=== PATIENT | female | born 1970 | race Caucasian/White ===

== ENCOUNTER 2016-09-19 22:33 | Emergency (ER) | payer OTHER ==
--- NOTE | 2016-09-19 23:01 | ERPHSYRPT ---
- History of Present Illness Time Seen by Provider: 09/19/16 22:59 Source: patient Exam Limitations: no limitations Patient Subjective Stated Complaint: pt reports dog tripped her et she fell on back of head-reports blurred vision after fall et is now nauseated-denies vomiting Triage Nursing Assessment: pt pink warm et [id number] qeustions correctly-moving all extremities with ease Physician History: pt reports dog tripped her et she fell on back of head-reports blurred vision after fall et is now nauseated-denies vomiting Occurred: just prior to arrival Reason for Fall: slipped, tripped Injuries/Pain Location: head Loss of Consciousness: no loss of consciousness Severity of Pain-Max: mild Severity of Pain-Current: mild Modifying Factors: Improves With: nothing Associated Symptoms (Fall): denies symptoms Allergies/Adverse Reactions: morphine Allergy (Verified 09/19/16 22:41) IVP DYE Allergy (Uncoded 09/19/16 22:41) Home Medications: Fluoxetine HCl [Prozac] 40 mg PO DAILY 09/19/16 [History] Naproxen 500 mg PO UD 09/19/16 [History] Simvastatin [Zocor] 40 mg PO DAILY 09/19/16 [History] Hx Tetanus, Diphtheria Vaccination/Date Given: No Hx Influenza Vaccination/Date Given: No Hx Pneumococcal Vaccination/Date Given: No Immunizations Up to Date: Yes - Review of Systems Constitutional: No Fever, No Chills Eyes: No Symptoms Ears, Nose, & Throat: No Symptoms Respiratory: No Cough, No Dyspnea Cardiac: No Chest Pain, No Edema, No Syncope Abdominal/Gastrointestinal: No Abdominal Pain, No Nausea, No Vomiting, No Diarrhea Genitourinary Symptoms: No Dysuria Musculoskeletal: No Back Pain, No Neck Pain Skin: No Rash Neurological: No Dizziness, No Focal Weakness, No Sensory Changes Psychological: No Symptoms Endocrine: No Symptoms All Other Systems: Reviewed and Negative - Past Medical History Pertinent Past Medical History: Yes Neurological History: No Pertinent History ENT History: No Pertinent History Cardiac History: High Cholesterol Respiratory History: No Pertinent History Endocrine Medical History: No Pertinent History Musculoskeletal History: No Pertinent History GI Medical History: No Pertinent History History: No Pertinent History Psycho-Social History: No Pertinent History Female Reproductive Disorders: No Pertinent History Other Medical History: juvenile arthritis - Past Surgical History Past Surgical History: Yes Neuro Surgical History: No Pertinent History Cardiac: No Pertinent History Respiratory: No Pertinent History Gastrointestinal: Appendectomy Genitourinary: No Pertinent History Female Surgical History: Section, Hysterectomy, Other Other Surgical History: X1. D&C - Social History Smoking Status: Current every day smoker How long have you smoked: 20 Exposure to second hand smoke: No Drug Use: none Patient Lives Alone: No - Female History Hx Now: Yes - Nursing Vital Signs Nursing Vital Signs: Initial Vital Signs Temperature 97.6 F Temperature Source Oral Pulse Rate 92 Respiratory Rate 18 Blood Pressure [] 160/105 Pain Intensity 4 - Brent Coma Score Best Eye Response (Brent): (4) open spontaneously Best Verbal Response (Brent): (5) oriented Best Motor Response (Brent): (6) obeys commands [place] Total: 15 - Physical Exam General Appearance: no apparent distress, alert Head Injury: no evidence of injury Eye Exam: PERRL/EOMI ENT Exam: airway nml Neck Exam: normal inspection, No tenderness Respiratory/Chest Exam: normal breath sounds, No chest tenderness, No respiratory distress Cardiovascular Exam: normal heart sounds, regular rate/rhythm Gastrointestinal Exam: soft, No tenderness, No distention, No guarding, No ecchymosis Back Exam: normal inspection, No vertebral tenderness Extremity Exam: normal inspection, normal range of motion, pelvis stable, No deformities Neurologic Exam: alert, oriented x 3, cooperative, sensation nml, No motor deficits Skin Exam: normal color, warm, dry SpO2: 96 Oxygen Delivery: Room Air - CT Exams Head CT Interpretation: Tele-radiologist Report Ordered Tests: Active Orders 24 hr Category Date Time Status HEAD WITHOUT CONTRAST [CT] Stat Exams 09/19/16 22:52 Taken - Progress Progress: improved Counseled pt/family regarding: diagnosis, need for follow-up, rad results - Departure Time of Disposition: 23:41 Departure Disposition: Home Clinical Impression: Head injury, acute, without loss of consciousness Qualifiers: Encounter type: initial encounter Qualified Code(s): S09.90XA - Unspecified injury of head, initial encounter Condition: Stable Critical Care Time: No Referrals: MIKE GOYAL [ACTIVE STAFF] - Instructions: Prevent Falls, Closed Head Injury
[2016-09-19 23:49] VITALS: BP 142/89; PULSE 78; O2SAT 97
--- NOTE | 2016-09-20 08:16 | XRAY ---
Indication: Posterior head injury following fall. Multiple contiguous axial images obtained through the head without contrast. Comparison: None. Ventriculosulcal pattern appears symmetric. No acute intracranial hemorrhage, abnormal extra-axial fluid collection, or mass effect. Fourth ventricle is midline without hydrocephalus. Bony calvarium intact. Visualized paranasal sinuses and mastoid air cells are clear. Impression: No acute intracranial abnormalities. Comment: Preliminary interpretation was made by [facility]. No discrepancy. CTDI 48.07
== END 2016-09-19 23:49 | disposition home or self-care (01) ==
LOC: ED 22:33
DX: S09.90XA Unspecified injury of head, initial encounter (principal); W01.0XXA Fall on same level from slipping, tripping and stumbling without subsequent striking against object, initial encounter; R11.0 Nausea; E78.00 Pure hypercholesterolemia, unspecified; Z79.899 Other long term (current) drug therapy
CPT/HCPCS: 70450; 99283; 99284

== ENCOUNTER 2019-07-16 13:09 | Emergency (ER) | payer BC, OTHER, SELFPAY ==
[2019-07-16] MEDS ORDERED: TYLENOL EXTRA STRENGTH 500 MG PO STA (13:22)
[2019-07-16] MEDS ORDERED: MOTRIN 600 MG PO ONE (13:22)
--- NOTE | 2019-07-16 13:22 | ERPHSYRPT ---
- History of Present Illness Source: patient Exam Limitations: no limitations Physician History: Patient is here with right knee pain. Patient states that she ran into a bed rail last night. Location: right knee Quality: sharp Radiation: none Severity: moderate Duration: last night Timing: after injury Modifying factors/associated signs and symptoms: none tried Allergies/Adverse Reactions: morphine Allergy (Verified 07/16/19 13:23) IVP DYE Allergy (Uncoded 07/16/19 13:23) Home Medications: No Reportable Medications [No Reported Medications] 07/16/19 [History] Hx Tetanus, Diphtheria Vaccination/Date Given: No Hx Influenza Vaccination/Date Given: No Hx Pneumococcal Vaccination/Date Given: No Travel Risk - International Travel Have you traveled outside of the country in past 3 weeks: No Have you or anyone close to you been diagnosed with or: No Do your reside in a community with a known COVID-19 case?: Yes If Yes where:: [facility] - Coronavirus Screening Has patient experienced Coronavirus symptoms: No - Review of Systems Constitutional: No Fever, No Chills Eyes: No Symptoms Ears, Nose, & Throat: No Symptoms Respiratory: No Cough, No Dyspnea Cardiac: No Chest Pain, No Edema, No Syncope Abdominal/Gastrointestinal: No Abdominal Pain, No Nausea, No Vomiting, No Diarrhea Genitourinary Symptoms: No Dysuria Musculoskeletal: Other (right emmanuel pain ), No Back Pain, No Neck Pain Skin: No Rash Neurological: No Dizziness, No Focal Weakness, No Sensory Changes Psychological: No Symptoms Endocrine: No Symptoms All Other Systems: Reviewed and Negative - Past Medical History Pertinent Past Medical History: Yes Neurological History: No Pertinent History ENT History: No Pertinent History Cardiac History: High Cholesterol Respiratory History: No Pertinent History Endocrine Medical History: No Pertinent History Musculoskeletal History: No Pertinent History GI Medical History: No Pertinent History History: No Pertinent History Psycho-Social History: No Pertinent History Female Reproductive Disorders: No Pertinent History Other Medical History: juvenile arthritis - Past Surgical History Past Surgical History: Yes Neuro Surgical History: No Pertinent History Cardiac: No Pertinent History Respiratory: No Pertinent History Gastrointestinal: Appendectomy Genitourinary: No Pertinent History Female Surgical History: Section, Hysterectomy, Other Other Surgical History: X1. D&C - Social History Smoking Status: Current every day smoker How long have you smoked: 20 Exposure to second hand smoke: No Drug Use: none Patient Lives Alone: No - Nursing Vital Signs Nursing Vital Signs: Initial Vital Signs Temperature 98.0 F 07/16/19 13:24 Pulse Rate 84 07/16/19 13:24 Respiratory Rate 18 07/16/19 13:24 Blood Pressure 144/103 07/16/19 13:24 O2 Sat by Pulse Oximetry 98 07/16/19 13:24 Pain Scale Pain Intensity 8 - Physical Exam General Appearance: alert Eyes, Ears, Nose, Throat Exam: moist mucous membranes Neck Exam: non-tender, supple Cardiovascular/Respiratory Exam: chest non-tender, normal breath sounds, regular rate/rhythm, no respiratory distress Gastrointestinal/Abdominal Exam: non-tender, guarding Back Exam: normal inspection, No vertebral tenderness Neuro/Tendon Exam: normal sensation, normal motor functions Mental Status Exam: alert, oriented x 3, cooperative Skin Exam: normal color, warm, dry SpO2 Interpretation: normal Comments: No obvious deformity, sensation intact, 2+ capillary refill, 2 point tactile discrimination intact. 5 out of 5 strength. Decrease range of motion with pain. Compartments are soft, nontender. Overlying skin shows no tenting, bruising, ecchymosis. Ordered Tests: Active Orders 24 hr Category Date Time Status KNEE (3 VIEWS) Stat Exams 07/16/19 13:42 Taken Medication Summary Discontinued Medications Generic Name Dose Route Start Last Admin Trade Name Sincere PRN Reason Stop Dose Admin Acetaminophen 1,000 mg 07/16/19 13:22 07/16/19 13:34 Tylenol Extra Strength 500 Mg PO 07/16/19 13:23 1,000 mg STAT STA Administration Acetaminophen Confirm 07/16/19 13:33 Tylenol Extra Strength 500 Mg Administered 07/16/19 13:34 Dose 1,000 mg .ROUTE .STK-MED ONE Ibuprofen 600 mg 07/16/19 13:22 07/16/19 13:34 Motrin 600 Mg PO 07/16/19 13:23 600 mg STAT ONE Administration Ibuprofen Confirm 07/16/19 13:33 Motrin 600 Mg Administered 07/16/19 13:34 Dose 600 mg .ROUTE .STK-MED ONE - Progress Progress: improved Progress Note: 07/16/19 13:22 Patient has not tried Tylenol or ibuprofen yet. Will start with this. Will obtain x-ray of the right knee. 07/16/19 14:58 X-ray shows no obvious fracture. Patient feels improved with pain medication here. She was given follow-up with Orth this week. She will return here for any new or changing symptoms. Counseled pt/family regarding: diagnosis, need for follow-up - Departure Departure Disposition: Home Clinical Impression: Knee sprain Condition: Stable Critical Care Time: No Referrals: HUMBRETO FLETCHER NP [Primary Care Provider] - Instructions: Knee Sprain (DC) Forms: Ortho Referral
[2019-07-16] MEDS ORDERED: TYLENOL EXTRA STRENGTH 500 MG ONE (13:33)
[2019-07-16] MEDS ORDERED: MOTRIN 600 MG ONE (13:33)
[2019-07-16 14:24] VITALS: BP 132/88; PULSE 80; O2SAT 97
--- NOTE | 2019-07-16 18:59 | XRAY ---
Indication: Pain following injury. Comparison: None 3 views of the right knee demonstrates small medial condyle bone island. No other bony, articular, or soft tissue abnormalities.
== END 2019-07-16 14:23 | disposition home or self-care (01) ==
LOC: ED 13:09
DX: S83.91XA Sprain of unspecified site of right knee, initial encounter (principal); W22.09XA Striking against other stationary object, initial encounter; Y93.9 Activity, unspecified; M25.561 Pain in right knee
CPT/HCPCS: 73562; 99283; A9270-GY

== ENCOUNTER 2019-11-27 19:07 | Emergency (ER) | payer BC, OTHER ==
--- NOTE | 2019-11-27 20:02 | ERPHSYRPT ---
- History of Present Illness Source: patient Exam Limitations: no limitations Patient Subjective Stated Complaint: "I have neck pain that started two days ago and it goes down into my arm." Triage Nursing Assessment: Pt presented alert et oriented x3 answering questions appropriately. Pt reported left sided neck pain that radiates to the left arm. Pt reported associated parasthesias to the left arm. Pt denied any recent injuries or illnesses. Pupils 3mm brisk reaction. Oral mucosa pink/moist. Neck supple non-tender. No noted bruits/thrills. Symmetrical chest expansion. heart tones regular/clear S1/S2. Lungs clear with adequate airflow. Abdomen soft non- tender. Radial pulses equal bilateral. No noted dependent edema. Physician History: 49 yo WF w L trapzius pain x2 days described as pressure. Pt denies injury and states nothing makes better or worse. She also states that that she has been having palpatations/N wo V/diaphoresis/dyspnea. Occurred: days ago (2days) Method of Injury: unknown Quality: intermittent (pressure) Severity of Pain-Max: moderate Severity of Pain-Current: moderate Extremities Pain Location: shoulder: left Modifying Factors: Improves With: nothing Associated Symptoms: nausea, neck pain, No back pain, No chills, No chest discomfort, No chest pain, No dyspnea, No fever, No jaw pain, No sweating, No short of breath, No vomiting Allergies/Adverse Reactions: morphine Allergy (Verified 11/27/19 19:14) IVP DYE Allergy (Uncoded 11/27/19 19:14) Hx Tetanus, Diphtheria Vaccination/Date Given: No Hx Influenza Vaccination/Date Given: Yes Hx Pneumococcal Vaccination/Date Given: No Travel Risk - International Travel Have you traveled outside of the country in past 3 weeks: No - Coronavirus Screening Are you exhibiting any of the following symptoms?: No Close contact with a COVID-19 positive Pt in past 14-21 Days: No - Review of Systems Constitutional: No Symptoms Eyes: No Symptoms Ears, Nose, & Throat: No Symptoms Respiratory: No Symptoms Cardiac: Palpitations, No Chest Pain, No Edema, No Syncope, No Orthopnea, No PND Abdominal/Gastrointestinal: Nausea, No Abdominal Pain, No Vomiting, No Diarrhea, No Constipation, No Hematemesis, No Hematochezia, No Melena, No Dysphagia, No Appetite Changes Genitourinary Symptoms: No Symptoms Musculoskeletal: No Symptoms Skin: No Symptoms Neurological: No Symptoms Psychological: No Symptoms Endocrine: No Symptoms Hematologic/Lymphatic: No Symptoms Immunological/Allergic: No Symptoms - Past Medical History Pertinent Past Medical History: Yes Neurological History: No Pertinent History ENT History: No Pertinent History Cardiac History: High Cholesterol Respiratory History: No Pertinent History Endocrine Medical History: No Pertinent History Musculoskeletal History: No Pertinent History GI Medical History: No Pertinent History History: No Pertinent History Psycho-Social History: Depression Female Reproductive Disorders: No Pertinent History Other Medical History: juvenile arthritis - Past Surgical History Past Surgical History: Yes Neuro Surgical History: No Pertinent History Cardiac: No Pertinent History Respiratory: No Pertinent History Gastrointestinal: Appendectomy Genitourinary: No Pertinent History Musculoskeletal: Other Female Surgical History: Section, Hysterectomy, Other Other Surgical History: X1. D&C. Left shoulder surgery in 2017 for torn bicep - Social History Smoking Status: Current every day smoker How long have you smoked: 20 Exposure to second hand smoke: No Drug Use: none Patient Lives Alone: No Significant Family History: no pertinent family hx - Female History Hx Now: No (total hysterectomy) - Nursing Vital Signs Nursing Vital Signs: Initial Vital Signs Temperature 96.1 F 11/27/19 19:07 Pulse Rate 97 H 11/27/19 19:07 Respiratory Rate 18 11/27/19 19:07 Blood Pressure 167/98 11/27/19 19:07 O2 Sat by Pulse Oximetry 97 11/27/19 19:07 Pain Scale Pain Intensity 5 - Physical Exam General Appearance: no apparent distress Eyes, Ears, Nose, Throat Exam: normal ENT inspection, TMs normal, pharynx normal Neck Exam: normal inspection, non-tender Cardiovascular/Respiratory Exam: chest non-tender, normal breath sounds, regular rate/rhythm, heart sounds normal, no JVD Abdominal Exam: non-tender, soft, tenderness Back Exam: normal inspection, normal range of motion, CVA tenderness, No vertebral tenderness Shoulder Exam: pain (L trapezius TTP) Elbow/Forearm Exam: normal inspection Wrist Exam: normal inspection Hand Exam: normal inspection Mental Status Exam: alert, oriented x 3, cooperative Skin Exam: normal color, warm, dry, No rash SpO2 Interpretation: normal SpO2: 97 O2 Delivery: Room Air - Course Nursing assessment & vital signs reviewed: Yes EKG Interpreted by Me: RATE (NSR/R90/Normal Qt-Qtc/Flat T waves/No acute changes) Ordered Tests: Active Orders 24 hr Category Date Time Status EKG-ER Only STAT Care 11/27/19 19:32 Active TROPONIN Q3H Lab 11/27/19 19:45 Completed TROPONIN Q3H Lab 11/27/19 22:45 Ordered TROPONIN Q3H Lab 11/28/19 01:45 Ordered TROPONIN Q3H Lab 11/28/19 04:45 Ordered TROPONIN Q3H Lab 11/28/19 07:45 Ordered Lab/Rad Data: Laboratory Results 11/27/19 Range/Units 19:45 Troponin I < 0.012 (0.000-0.034) ng/mL - Progress Progress: unchanged Progress Note: 11/27/19 20:23 60mg IM toradol/Pain most likely strained L trapezius muscle Counseled pt/family regarding: lab results, diagnosis, need for follow-up - Departure Departure Disposition: Home Clinical Impression: Trapezius muscle strain Condition: Stable Critical Care Time: No Referrals: HUMBERTO FLETCHER LONG DISTANCE OPERATOR [Primary Care Provider] - Instructions: Cervical Muscle Strain (DC) Additional Instructions: Rest/heat/Massage Return to ER for increasing chest pain/shortness of breath Toradol as needed for pain Prescriptions: Ketorolac Tromethamine [Toradol] 10 mg PO TID PRN PRN #10 tablet PRN Reason: Pain
[2019-11-27] MEDS ORDERED: TORAdol 30 mg Injection IM ONE (20:22)
[2019-11-27] MEDS ORDERED: TORAdol 30 mg Injection ONE (20:27)
[2019-11-27 20:34] VITALS: BP 127/80; PULSE 78; O2SAT 96
== END 2019-11-27 20:44 | disposition home or self-care (01) ==
LOC: ED 19:07
DX: S46.919A Strain of unspecified muscle, fascia and tendon at shoulder and upper arm level, unspecified arm, initial encounter (principal); M54.2 Cervicalgia; M25.519 Pain in unspecified shoulder
CPT/HCPCS: 36415; 84484; 93005; 96372; 99284; J1885

== ENCOUNTER 2023-03-08 11:34 | Inpatient (IN) | payer BC, OTHER ==
--- NOTE | 2023-03-08 11:44 | ERPHSYRPT ---
- History of Present Illness Time Seen by Provider: 03/08/23 11:44 Source: patient, family Exam Limitations: clinical condition Physician History: This is a 52-year-old white female patient who continues to smoke cigarettes daily and presents with shortness of breath and coughing that began yesterday and worsened today. Patient has headache, myalgias and arthralgias as well as vomiting episode after gagging on phlegm when coughing. She also has some wheeziness. Patient has a history of hyperlipidemia, and depression. She is allergic to morphine and IVP dye. However, she did state that she can take hydrocodone for cough suppression. Patient's room air oxygenation level was 86%. After patient was placed on 2 L, her oxygen level went up to 93 to 95%. Timing/Duration: yesterday Severity of Dyspnea-Max: moderate Severity of Dyspnea-Current: moderate Possible Cause: occasional episodes Modifying Factors: Improves With: coughing Associated Symptoms: cough, wheezing, No chest pain/discomfort Allergies/Adverse Reactions: morphine Allergy (Verified 03/08/23 11:36) IVP DYE Allergy (Uncoded 03/08/23 11:36) Home Medications: Aspirin 81 gm Chew [Baby Aspirin 81 mg Chew] 1 tab PO DAILY 03/08/23 [History] Hx Tetanus, Diphtheria Vaccination/Date Given: No Hx Influenza Vaccination/Date Given: Yes Hx Pneumococcal Vaccination/Date Given: No Travel Risk - International Travel Have you traveled outside of the country in past 3 weeks: No - Coronavirus Screening Are you exhibiting any of the following symptoms?: Yes Symptoms: Cough: New Onset, Headaches/Body Aches/Fatigue Close contact with a COVID-19 positive Pt in past 14-21 Days: No - Review of Systems Constitutional: No Symptoms Eyes: No Symptoms Ears, Nose, & Throat: No Symptoms Respiratory: Cough, Dyspnea, Wheezing Cardiac: No Symptoms Abdominal/Gastrointestinal: Nausea Genitourinary Symptoms: No Symptoms Musculoskeletal: No Symptoms Skin: No Symptoms Neurological: No Symptoms Psychological: No Symptoms Endocrine: No Symptoms Hematologic/Lymphatic: No Symptoms Immunological/Allergic: No Symptoms All Other Systems: Reviewed and Negative - Past Medical History Pertinent Past Medical History: Yes Neurological History: No Pertinent History ENT History: No Pertinent History Cardiac History: High Cholesterol Respiratory History: No Pertinent History Endocrine Medical History: No Pertinent History Musculoskeletal History: No Pertinent History GI Medical History: No Pertinent History History: No Pertinent History Psycho-Social History: Depression Female Reproductive Disorders: No Pertinent History Other Medical History: juvenile arthritis - Past Surgical History Past Surgical History: Yes Neuro Surgical History: No Pertinent History Cardiac: No Pertinent History Respiratory: No Pertinent History Gastrointestinal: Appendectomy Genitourinary: No Pertinent History Musculoskeletal: Other Female Surgical History: Section, Hysterectomy, Other Other Surgical History: X1. D&C. Left shoulder surgery in 2017 for torn bicep - Social History Smoking Status: Current every day smoker How long have you smoked: 20 Exposure to second hand smoke: No Drug Use: none Patient Lives Alone: No Significant Family History: no pertinent family hx - Nursing Vital Signs Nursing Vital Signs: Initial Vital Signs Temperature 98.5 F 03/08/23 11:40 Pulse Rate 96 H 03/08/23 11:40 Respiratory Rate 26 H 03/08/23 11:40 Blood Pressure 168/96 03/08/23 11:40 O2 Sat by Pulse Oximetry 86 L 03/08/23 11:40 Pain Scale Pain Intensity 5 - Physical Exam General Appearance: mild distress, alert, anxiety Eye Exam: PERRL/EOMI, eyes nml inspection Ears, Nose, Throat Exam: hearing grossly normal, normal ENT inspection, normal pharynx Neck Exam: normal inspection, non-tender, supple, full range of motion Respiratory Exam: respiratory distress, rhonchi (Bilateral), wheezing (Bilateral expiratory), No chest tenderness Cardiovascular/Chest Exam: normal heart sounds, regular rate/rhythm Abdominal/Gastrointestinal Exam: soft, normal bowel sounds, tenderness Rectal Exam: not done Extremity Exam: non-tender, normal range of motion, normal inspection Neurologic Exam: alert, oriented x 3, cooperative, table tender II-XII nml as tested, normal mood/affect Skin Exam: normal color, warm, dry Lymphatic Exam: No adenopathy SpO2 Interpretation: hypoxic O2 Delivery: Room Air - Course Nursing assessment & vital signs reviewed: Yes EKG Interpreted by Me: RATE, Sinus Rhythm, Right Mobile Deviation, NORMAL INTERVALS, NORMAL QRS, NORMAL ST-T, Other (No acute ischemic changes on today's twelve-lead EKG.) Ordered Tests: Active Orders 24 hr Category Date Time Status Fisher Mussel STAT Care 03/08/23 11:55 Active EKG-ER Only STAT Care 03/08/23 11:55 Active IV Insertion STAT Care 11/20/23 11:55 Active Pulse Oximetry (ED) STAT Care 03/08/23 11:55 Active CHEST 1 VIEW (PORTABLE) Stat Exams 03/08/23 11:55 Completed CHEST WITHOUT CONTRAST [CT] Stat Exams 03/08/23 14:14 Completed BLOOD CULTURE Stat Lab 03/08/23 12:20 Received CBC W DIFF Stat Lab 03/08/23 12:13 Completed CMP Stat Lab 03/08/23 12:13 Completed D-DIMER QUANTITATIVE Stat Lab 03/08/23 13:15 Completed Lactic Acid Stat Lab 03/08/23 13:15 Completed MONO SCREEN Stat Lab 03/08/23 12:13 Completed NT PRO BNPII Stat Lab 03/08/23 12:13 Completed TROPONIN Q4H Lab 03/08/23 12:13 Completed TROPONIN Q4H Lab 03/08/23 16:00 Ordered TROPONIN Q4H Lab 03/08/23 20:00 Ordered Transfer Order Routine Transfer 03/08/23 Ordered Medication Summary Generic Name Dose Route Start Last Admin Trade Name Freq PRN Reason Stop Dose Admin Sodium Chloride 1,000 mls @ 100 mls/hr 03/08/23 12:00 03/08/23 12:15 Sodium Chloride 0.9% 1000 Ml IV 04/07/23 11:59 100 mls/hr .Q10H ELIECER Administration Ceftriaxone Sodium/Dextrose 1 g in 50 mls @ 100 mls/hr 03/08/23 15:49 Rocephin 1 Gm-D5w 50 Ml Bag IV 03/08/23 16:18 STAT STA Discontinued Medications Generic Name Dose Route Start Last Admin Trade Name Freq PRN Reason Stop Dose Admin Hydrocodone Bitart/Acetaminophen 10 ml 03/08/23 11:57 03/08/23 12:24 Hydrocodone/Acetaminophen 5 Ml Udcup PO 03/08/23 11:58 10 ml STAT STA Administration Hydrocodone Bitart/Acetaminophen Confirm 03/08/23 12:13 Hydrocodone/Acetaminophen 5 Ml Udcup Administered 03/08/23 12:14 Dose 10 ml .ROUTE .STK-MED ONE Albuterol/Ipratropium Confirm 03/08/23 11:57 Ipratropium/Albuterol Sulfate 3 Ml Ampul.Neb Administered 03/08/23 11:58 Dose 3 ml IH .STK-MED ONE Albuterol/Ipratropium 3 ml 03/08/23 12:02 03/08/23 12:03 Ipratropium/Albuterol Sulfate 3 Ml Ampul.Neb IH 03/08/23 12:03 3 ml STAT ONE Administration Methylprednisolone Sodium 0 mg 03/08/23 11:56 03/08/23 12:15 Succinate 125 mg/ Sterile IV 03/08/23 11:57 125 mg Water 2 ml STAT ONE Administration Methylprednisolone Sodium Succinate Confirm 03/08/23 12:13 Methylprednis Sod Succ 125 Mg/2 Ml Vial Administered 03/08/23 12:14 Dose 125 mg .ROUTE .STK-MED ONE Ondansetron HCl 4 mg 03/08/23 11:55 03/08/23 12:14 Ondansetron Hcl 4 Mg/2 Ml Vial IV 03/08/23 11:56 4 mg STAT STA Administration Ondansetron HCl Confirm 03/08/23 12:13 Ondansetron Hcl 4 Mg/2 Ml Vial Administered 03/08/23 12:14 Dose 4 mg .ROUTE .STK-MED ONE Sterile Water Confirm 03/08/23 12:13 Water For Injection,Sterile 10 Ml Vial Administered 03/08/23 12:14 Dose 10 ml IJ .STK-MED ONE Lab/Rad Data: Laboratory Result Diagrams 03/08/23 12:13 03/08/23 12:13 Laboratory Results 03/08/23 03/08/23 03/08/23 Range/Units 13:15 13:15 12:22 WBC (4.0-10.5) x10^3/uL RBC (4.1-5.4) x10^6/uL Hgb (12.0-16.0) g/dL Hct (35-47) % MCV (78-100) fL MCH (26-32) pg MCHC (32-36) g/dL RDW (11.5-14.0) % Plt Count (150-450) x10^3/uL MPV (7.5-11.0) fL Gran % (36.0-66.0) % Immature Gran % (Auto) (0.00-0.4) % Nucleat RBC Rel Count (0.00-0.1) % Eos # (Auto) (0-0.5) x10^3/uL Immature Gran # (Auto) (0.00-0.03) x10^3u/L Absolute Lymphs (auto) (1.0-4.6) x10^3/uL Absolute Monos (auto) (0.0-1.3) x10^3/uL Absolute Nucleated RBC (0.00-0.01) x10^3u/L Lymphocytes % (24.0-44.0) % Monocytes % (0.0-12.0) % Eosinophils % (0.00-5.0) % Basophils % (0.0-0.4) % Absolute Granulocytes (1.4-6.9) x10^3/uL Basophils # (0-0.4) x10^3/uL D-Dimer 0.23 (0.0-0.50) mg/L Sodium (137-145) mmol/L Potassium (3.5-5.1) mmol/L Chloride (98-107) mmol/L Carbon Dioxide (22-30) mmol/L Anion Gap (5-15) MEQ/L BUN (7-17) mg/dL Creatinine (0.52-1.04) mg/dL Estimated GFR ML/MIN Glucose (74-106) mg/dL Lactic Acid 1.7 (0.4-2.0) Calcium (8.4-10.2) mg/dL Total Bilirubin (0.2-1.3) mg/dL AST (14-36) U/L ALT (0-35) U/L Alkaline Phosphatase (38-126) U/L Troponin I (0.000-0.034) ng/mL NT-Pro-B Natriuret Pep (<300) pg/mL Serum Total Protein (6.3-8.2) g/dL Albumin (3.5-5.0) g/dL Monoscreen (NEGATIVE) Influenza Type A Ag (NEGATIVE) Influenza Type B Ag (NEGATIVE) RSV (PCR) (NEGATIVE) SARS-CoV-2 (PCR) (NEGATIVE) Group A Strep Antibody NOT DETECTED (NEGATIVE) 03/08/23 03/08/23 03/08/23 Range/Units 12:13 12:13 12:13 WBC (4.0-10.5) x10^3/uL RBC (4.1-5.4) x10^6/uL Hgb (12.0-16.0) g/dL Hct (35-47) % MCV (78-100) fL MCH (26-32) pg MCHC (32-36) g/dL RDW (11.5-14.0) % Plt Count (150-450) x10^3/uL MPV (7.5-11.0) fL Gran % (36.0-66.0) % Immature Gran % (Auto) (0.00-0.4) % Nucleat RBC Rel Count (0.00-0.1) % Eos # (Auto) (0-0.5) x10^3/uL Immature Gran # (Auto) (0.00-0.03) x10^3u/L Absolute Lymphs (auto) (1.0-4.6) x10^3/uL Absolute Monos (auto) (0.0-1.3) x10^3/uL Absolute Nucleated RBC (0.00-0.01) x10^3u/L Lymphocytes % (24.0-44.0) % Monocytes % (0.0-12.0) % Eosinophils % (0.00-5.0) % Basophils % (0.0-0.4) % Absolute Granulocytes (1.4-6.9) x10^3/uL Basophils # (0-0.4) x10^3/uL D-Dimer (0.0-0.50) mg/L Sodium (137-145) mmol/L Potassium (3.5-5.1) mmol/L Chloride (98-107) mmol/L Carbon Dioxide (22-30) mmol/L Anion Gap (5-15) MEQ/L BUN (7-17) mg/dL Creatinine (0.52-1.04) mg/dL Estimated GFR ML/MIN Glucose (74-106) mg/dL Lactic Acid (0.4-2.0) Calcium (8.4-10.2) mg/dL Total Bilirubin (0.2-1.3) mg/dL AST (14-36) U/L ALT (0-35) U/L Alkaline Phosphatase (38-126) U/L Troponin I < 0.012 (0.000-0.034) ng/mL NT-Pro-B Natriuret Pep 134 (<300) pg/mL Serum Total Protein (6.3-8.2) g/dL Albumin (3.5-5.0) g/dL Monoscreen NEGATIVE (NEGATIVE) Influenza Type A Ag (NEGATIVE) Influenza Type B Ag (NEGATIVE) RSV (PCR) (NEGATIVE) SARS-CoV-2 (PCR) (NEGATIVE) Group A Strep Antibody (NEGATIVE) 03/08/23 03/08/23 03/08/23 Range/Units 12:13 12:13 11:53 WBC 19.5 H (4.0-10.5) x10^3/uL RBC 5.23 (4.1-5.4) x10^6/uL Hgb 14.6 (12.0-16.0) g/dL Hct 44.6 (35-47) % MCV 85.3 (78-100) fL MCH 27.9 (26-32) pg MCHC 32.7 (32-36) g/dL RDW 14.4 H (11.5-14.0) % Plt Count 441 (150-450) x10^3/uL MPV 8.9 (7.5-11.0) fL Gran % 81.3 H (36.0-66.0) % Immature Gran % (Auto) 0.8 H (0.00-0.4) % Nucleat RBC Rel Count 0.0 (0.00-0.1) % Eos # (Auto) 0.13 (0-0.5) x10^3/uL Immature Gran # (Auto) 0.15 H (0.00-0.03) x10^3u/L Absolute Lymphs (auto) 2.01 (1.0-4.6) x10^3/uL Absolute Monos (auto) 1.28 (0.0-1.3) x10^3/uL Absolute Nucleated RBC 0.00 (0.00-0.01) x10^3u/L Lymphocytes % 10.3 L (24.0-44.0) % Monocytes % 6.6 (0.0-12.0) % Eosinophils % 0.7 (0.00-5.0) % Basophils % 0.3 (0.0-0.4) % Absolute Granulocytes 15.87 H (1.4-6.9) x10^3/uL Basophils # 0.05 (0-0.4) x10^3/uL D-Dimer (0.0-0.50) mg/L Sodium 139 (137-145) mmol/L Potassium 3.7 (3.5-5.1) mmol/L Chloride 102 (98-107) mmol/L Carbon Dioxide 26 (22-30) mmol/L Anion Gap 14.6 (5-15) MEQ/L BUN 9 (7-17) mg/dL Creatinine 0.46 L (0.52-1.04) mg/dL Estimated GFR 113.7 ML/MIN Glucose 118 H (74-106) mg/dL Lactic Acid (0.4-2.0) Calcium 9.8 (8.4-10.2) mg/dL Total Bilirubin 0.70 (0.2-1.3) mg/dL AST 25 (14-36) U/L ALT 18 (0-35) U/L Alkaline Phosphatase 127 H (38-126) U/L Troponin I (0.000-0.034) ng/mL NT-Pro-B Natriuret Pep (<300) pg/mL Serum Total Protein 8.7 H (6.3-8.2) g/dL Albumin 4.6 (3.5-5.0) g/dL Monoscreen (NEGATIVE) Influenza Type A Ag NEGATIVE (NEGATIVE) Influenza Type B Ag NEGATIVE (NEGATIVE) RSV (PCR) NEGATIVE (NEGATIVE) SARS-CoV-2 (PCR) NEGATIVE (NEGATIVE) Group A Strep Antibody (NEGATIVE) - Progress Progress: improved, re-examined Air Movement: fair Progress Note: 03/08/23 13:30 This patient's medical history is 1 of moderate to high complexity. Level complex in the work-up performed is based on review of the patient's past medical history, review the patient's medication list, review of patient drug allergy list, history present illness and physical findings on examination. The work-up in this patient includes placement of intravenous line, infusion of normal saline solution, CBC, CMP, chest x-ray, infusion of Solu-Medrol and provided the patient with hydrocodone elixir cough syrup, viral swabs, group A strep swab, D-dimer level and troponin level. 03/08/23 13:31 The chest x-ray was interpreted by the radiologist and I reviewed the impression. The single view chest x-ray shows nonacute findings. 03/08/23 15:04 I reviewed the laboratory results. I interpreted them as well. Patient has a leukocytosis with a white cell count of 19,500. The remainder of her work-up laboratory data does not show anything acute or emergent. CT scan of the chest without contrast shows chronic findings. There is right middle lobe scarring/atelectasis. There is old granulomatous nodule/disease present. This patient presented with hypoxia. Her oxygen saturation increased on 2 L. H owever she required an increase to 4 L and she has been maintaining her oxygen saturation levels at 95 to 96% on 4 L oxygen nasal cannula. When we attempted to drop her oxygen level she desatted down to 88%. Even on the 4 L nasal cannula oxygen supplementation, with ambulation, she dropped down to 90% oxygen saturation level. It may be that her x-rays have not shown a pneumonia at this point. She is not medically stable, in my opinion, to be discharged to home at this point. I will contact the telehospitalist about bringing her into the hospital. We will discuss issues about IV hydration, intravenous antibiotics, oxygen supplementation, steroid use intravenously and nebulizer treatments in the hospital setting under observation status. Blood Culture(s) Obtained: Yes Counseled pt/family regarding: lab results, diagnosis, need for follow-up, rad results Medical Desision Making - Discussion of managment Care discussed with:: hospitalist (Dr. Aranda) Reviewed:: Test results, Need for additional workup Agreed on:: place in obs Will see patient: in hospital - Diagnostic Testing Diagnostic test were ordered, analyzed, and reviewed by me: Yes Radiological Interpretation: Reviewed by me, Teleradiologist Report - Risk of complications The pt has a high risk of morbidity or mortality based on: Decision regarding hospitilization or escalation of hosp level of care - Departure Departure Disposition: Observation Clinical Impression: Shortness of breath, Hypoxia, Leukocytosis Condition: Fair Critical Care Time: No Referrals: DOCTOR,NO FAMILY [Primary Care Provider] - Follow up/PCP as directed
[2023-03-08] MEDS ORDERED: Zofran 4 MG/2 ML VIAL IV STA (11:55)
[2023-03-08] MEDS ORDERED: solu-MEDROL 125 MG, Sterile H2O 10 ml 2 ML IV ONE ×2 (11:56)
[2023-03-08] MEDS ORDERED: HYDROCODONE-ACETAMIN 2.5-108/5 ML SOLUTION PO STA (11:57)
[2023-03-08] MEDS ORDERED: DUONEB 0.5-3 MG/3 ml Neb IH ONE ×2 (11:57→12:02)
[2023-03-08] MEDS ORDERED: Sodium Chloride 0.9% 1000 ML 1,000 ML IV SCH (12:00)
[2023-03-08] MEDS ORDERED: HYDROCODONE-ACETAMIN 2.5-108/5 ML SOLUTION ONE (12:13)
[2023-03-08] MEDS ORDERED: Sterile H2O 10 ml IJ ONE (12:13)
[2023-03-08] MEDS ORDERED: Zofran 4 MG/2 ML VIAL ONE (12:13)
[2023-03-08] MEDS ORDERED: solu-MEDROL ONE (12:13)
[2023-03-08] MEDS ORDERED: Sodium Chloride 0.9% 1000 ML 1,000 ML ONE (12:13)
[2023-03-08 12:32] LABS: INFLUENZA A NEGATIVE (NEGATIVE); INFLUENZA B NEGATIVE (NEGATIVE); RESPIRATORY SYNCTIAL VIRUS NEGATIVE (NEGATIVE); SARS-CoV-2 Xpert Express NEGATIVE (NEGATIVE)
--- NOTE | 2023-03-08 12:35 | XRAY ---
Indication: Short of breath. Comparison: None Portable chest demonstrates tiny calcified pulmonary, mediastinal, and hilar calcified granulomas. No focal infiltrate, consolidation, or large effusion. Heart is not enlarged. Bony thorax intact. Impression: Nonacute one view chest. Incidental old granulomatous disease.
[2023-03-08 12:49] LABS: Absolute Neutrophil Ct (ANC) 15.87 x10^3/uL (1.4-6.9); BASOPHIL % 0.3 % (0.0-0.4); Basophil (Absolute #) 0.05 x10^3/uL (0-0.4); Eosinophil % 0.7 % (0.00-5.0); Eosinophil (Absolute #) 0.13 x10^3/uL (0-0.5); Hematocrit 44.6 % (35-47); Hemoglobin 14.6 g/dL (12.0-16.0); IMMATURE GRAN # 0.15 x10^3u/L (0.00-0.03); IMMATURE GRAN % 0.8 % (0.00-0.4); Lymphocyte (Absolute #) 2.01 x10^3/uL (1.0-4.6); Lymphocytes % 10.3 % (24.0-44.0); Mean Cell Volume 85.3 fL (78-100); Mean Corpuscular Hemoglobin 27.9 pg (26-32); Mean Corpuscular Hgb Concent. 32.7 g/dL (32-36); Mean Platelet Volume 8.9 fL (7.5-11.0); Monocyte (Absolute #) 1.28 x10^3/uL (0.0-1.3); Monocytes % 6.6 % (0.0-12.0); Neutrophil % 81.3 % (36.0-66.0); Platelet Count 441 x10^3/uL (150-450); Red Blood Count 5.23 x10^6/uL (4.1-5.4); Red Cell Distribution Width 14.4 % (11.5-14.0); White Blood Count 19.5 x10^3/uL (4.0-10.5)
[2023-03-08 13:04] LABS: ALBUMIN 4.6 g/dL (3.5-5.0); ANION GAP 14.6 MEQ/L (5-15); BILIRUBIN,TOTAL 0.7 mg/dL (0.2-1.3); Calcium 9.8 mg/dL (8.4-10.2); Creatinine 1 0.46 mg/dL (0.52-1.04); EST GLOMERULAR FILTRATION RATE 113.7 ML/MIN; Potassium 3.7 mmol/L (3.5-5.1); Total Protein 8.7 g/dL (6.3-8.2)
--- NOTE | 2023-03-08 14:56 | XRAY ---
Indication: Short of breath. Multiple contiguous axial images obtained through the chest without contrast. Comparison: None Lungs demonstrates multiple small bilateral calcific granulomas favoring old granulomatous disease. Minimal right middle lobe subsegmental atelectasis/scarring. No infiltrate or effusion. Heart is not enlarged with scattered coronary calcifications. Aorta is normal in course and caliber. [place] mediastinal and bilateral hilar calcified nodes. Bony thorax intact with minimal generative changes throughout the spine. Limited upper abdomen demonstrates 7 mm gallstone and tiny hepatic calcified granuloma. Impression: 1. Chronic findings including right middle lobe atelectasis/scarring, subcentimeter gallstone, and old granulomatous disease. 2. Remaining CT chest without contrast exam is negative.
[2023-03-08] MEDS ORDERED: ROCEPHIN 1 Gm-D5w 50 ml Bag** 1 G/50 ML IVPB IV STA (15:49)
[2023-03-08] MEDS ORDERED: ROCEPHIN 1 Gm-D5w 50 ml Bag** 1 G/50 ML IVPB IV ONE (15:54)
--- NOTE | 2023-03-08 17:23 | PCM.HP ---
History of Present Illness - Chief Complaint Chief Complaint: SOB, Hypoxia, Leukocytosis Date: 03/08/23 (1700) History of Present Illness: is a 52 year old female with dyspnea for about 24 hours. She has had severe cough during the night productive of purulent sputum She was hypoxic on admission with O2 down to 86%. She is doing well on supplemental oxygen. She developed some back pain from the coughing. She reports fever at home but no chills. No sore throat. No abdominal pain. She had nausea but no vomiting. No diarrhea or constipation. No urinary complaints. No edema. PMH includes hyperlipidemia and juvenile rheumatoid arthritis. Current meds only aspirin. She smokes about one PPD. - Review of Systems Constitutional: Fever, No Chills Eyes: No Symptoms Ears, Nose, & Throat: No Symptoms Respiratory: Cough, Short Of Breath, Wheezing Cardiac: No Symptoms, No Chest Pain, No Edema Abdominal/Gastrointestinal: No Symptoms Musculoskeletal: No Symptoms Skin: No Symptoms Neurological: No Symptoms Psychological: No Symptoms Endocrine: No Symptoms Hematologic/Lymphatic: No Symptoms Immunological/Allergic: No Symptoms All Other Systems: Reviewed and Negative Medications & Allergies Home Medications: Home Medication List Aspirin 81 gm Chew [Baby Aspirin 81 mg Chew] 81 mg PO DAILY 03/08/23 [History Confirmed 03/08/23] Ibuprofen 200 mg [Motrin 200 mg] 600 mg PO DAILY PRN PRN 03/08/23 [History Confirmed 03/08/23] Allergies/Adverse Reactions: Allergies Allergy/AdvReac Type Severity Reaction Status Date / Time morphine Allergy Verified 03/08/23 11:36 IVP DYE Allergy Uncoded 03/08/23 11:36 - Past Medical History Past Medical History: Yes Neurological History: No Pertinent History ENT History: No Pertinent History Cardiac History: High Cholesterol Respiratory History: No Pertinent History Endocrine Medical History: No Pertinent History Musculoskelatal History: No Pertinent History GI Medical History: No Pertinent History History: No Pertinent History Pyscho-Social History: Depression Reproductive Disorders: No Pertinent History Comment: juvenile arthritis - Female History Hx Last Menstrual Period: 2000 Are you now?: No - Past Surgical History Past Surgical History: Yes Neuro Surgical History: No Pertinent History Cardiac History: No Pertinent History Respiratory Surgery: No Pertinent History GI Surgical History: Appendectomy Genitourinary Surgical Hx: No Pertinent History Musculskeletal Surgical Hx: Other Female Surgical History: Section, Hysterectomy, Other Other Surgical History: X1. D&C. Left shoulder surgery in 2017 for torn bicep - Social History Smoking Status: Current every day smoker How long have you smoked: 45 years Exposure to second hand smoke: No Alcohol: None Drug Use: none Significant Family History: no pertinent family hx - Physical Exam Vital Signs: Vital Signs - 24 hr Temp Pulse Resp BP BP Pulse Ox 03/08/23 16:12 97.7 F 90 20 142/70 93 L 03/08/23 14:00 85 14 127/79 91 L 03/08/23 13:30 85 20 131/78 86 L 03/08/23 13:00 95 H 23 152/87 92 L 03/08/23 12:30 103 H 22 138/62 92 L 03/08/23 12:06 94 H 22 92 L 03/08/23 12:00 100 H 28 H 139/108 91 L 03/08/23 11:40 98.5 F 96 H 22 168/96 86 L General Appearance: moderate distress Neurologic Exam: alert, oriented x 3, cooperative, herbicide sprayer II-XII nml as tested, normal mood/affect Eye Exam: PERRL/EOMI, eyes nml inspection Ears, Nose, Throat Exam: normal ENT inspection Neck Exam: normal inspection, non-tender, supple Respiratory Exam: accessory muscle use, crackles/rales, wheezing Cardiovascular Exam: regular rate/rhythm, normal heart sounds Gastrointestinal/Abdomen Exam: soft, normal bowel sounds, No tenderness, No mass Pelvic Exam: not done Rectal Exam: deferred Back Exam: normal inspection Extremity Exam: normal inspection Skin Exam: normal color, warm, dry Results - Labs Lab/Micro Results: Lab Results-Last 24 Hours 03/08/23 03/08/23 03/08/23 Range/Units 11:53 12:13 12:13 WBC 19.5 H (4.0-10.5) x10^3/uL RBC 5.23 (4.1-5.4) x10^6/uL Hgb 14.6 (12.0-16.0) g/dL Hct 44.6 (35-47) % MCV 85.3 (78-100) fL MCH 27.9 (26-32) pg MCHC 32.7 (32-36) g/dL RDW 14.4 H (11.5-14.0) % Plt Count 441 (150-450) x10^3/uL MPV 8.9 (7.5-11.0) fL Gran % 81.3 H (36.0-66.0) % Immature Gran % (Auto) 0.8 H (0.00-0.4) % Nucleat RBC Rel Count 0.0 (0.00-0.1) % Eos # (Auto) 0.13 (0-0.5) x10^3/uL Immature Gran # (Auto) 0.15 H (0.00-0.03) x10^3u/L Absolute Lymphs (auto) 2.01 (1.0-4.6) x10^3/uL Absolute Monos (auto) 1.28 (0.0-1.3) x10^3/uL Absolute Nucleated RBC 0.00 (0.00-0.01) x10^3u/L Lymphocytes % 10.3 L (24.0-44.0) % Monocytes % 6.6 (0.0-12.0) % Eosinophils % 0.7 (0.00-5.0) % Basophils % 0.3 (0.0-0.4) % Absolute Granulocytes 15.87 H (1.4-6.9) x10^3/uL Basophils # 0.05 (0-0.4) x10^3/uL D-Dimer (0.0-0.50) mg/L Sodium 139 (137-145) mmol/L Potassium 3.7 (3.5-5.1) mmol/L Chloride 102 (98-107) mmol/L Carbon Dioxide 26 (22-30) mmol/L Anion Gap 14.6 (5-15) MEQ/L BUN 9 (7-17) mg/dL Creatinine 0.46 L (0.52-1.04) mg/dL Estimated GFR 113.7 ML/MIN Glucose 118 H (74-106) mg/dL Lactic Acid (0.4-2.0) Calcium 9.8 (8.4-10.2) mg/dL Total Bilirubin 0.70 (0.2-1.3) mg/dL AST 25 (14-36) U/L ALT 18 (0-35) U/L Alkaline Phosphatase 127 H (38-126) U/L Troponin I (0.000-0.034) ng/mL NT-Pro-B Natriuret Pep (<300) pg/mL Serum Total Protein 8.7 H (6.3-8.2) g/dL Albumin 4.6 (3.5-5.0) g/dL Monoscreen (NEGATIVE) Influenza Type A Ag NEGATIVE (NEGATIVE) Influenza Type B Ag NEGATIVE (NEGATIVE) RSV (PCR) NEGATIVE (NEGATIVE) SARS-CoV-2 (PCR) NEGATIVE (NEGATIVE) Group A Strep Antibody (NEGATIVE) 03/08/23 03/08/23 03/08/23 Range/Units 12:13 12:13 12:13 WBC (4.0-10.5) x10^3/uL RBC (4.1-5.4) x10^6/uL Hgb (12.0-16.0) g/dL Hct (35-47) % MCV (78-100) fL MCH (26-32) pg MCHC (32-36) g/dL RDW (11.5-14.0) % Plt Count (150-450) x10^3/uL MPV (7.5-11.0) fL Gran % (36.0-66.0) % Immature Gran % (Auto) (0.00-0.4) % Nucleat RBC Rel Count (0.00-0.1) % Eos # (Auto) (0-0.5) x10^3/uL Immature Gran # (Auto) (0.00-0.03) x10^3u/L Absolute Lymphs (auto) (1.0-4.6) x10^3/uL Absolute Monos (auto) (0.0-1.3) x10^3/uL Absolute Nucleated RBC (0.00-0.01) x10^3u/L Lymphocytes % (24.0-44.0) % Monocytes % (0.0-12.0) % Eosinophils % (0.00-5.0) % Basophils % (0.0-0.4) % Absolute Granulocytes (1.4-6.9) x10^3/uL Basophils # (0-0.4) x10^3/uL D-Dimer (0.0-0.50) mg/L Sodium (137-145) mmol/L Potassium (3.5-5.1) mmol/L Chloride (98-107) mmol/L Carbon Dioxide (22-30) mmol/L Anion Gap (5-15) MEQ/L BUN (7-17) mg/dL Creatinine (0.52-1.04) mg/dL Estimated GFR ML/MIN Glucose (74-106) mg/dL Lactic Acid (0.4-2.0) Calcium (8.4-10.2) mg/dL Total Bilirubin (0.2-1.3) mg/dL AST (14-36) U/L ALT (0-35) U/L Alkaline Phosphatase (38-126) U/L Troponin I < 0.012 (0.000-0.034) ng/mL NT-Pro-B Natriuret Pep 134 (<300) pg/mL Serum Total Protein (6.3-8.2) g/dL Albumin (3.5-5.0) g/dL Monoscreen NEGATIVE (NEGATIVE) Influenza Type A Ag (NEGATIVE) Influenza Type B Ag (NEGATIVE) RSV (PCR) (NEGATIVE) SARS-CoV-2 (PCR) (NEGATIVE) Group A Strep Antibody (NEGATIVE) 03/08/23 03/08/23 03/08/23 Range/Units 12:22 13:15 13:15 WBC (4.0-10.5) x10^3/uL RBC (4.1-5.4) x10^6/uL Hgb (12.0-16.0) g/dL Hct (35-47) % MCV (78-100) fL MCH (26-32) pg MCHC (32-36) g/dL RDW (11.5-14.0) % Plt Count (150-450) x10^3/uL MPV (7.5-11.0) fL Gran % (36.0-66.0) % Immature Gran % (Auto) (0.00-0.4) % Nucleat RBC Rel Count (0.00-0.1) % Eos # (Auto) (0-0.5) x10^3/uL Immature Gran # (Auto) (0.00-0.03) x10^3u/L Absolute Lymphs (auto) (1.0-4.6) x10^3/uL Absolute Monos (auto) (0.0-1.3) x10^3/uL Absolute Nucleated RBC (0.00-0.01) x10^3u/L Lymphocytes % (24.0-44.0) % Monocytes % (0.0-12.0) % Eosinophils % (0.00-5.0) % Basophils % (0.0-0.4) % Absolute Granulocytes (1.4-6.9) x10^3/uL Basophils # (0-0.4) x10^3/uL D-Dimer 0.23 (0.0-0.50) mg/L Sodium (137-145) mmol/L Potassium (3.5-5.1) mmol/L Chloride (98-107) mmol/L Carbon Dioxide (22-30) mmol/L Anion Gap (5-15) MEQ/L BUN (7-17) mg/dL Creatinine (0.52-1.04) mg/dL Estimated GFR ML/MIN Glucose (74-106) mg/dL Lactic Acid 1.7 (0.4-2.0) Calcium (8.4-10.2) mg/dL Total Bilirubin (0.2-1.3) mg/dL AST (14-36) U/L ALT (0-35) U/L Alkaline Phosphatase (38-126) U/L Troponin I (0.000-0.034) ng/mL NT-Pro-B Natriuret Pep (<300) pg/mL Serum Total Protein (6.3-8.2) g/dL Albumin (3.5-5.0) g/dL Monoscreen (NEGATIVE) Influenza Type A Ag (NEGATIVE) Influenza Type B Ag (NEGATIVE) RSV (PCR) (NEGATIVE) SARS-CoV-2 (PCR) (NEGATIVE) Group A Strep Antibody NOT DETECTED (NEGATIVE) 03/08/23 Range/Units 16:25 WBC (4.0-10.5) x10^3/uL RBC (4.1-5.4) x10^6/uL Hgb (12.0-16.0) g/dL Hct (35-47) % MCV (78-100) fL MCH (26-32) pg MCHC (32-36) g/dL RDW (11.5-14.0) % Plt Count (150-450) x10^3/uL MPV (7.5-11.0) fL Gran % (36.0-66.0) % Immature Gran % (Auto) (0.00-0.4) % Nucleat RBC Rel Count (0.00-0.1) % Eos # (Auto) (0-0.5) x10^3/uL Immature Gran # (Auto) (0.00-0.03) x10^3u/L Absolute Lymphs (auto) (1.0-4.6) x10^3/uL Absolute Monos (auto) (0.0-1.3) x10^3/uL Absolute Nucleated RBC (0.00-0.01) x10^3u/L Lymphocytes % (24.0-44.0) % Monocytes % (0.0-12.0) % Eosinophils % (0.00-5.0) % Basophils % (0.0-0.4) % Absolute Granulocytes (1.4-6.9) x10^3/uL Basophils # (0-0.4) x10^3/uL D-Dimer (0.0-0.50) mg/L Sodium (137-145) mmol/L Potassium (3.5-5.1) mmol/L Chloride (98-107) mmol/L Carbon Dioxide (22-30) mmol/L Anion Gap (5-15) MEQ/L BUN (7-17) mg/dL Creatinine (0.52-1.04) mg/dL Estimated GFR ML/MIN Glucose (74-106) mg/dL Lactic Acid (0.4-2.0) Calcium (8.4-10.2) mg/dL Total Bilirubin (0.2-1.3) mg/dL AST (14-36) U/L ALT (0-35) U/L Alkaline Phosphatase (38-126) U/L Troponin I < 0.012 (0.000-0.034) ng/mL NT-Pro-B Natriuret Pep (<300) pg/mL Serum Total Protein (6.3-8.2) g/dL Albumin (3.5-5.0) g/dL Monoscreen (NEGATIVE) Influenza Type A Ag (NEGATIVE) Influenza Type B Ag (NEGATIVE) RSV (PCR) (NEGATIVE) SARS-CoV-2 (PCR) (NEGATIVE) Group A Strep Antibody (NEGATIVE) - Radiology Impressions Radiology Exams & Impressions: Radiology Procedures Category Date Time Status CHEST 1 VIEW (PORTABLE) Stat Exams 03/08/23 11:55 Completed CHEST WITHOUT CONTRAST [CT] Stat Exams 03/08/23 14:14 Completed - Other Procedures and Tests Respiratory Therapy 03/08/23 16:12 Oxygen Nasal Cannula 2 lpm 03/08/23 17:10 Smoking Cessation Education ONCE Assessment/Plan (1) Bronchitis Current Visit: Yes Status: Acute Assessment & Plan: Patient has cough with purulent sputum, wheezing and dyspnea She has hypoxia and is on oxygen CT and CXray shows no pneumonia Clinical picture suggests acute bronchitis Suspect she has COPD. She is a smoker Plan IV antibiotics, steroids and bronchodilators Supplemental oxygen as needed Code(s): J40 - BRONCHITIS, NOT SPECIFIED ACUTE OR CHRONIC (2) Acute respiratory failure with hypoxia Current Visit: Yes Status: Acute Assessment & Plan: Hypoxia with sats down to 86% Continue oxygen as needed Code(s): J96.01 - ACUTE RESPIRATORY FAILURE WITH HYPOXIA (3) Leukocytosis Current Visit: Yes Status: Acute Assessment & Plan: Likely due to bronchitis Will trend wbc Code(s): D72.829 - ELEVATED WHITE BLOOD CELL COUNT, UNSPECIFIED Telemedicine Encounter - Telemedicine Encounter Telemedicine Encounter: The entirety of this encounter was performed via Telemedicine after consent obtained Labs and imaging reviewed Discussed with ER provider Jacob Aranda MD [facility]
[2023-03-08] MEDS ORDERED: MOTRIN 200 MG PO PRN (17:28)
[2023-03-08] MEDS: Nicoderm CQ 21 MG TOP SCH (17:49)
[2023-03-08] MEDS: Zofran 4 MG/2 ML VIAL IV PRN (18:12)
[2023-03-08] MEDS: DUONEB 0.5-3 MG/3 ml Neb IH SCH ×2 (19:20→23:54)
[2023-03-08] MEDS: Sodium Chloride 0.9% 1000 ML 1,000 ML IV SCH (20:51)
[2023-03-08] MEDS: TYLENOL 325 MG PO PRN (22:22)
[2023-03-08] MEDS: solu-MEDROL 80 MG, Sterile H2O 10 ml 2 ML IV SCH ×2 (22:22)
[2023-03-09] MEDS: DUONEB 0.5-3 MG/3 ml Neb IH SCH ×6 (03:54→22:26)
[2023-03-09 04:20] LABS: Absolute Neutrophil Ct (ANC) 9.54 x10^3/uL (1.4-6.9); BASOPHIL % 0.2 % (0.0-0.4); Basophil (Absolute #) 0.02 x10^3/uL (0-0.4); Eosinophil (Absolute #) 0 x10^3/uL (0-0.5); Hematocrit 40.5 % (35-47); Hemoglobin 13.1 g/dL (12.0-16.0); IMMATURE GRAN # 0.17 x10^3u/L (0.00-0.03); IMMATURE GRAN % 1.5 % (0.00-0.4); Lymphocyte (Absolute #) 1.16 x10^3/uL (1.0-4.6); Lymphocytes % 10.3 % (24.0-44.0); Mean Cell Volume 86.7 fL (78-100); Mean Corpuscular Hemoglobin 28.1 pg (26-32); Mean Corpuscular Hgb Concent. 32.3 g/dL (32-36); Mean Platelet Volume 8.9 fL (7.5-11.0); Monocyte (Absolute #) 0.39 x10^3/uL (0.0-1.3); Monocytes % 3.5 % (0.0-12.0); Neutrophil % 84.5 % (36.0-66.0); Platelet Count 419 x10^3/uL (150-450); Red Blood Count 4.67 x10^6/uL (4.1-5.4); Red Cell Distribution Width 14.6 % (11.5-14.0); White Blood Count 11.3 x10^3/uL (4.0-10.5)
[2023-03-09 04:25] LABS: A-aADO2 128; ABG HEMOGLOBIN 13.6; ABG POTASSIUM 4.4 (3.5-5.1); ABG SITE RIGHT RADIAL; ALLEN TEST OK? YES; ARTERIAL BLD GAS O2 SATURATION 98.3 % (95-100); ARTERIAL BLOOD GAS BASE EXCESS 0.8 (-2.0-2.0); ARTERIAL BLOOD GAS FIO2 36 %; ARTERIAL BLOOD GAS PCO2 34 mmHg (35-45); ARTERIAL BLOOD GAS PO2 86 mmHg (75-100); ARTERIAL BLOOD GAS pH 7.46 (7.35-7.45); CARBOXYHEMOGLOBIN 5.5 % THgb (0.0-6.9); HCO3- 24.2 (22-28); HGB O2 SAT 92.2 g/dF (94-100); Methhemoglobin 0.7 % (1.4-1.5)
[2023-03-09 04:33] LABS: ALBUMIN 4.1 g/dL (3.5-5.0); ANION GAP 13.9 MEQ/L (5-15); BILIRUBIN,TOTAL 0.3 mg/dL (0.2-1.3); Calcium 9.5 mg/dL (8.4-10.2); Creatinine 1 0.46 mg/dL (0.52-1.04); EST GLOMERULAR FILTRATION RATE 113.7 ML/MIN; Potassium 4.3 mmol/L (3.5-5.1); Total Protein 7.7 g/dL (6.3-8.2)
[2023-03-09] MEDS: solu-MEDROL 80 MG, Sterile H2O 10 ml 2 ML IV SCH ×6 (05:09→21:49)
[2023-03-09] MEDS ORDERED: MOTRIN 600 MG PO PRN (07:35)
[2023-03-09] MEDS ORDERED: BABY ASPIRIN 81 MG CHEW PO SCH (10:00)
[2023-03-09] MEDS: xanAX 0.5 MG PO PRN ×2 (10:20→21:49)
[2023-03-09] MEDS: ECOTRIN 81 MG PO SCH (10:21)
[2023-03-09] MEDS: ROCEPHIN 1 Gm-D5w 50 ml Bag** 1 G/50 ML IVPB IV SCH (10:21)
[2023-03-09] MEDS: TYLENOL 325 MG PO PRN (16:30)
[2023-03-09] MEDS: Sodium Chloride 0.9% 1000 ML 1,000 ML IV SCH (17:10)
--- NOTE | 2023-03-09 18:23 | PCM.NOTE ---
Date and Time: 03/09/231816 Subjective Assessment: Patient reports feeling better with decreased dypsnea. She is still wheezing and has moderate cough. She has some pleuritic chest pain that causes nausea. Chest pain is improved when sitting up. Cough is dry. No fever. No abdominal pain. No nausea or vomiting. - Review of Systems Constitutional: No Symptoms, No Fever, No Chills Eyes: No Symptoms Ears, Nose, & Throat: No Symptoms Respiratory: Cough, Short Of Breath, Wheezing Cardiac: Chest Pain, Orthopnea, No Edema Abdominal/Gastrointestinal: No Symptoms, No Abdominal Pain, No Nausea, No Vomiting Genitourinary Symptoms: No Symptoms, No Dysuria Musculoskeletal: No Symptoms Skin: No Symptoms Neurological: No Symptoms Psychological: No Symptoms Endocrine: No Symptoms Hematologic/Lymphatic: No Symptoms Immunological/Allergic: No Symptoms All Other Systems: Reviewed and Negative Objective Exam General Appearance: moderate distress Neurologic Exam: alert, oriented x 3, cooperative Skin Exam: normal color, warm, dry Eye Exam: PERRL, EOMI, eyes nml inspection Ears, Nose, Throat Exam: normal ENT inspection Neck Exam: normal inspection, non-tender, supple Respiratory Exam: diminished breath sounds, accessory muscle use, crackles/rales, wheezing Cardiovascular Exam: regular rate/rhythm, normal heart sounds, normal peripheral pulses Gastrointestinal/Abdomen Exam: soft, normal bowel sounds, No tenderness, No mass Extremity Exam: normal inspection Back Exam: normal inspection Pelvic Exam: deferred Rectal Exam: deferred OBJECTIVE DATA Vital Signs: Vital Signs - 24 hr Temp Pulse Resp BP BP Pulse Ox 03/09/23 16:00 97.5 F 102 H 20 126/57 92 L 03/09/23 15:00 88 18 94 L 03/09/23 13:00 97.5 F 103 H 20 123/57 92 L 03/09/23 10:08 104 H 26 H 100 03/09/23 09:40 108 H 27 H 187/79 121/73 95 03/09/23 07:14 96 H 16 97 03/09/23 07:04 96.8 F 85 27 H 121/73 96 03/09/23 04:00 97.1 F 92 H 20 140/67 97 03/09/23 03:54 91 H 22 92 L 03/08/23 23:54 87 22 92 L 03/08/23 23:30 97.1 F 92 H 22 138/68 94 L 03/08/23 19:21 92 H 27 H 93 L 03/08/23 18:46 97.7 F 93 H 20 117/69 94 L Pain Assessment - Last Documented Pain Intensity 3 Pain Scale Used 0-10 Pain Scale Intake and Output: Intake & Output 03/07/23 03/08/23 03/09/23 03/10/23 11:59 11:59 11:59 11:59 Intake Total 1762 840 Balance 1762 840 Weight 76.204 kg 74.8 kg Lab Results: Lab Results-Last 24 Hours 03/08/23 03/09/23 03/09/23 Range/Units 20:05 04:00 04:00 WBC 11.3 H (4.0-10.5) x10^3/uL RBC 4.67 (4.1-5.4) x10^6/uL Hgb 13.1 (12.0-16.0) g/dL Hct 40.5 (35-47) % MCV 86.7 (78-100) fL MCH 28.1 (26-32) pg MCHC 32.3 (32-36) g/dL RDW 14.6 H (11.5-14.0) % Plt Count 419 (150-450) x10^3/uL MPV 8.9 (7.5-11.0) fL Gran % 84.5 H (36.0-66.0) % Immature Gran % (Auto) 1.5 H (0.00-0.4) % Nucleat RBC Rel Count 0.0 (0.00-0.1) % Eos # (Auto) 0 (0-0.5) x10^3/uL Immature Gran # (Auto) 0.17 H (0.00-0.03) x10^3u/L Absolute Lymphs (auto) 1.16 (1.0-4.6) x10^3/uL Absolute Monos (auto) 0.39 (0.0-1.3) x10^3/uL Absolute Nucleated RBC 0.00 (0.00-0.01) x10^3u/L Lymphocytes % 10.3 L (24.0-44.0) % Monocytes % 3.5 (0.0-12.0) % Eosinophils % 0.0 (0.00-5.0) % Basophils % 0.2 (0.0-0.4) % Absolute Granulocytes 9.54 H (1.4-6.9) x10^3/uL Basophils # 0.02 (0-0.4) x10^3/uL Puncture Site pCO2 (35-45) mmHg pO2 (75-100) mmHg Base Excess (-2.0-2.0) O2 Saturation (94-100) g/dF ABG pH (7.35-7.45) ABG HCO3 (22-28) ABG O2 Sat (Measured) (95-100) % Albino Test A-a Gradient a/A Ratio Hemoglobin Carboxyhemoglobin (0.0-6.9) % THgb Methemoglobin (1.4-1.5) % Temperature C POC O2 Flow Rate % Sodium 139 (137-145) mmol/L Potassium 4.3 (3.5-5.1) mmol/L Chloride 105 (98-107) mmol/L Carbon Dioxide 24 (22-30) mmol/L Anion Gap 13.9 (5-15) MEQ/L BUN 11 (7-17) mg/dL Creatinine 0.46 L (0.52-1.04) mg/dL Estimated GFR 113.7 ML/MIN Glucose 175 H (74-106) mg/dL POC Glucometer (74 to 106) mg/dL Calcium 9.5 (8.4-10.2) mg/dL Total Bilirubin 0.30 (0.2-1.3) mg/dL AST 24 (14-36) U/L ALT 20 (0-35) U/L Alkaline Phosphatase 100 (38-126) U/L Troponin I < 0.012 (0.000-0.034) ng/mL Serum Total Protein 7.7 (6.3-8.2) g/dL Albumin 4.1 (3.5-5.0) g/dL 03/09/23 03/09/23 03/09/23 Range/Units 04:20 11:07 16:08 WBC (4.0-10.5) x10^3/uL RBC (4.1-5.4) x10^6/uL Hgb (12.0-16.0) g/dL Hct (35-47) % MCV (78-100) fL MCH (26-32) pg MCHC (32-36) g/dL RDW (11.5-14.0) % Plt Count (150-450) x10^3/uL MPV (7.5-11.0) fL Gran % (36.0-66.0) % Immature Gran % (Auto) (0.00-0.4) % Nucleat RBC Rel Count (0.00-0.1) % Eos # (Auto) (0-0.5) x10^3/uL Immature Gran # (Auto) (0.00-0.03) x10^3u/L Absolute Lymphs (auto) (1.0-4.6) x10^3/uL Absolute Monos (auto) (0.0-1.3) x10^3/uL Absolute Nucleated RBC (0.00-0.01) x10^3u/L Lymphocytes % (24.0-44.0) % Monocytes % (0.0-12.0) % Eosinophils % (0.00-5.0) % Basophils % (0.0-0.4) % Absolute Granulocytes (1.4-6.9) x10^3/uL Basophils # (0-0.4) x10^3/uL Puncture Site RIGHT RADIAL pCO2 34 L (35-45) mmHg pO2 86 (75-100) mmHg Base Excess 0.8 (-2.0-2.0) O2 Saturation 92.2 L (94-100) g/dF ABG pH 7.46 H (7.35-7.45) ABG HCO3 24.2 (22-28) ABG O2 Sat (Measured) 98.3 (95-100) % Albino Test YES A-a Gradient 128 a/A Ratio 0.40 Hemoglobin 13.6 Carboxyhemoglobin 5.5 (0.0-6.9) % THgb Methemoglobin 0.7 L (1.4-1.5) % Temperature 37.0 C POC O2 Flow Rate 36 % Sodium (137-145) mmol/L Potassium 4.4 (3.5-5.1) mmol/L Chloride (98-107) mmol/L Carbon Dioxide (22-30) mmol/L Anion Gap (5-15) MEQ/L BUN (7-17) mg/dL Creatinine (0.52-1.04) mg/dL Estimated GFR ML/MIN Glucose (74-106) mg/dL POC Glucometer 207 H (74 to 106) mg/dL Calcium (8.4-10.2) mg/dL Total Bilirubin (0.2-1.3) mg/dL AST (14-36) U/L ALT (0-35) U/L Alkaline Phosphatase (38-126) U/L Troponin I < 0.012 (0.000-0.034) ng/mL Serum Total Protein (6.3-8.2) g/dL Albumin (3.5-5.0) g/dL Radiology Exams: Radiology Procedures Category Date Time Status CHEST 1 VIEW (PORTABLE) Stat Exams 03/08/23 11:55 Completed CHEST WITHOUT CONTRAST [CT] Stat Exams 03/08/23 14:14 Completed Assessment/Plan (1) Bronchitis Current Visit: Yes Status: Acute Assessment & Plan: Patient has continued cough with wheezing and dyspnea She continues to require supplemental oxygen CT and CXray shows no pneumonia Clinical picture suggests acute bronchitis Suspect she has COPD but has had no pulmonary function testing. She is a smoker Continue IV antibiotics, steroids and bronchodilators Supplemental oxygen as needed Code(s): J40 - BRONCHITIS, NOT SPECIFIED ACUTE OR CHRONIC (2) Acute respiratory failure with hypoxia Current Visit: Yes Status: Acute Assessment & Plan: Continue supplemental oxygen as needed Currently on 3L She is not on oxygen at home Code(s): J96.01 - ACUTE RESPIRATORY FAILURE WITH HYPOXIA Telemedicine Encounter - Telemedicine Encounter Telemedicine Encounter: The entirety of this encounter was performed via Telemedicine after consent obtained. Labs and imaging reviewed.
[2023-03-09] MEDS: Nicoderm CQ 21 MG TOP SCH (18:31)
[2023-03-10] MEDS: TYLENOL 325 MG PO PRN (02:25)
[2023-03-10] MEDS: DUONEB 0.5-3 MG/3 ml Neb IH SCH ×6 (02:37→23:17)
[2023-03-10] MEDS: solu-MEDROL 80 MG, Sterile H2O 10 ml 2 ML IV SCH ×6 (05:01→21:21)
[2023-03-10] MEDS: Zofran 4 MG/2 ML VIAL IV PRN (08:02)
[2023-03-10] MEDS: ECOTRIN 81 MG PO SCH (09:55)
[2023-03-10] MEDS: Mucinex 600MG ER Tabs PO SCH ×2 (09:55→21:21)
[2023-03-10] MEDS: xanAX 0.5 MG PO PRN ×2 (09:55→23:20)
[2023-03-10] MEDS: ROCEPHIN 1 Gm-D5w 50 ml Bag** 1 G/50 ML IVPB IV SCH (09:56)
[2023-03-10 10:43] LABS: Hematocrit 39.8 % (35-47); Hemoglobin 12.2 g/dL (12.0-16.0); Mean Cell Volume 89.4 fL (78-100); Mean Corpuscular Hemoglobin 27.4 pg (26-32); Mean Corpuscular Hgb Concent. 30.7 g/dL (32-36); Mean Platelet Volume 8.9 fL (7.5-11.0); Platelet Count 417 x10^3/uL (150-450); Red Blood Count 4.45 x10^6/uL (4.1-5.4); Red Cell Distribution Width 15.5 % (11.5-14.0)
[2023-03-10 10:50] LABS: White Blood Count 26.8 x10^3/uL (4.0-10.5)
[2023-03-10 10:56] LABS: ANION GAP 14.9 MEQ/L (5-15); Calcium 9.5 mg/dL (8.4-10.2); Creatinine 1 0.57 mg/dL (0.52-1.04); EST GLOMERULAR FILTRATION RATE 107.9 ML/MIN; Potassium 4.6 mmol/L (3.5-5.1)
[2023-03-10 11:12] LABS: ANISOCYTOSIS 1+; Lymphocytes 8 % (24-44); Monocyte 4 % (0.0-12.0); Neutrophils 88 % (36.0-66.0); Platelet Estimate NORMAL (NORMAL); Total Cells Counted 100
[2023-03-10 11:13] LABS: Toxic Granulation 1+
[2023-03-10] MEDS: Sodium Chloride 0.9% 1000 ML 1,000 ML IV SCH (13:20)
--- NOTE | 2023-03-10 16:24 | PCM.NOTE ---
Date and Time: 03/10/231618 - Review of Systems Constitutional: No Symptoms, No Fever, No Chills Eyes: No Symptoms Ears, Nose, & Throat: No Symptoms Respiratory: Cough, Orthopnea, Short Of Breath, Wheezing Cardiac: No Symptoms, No Chest Pain, No Edema Abdominal/Gastrointestinal: No Symptoms, Nausea, No Abdominal Pain, No Vomiting Genitourinary Symptoms: No Symptoms, No Dysuria, No Frequency Musculoskeletal: No Symptoms Skin: No Symptoms Neurological: No Symptoms Psychological: No Symptoms Endocrine: No Symptoms Hematologic/Lymphatic: No Symptoms Immunological/Allergic: No Symptoms All Other Systems: Reviewed and Negative Objective Exam General Appearance: moderate distress Neurologic Exam: alert, oriented x 3, cooperative, 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 Skin Exam: normal color, warm, dry Eye Exam: PERRL, EOMI, eyes nml inspection Ears, Nose, Throat Exam: normal ENT inspection Neck Exam: normal inspection, non-tender, supple Lymphatic Exam: No adenopathy Respiratory Exam: accessory muscle use, rhonchi, wheezing Cardiovascular Exam: regular rate/rhythm, normal heart sounds, normal peripheral pulses Gastrointestinal/Abdomen Exam: soft, normal bowel sounds, No tenderness, No mass Extremity Exam: normal inspection Back Exam: normal inspection Pelvic Exam: deferred Rectal Exam: deferred OBJECTIVE DATA Vital Signs: Vital Signs - 24 hr Temp Pulse Resp BP Pulse Ox 03/10/23 16:00 97.3 F 82 28 H 124/69 94 L 03/10/23 14:52 92 L 03/10/23 14:50 84 18 87 L 03/10/23 11:51 97.8 F 93 H 20 141/75 94 L 03/10/23 11:34 92 H 18 99 03/10/23 07:38 96.9 F 86 21 133/66 95 03/10/23 07:00 91 H 18 97 03/10/23 04:00 97.6 F 92 H 26 H 120/68 95 03/10/23 02:39 81 20 94 L 03/09/23 23:32 97.3 F 91 H 30 H 115/59 91 L 03/09/23 22:30 82 22 95 03/09/23 19:36 97.8 F 96 H 22 123/58 98 03/09/23 18:50 88 20 93 L Pain Assessment - Last Documented Pain Intensity 0 Pain Scale Used 0-10 Pain Scale Intake and Output: Intake & Output 03/08/23 03/09/23 03/10/23 03/11/23 11:59 11:59 11:59 11:59 Intake Total 1762 3423 822 Balance 1762 3423 822 Weight 76.204 kg 74.8 kg Lab Results: Lab Results-Last 24 Hours 03/10/23 03/10/23 Range/Units 10:35 10:35 WBC 26.8 H* (4.0-10.5) x10^3/uL RBC 4.45 (4.1-5.4) x10^6/uL Hgb 12.2 (12.0-16.0) g/dL Hct 39.8 (35-47) % MCV 89.4 (78-100) fL MCH 27.4 (26-32) pg MCHC 30.7 L (32-36) g/dL RDW 15.5 H (11.5-14.0) % Plt Count 417 (150-450) x10^3/uL MPV 8.9 (7.5-11.0) fL Segmented Neutrophils 88 H (36.0-66.0) % Lymphocytes (Manual) 8 L (24-44) % Monocytes (Manual) 4 (0.0-12.0) % Toxic Granulation 1+ Platelet Estimate NORMAL (NORMAL) RBC Morphology ABNORMAL Anisocytosis 1+ Smear Path Review Pending Sodium 140 (137-145) mmol/L Potassium 4.6 (3.5-5.1) mmol/L Chloride 103 (98-107) mmol/L Carbon Dioxide 26 (22-30) mmol/L Anion Gap 14.9 (5-15) MEQ/L BUN 13 (7-17) mg/dL Creatinine 0.57 (0.52-1.04) mg/dL Estimated GFR 107.9 ML/MIN Glucose 250 H (74-106) mg/dL Calcium 9.5 (8.4-10.2) mg/dL Multi-Disciplinary Progress Notes: Multi-Disciplinary Progress Notes 03/10/23 10:48 Case Management Note by Megan Jay Addendum entered by Megan Jay 03/10/23 15:38: NURSE SHOULD CALL PHARMACY TO CHECK COST OF RX PRIOR TO SENDING PATIENT HOME TO BE SURE THEY ARE COST EFFECTIVE FOR HER Original Note: S/W PATIENT- SHE CONTINUES TO DENY ANY NEW NEEDS AT TIME OF DC. SHE IS A SELF PAY PATIENT SO COST EFFECTIVE MEDICATIONS WOULD BE BEST AT [place]. SHE WAS GIVEN RX DISCOUNT CARDS TO USE AT PHARMACY. IF PATIENT NEEDS O2 AT [place]- SHE IS OKAY TO USE [facility]. SHE WAS NOTIFIED THAT [facility] IS GREAT ABOUT WORKING WITH PATIENT'S T HAT ARE SELF PAY. SHE VERIFIED UNDERSTANDING. NO DENIED ANY OTHER NEW NEEDS. OXYGEN FORM PLACED ON CHART FOR WEEKEND USE IF NEEDED. Initialized on 03/10/23 10:48 - END OF NOTE Assessment/Plan (1) Bronchitis Current Visit: Yes Status: Acute Assessment & Plan: Continued cough with severe wheezing and dyspnea Continue supplemental oxygen CT and CXray shows no pneumonia Clinical picture suggests acute bronchitis with acute bronchospasm Suspect she has COPD but has had no pulmonary function testing. She is a smoker Continue IV antibiotics, steroids and bronchodilators Patient to be seen by pulmonary since she is not improving with current therapy. Added Mucinex as she is having problems expectorating. Added Trazodone to help with sleep. Code(s): J40 - BRONCHITIS, NOT SPECIFIED ACUTE OR CHRONIC (2) Acute respiratory failure with hypoxia Current Visit: Yes Status: Acute Assessment & Plan: Continue supplemental oxygen as needed Code(s): J96.01 - ACUTE RESPIRATORY FAILURE WITH HYPOXIA Telemedicine Encounter - Telemedicine Encounter Telemedicine Encounter: The entirety of this encounter was performed via Telemedicine after consent obtained. Labs and imaging reviewed Discussed with pulmonary Complex medical decision making Jacob Aranda MD [facility]
[2023-03-10] MEDS: Nicoderm CQ 21 MG TOP SCH (17:20)
[2023-03-10] MEDS: DESYREL 50 MG PO SCH (21:21)
[2023-03-11] MEDS: DUONEB 0.5-3 MG/3 ml Neb IH SCH ×6 (03:18→23:16)
[2023-03-11] MEDS: solu-MEDROL 80 MG, Sterile H2O 10 ml 2 ML IV SCH ×6 (05:24→21:23)
[2023-03-11 06:07] LABS: Hematocrit 36.4 % (35-47); Hemoglobin 11.2 g/dL (12.0-16.0); Mean Corpuscular Hemoglobin 27.4 pg (26-32); Mean Corpuscular Hgb Concent. 30.8 g/dL (32-36); Mean Platelet Volume 9.1 fL (7.5-11.0); Platelet Count 414 x10^3/uL (150-450); Red Blood Count 4.09 x10^6/uL (4.1-5.4); Red Cell Distribution Width 15.4 % (11.5-14.0); White Blood Count 22.5 x10^3/uL (4.0-10.5)
[2023-03-11 06:25] LABS: ANION GAP 9.8 MEQ/L (5-15); Calcium 8.9 mg/dL (8.4-10.2); Creatinine 1 0.47 mg/dL (0.52-1.04); EST GLOMERULAR FILTRATION RATE 113.1 ML/MIN; Potassium 4.6 mmol/L (3.5-5.1)
--- NOTE | 2023-03-11 07:32 | XRAY ---
Indication: Respiratory failure. Comparison: March 08, 2023 Portable chest unchanged again demonstrating CT proven scattered pulmonary, mediastinal, and hilar calcified granulomas. Heart not enlarged. No new/acute findings.
[2023-03-11] MEDS: Sodium Chloride 0.9% 1000 ML 1,000 ML IV SCH (07:34)
[2023-03-11] MEDS: Mucinex 600MG ER Tabs PO SCH ×2 (09:28→21:23)
[2023-03-11] MEDS: ROCEPHIN 1 Gm-D5w 50 ml Bag** 1 G/50 ML IVPB IV SCH (09:28)
[2023-03-11] MEDS: ECOTRIN 81 MG PO SCH (09:28)
--- NOTE | 2023-03-11 10:17 | PCM.DS ---
Discharge Summary Date of Admission: 03/08/23 17:29 Date of Discharge: 03/11/2024 Admitting Physician: LAWANDA BLANK MD Consults: Consults on Case 03/10/23 09:15 Consult Pulmonology ROUTINE Primary Care Provider: NO FAMILY DOCTOR Allergies Allergies morphine Allergy (Verified 03/08/23 11:36) IVP DYE Allergy (Uncoded 03/08/23 11:36) Hospital Summary - Hospital Course Hospital Course: This patient is a smoker. She has no prior history of COPD but based on clinical picture, likely has COPD. She came in with cough and dyspnea. She had acute respiratory failure with hypoxia. She was treated with supplemental oxygen. She was given IV steroids, antibiotics and bronchodilators. Symptoms improved and she is asking to go home. She still has dyspnea and requires oxygen. We will arrange home oxygen. The patient to be dismissed on steroids and bronchodilators. Patient is dismissed on 03/11/24. - Vitals & Intake/Output Vital Signs: Vital Signs Temperature 96.8 F 03/11/23 07:00 Pulse Rate 77 03/11/23 07:47 Respiratory Rate 16 03/11/23 07:47 Blood Pressure 139/71 03/11/23 07:00 O2 Sat by Pulse Oximetry 92 L 03/11/23 07:47 Intake & Output: Intake & Output 03/08/23 03/09/23 03/10/23 03/11/23 11:59 11:59 11:59 11:59 Intake Total 1762 3423 1332 Balance 1762 3423 1332 Weight 76.204 kg 74.8 kg - Lab Result Diagrams: 03/11/23 05:40 03/11/23 05:40 Lab Results-Last 24 Hrs: Lab Results-Last 24 Hours 03/10/23 03/10/23 03/11/23 Range/Units 10:35 10:35 05:40 WBC 26.8 H* 22.5 H (4.0-10.5) x10^3/uL RBC 4.45 4.09 L (4.1-5.4) x10^6/uL Hgb 12.2 11.2 L (12.0-16.0) g/dL Hct 39.8 36.4 (35-47) % MCV 89.4 89.0 (78-100) fL MCH 27.4 27.4 (26-32) pg MCHC 30.7 L 30.8 L (32-36) g/dL RDW 15.5 H 15.4 H (11.5-14.0) % Plt Count 417 414 (150-450) x10^3/uL MPV 8.9 9.1 (7.5-11.0) fL Segmented Neutrophils 88 H (36.0-66.0) % Lymphocytes (Manual) 8 L (24-44) % Monocytes (Manual) 4 (0.0-12.0) % Toxic Granulation 1+ Platelet Estimate NORMAL (NORMAL) RBC Morphology ABNORMAL Anisocytosis 1+ Smear Path Review Pending Sodium 140 (137-145) mmol/L Potassium 4.6 (3.5-5.1) mmol/L Chloride 103 (98-107) mmol/L Carbon Dioxide 26 (22-30) mmol/L Anion Gap 14.9 (5-15) MEQ/L BUN 13 (7-17) mg/dL Creatinine 0.57 (0.52-1.04) mg/dL Estimated GFR 107.9 ML/MIN Glucose 250 H (74-106) mg/dL Calcium 9.5 (8.4-10.2) mg/dL 03/11/ Range/Units 05:40 WBC (4.0-10.5) x10^3/uL RBC (4.1-5.4) x10^6/uL Hgb (12.0-16.0) g/dL Hct (35-47) % MCV (78-100) fL MCH (26-32) pg MCHC (32-36) g/dL RDW (11.5-14.0) % Plt Count (150-450) x10^3/uL MPV (7.5-11.0) fL Segmented Neutrophils (36.0-66.0) % Lymphocytes (Manual) (24-44) % Monocytes (Manual) (0.0-12.0) % Toxic Granulation Platelet Estimate (NORMAL) RBC Morphology Anisocytosis Smear Path Review Sodium 141 (137-145) mmol/L Potassium 4.6 (3.5-5.1) mmol/L Chloride 104 (98-107) mmol/L Carbon Dioxide 31 H (22-30) mmol/L Anion Gap 9.8 (5-15) MEQ/L BUN 16 (7-17) mg/dL Creatinine 0.47 L (0.52-1.04) mg/dL Estimated GFR 113.1 ML/MIN Glucose 169 H (74-106) mg/dL Calcium 8.9 (8.4-10.2) mg/dL Micro Results-Entire Visit: Microbiology 03/08/23 12:20 Blood Culture - Preliminary Blood 03/08/23 12:13 Blood Culture - Preliminary Blood - Radiology Exams Ordered Rad Exams-Entire Visit: Radiology Procedures Category Date Time Status CHEST 1 VIEW (PORTABLE) Routine Exams 03/11/23 07:00 Completed - Procedures and Test Procedures and Tests throughout Hospitalization: Therapy Orders & Screens 03/08/23 16:12 Oxygen Nasal Cannula 2 lpm Comment: Respiratory Therapy Consult ONCE Comment: Reason For Exam: 03/08/23 17:10 Smoking Cessation Education ONCE Comment: Diagnosis: SOB, Hypoxia, Leukocytosis Smoking Status: Current every day smoker How long have you smoked: 45 years Have you smoked in the past 12 months: Yes Approximately how many cigarettes per day: 1 pack Do you dip or chew tobacco: No 03/09/23 09:47 EKG ROUTINE Comment: Diagnosis: SOB, Hypoxia, Leukocytosis 03/09/23 23:15 Flutter Therapy UD Comment: Diagnosis: SOB, Hypoxia, Leukocytosis Discharge Exam General Appearance: no apparent distress, mild distress Neurologic Exam: alert, oriented x 3, cooperative Eye Exam: PERRL, EOMI, eyes nml inspection Ears, Nose, Throat Exam: normal ENT inspection Neck Exam: normal inspection, non-tender, supple Respiratory Exam: wheezing Cardiovascular Exam: regular rate/rhythm, normal heart sounds, normal peripheral pulses Gastrointestinal/Abdomen Exam: soft, normal bowel sounds, No tenderness, No mass Pelvic Exam: deferred Rectal Exam: deferred Back Exam: normal inspection Extremity Exam: normal inspection Skin Exam: normal color Lymphatic Exam: No adenopathy Final Diagnosis/Problem List - Final Discharge Diagnosis/Problem (1) Bronchitis Current Visit: Yes Status: Acute Assessment & Plan: Patient will be dismissed with oxygen, steroids and bronchodilators Recommend follow up with PCP next week No work for 10 days. Code(s): J40 - BRONCHITIS, NOT SPECIFIED ACUTE OR CHRONIC (2) Acute respiratory failure with hypoxia Current Visit: Yes Status: Acute Assessment & Plan: Dismiss with home oxygen Code(s): J96.01 - ACUTE RESPIRATORY FAILURE WITH HYPOXIA Telemedicine Encounter - Telemedicine Encounter Telemedicine Encounter: The entirety of this encounter was performed via Telemedicine" - Discharge Disposition: Home, Self-Care Condition: Good Prescriptions: New Albuterol/Ipratropium 3ml Neb* [DUONEB 0.5-3 MG/3 ml Neb] 3 ml IH Q4HRT 30 Days Guaifenesin 600 mg ER [Mucinex 600MG ER Tabs] 600 mg PO BID 10 Days tablet Nicotine 21 mg [Nicoderm CQ 21 MG] 21 mg TOP Q24H 30 Days patch Continue Aspirin 81 gm Chew [Baby Aspirin 81 mg Chew] 81 mg PO DAILY Ibuprofen 200 mg [Motrin 200 mg] 600 mg PO DAILY PRN PRN PRN Reason: Pain Instructions: Acute bronchitis, Oxygen Therapy, Adult (DC), Quitting smoking Additional Instructions: [facility] WILL DELIVER YOUR HOME OXYGEN. YOU CAN CALL THEM AT [phone] ANY QUESTIONS. YOU WILL NEED TO WEAR YOUR OXYGEN AT 2L AT HOME AT ALL TIMES. Follow up with: CAROLINE YEE [ACTIVE STAFF] - 03/25/23 11:00 am Forms: Work/School Release Form
--- NOTE | 2023-03-11 10:24 | PCM.NOTE ---
Date and Time: 03/11/23 1021 Subjective Assessment: Patient has decided not to go home. She remains short of air with cough. She complains of weakness. No new complaints. - Review of Systems Constitutional: No Symptoms Ears, Nose, & Throat: No Symptoms Respiratory: Cough, Short Of Breath, Wheezing Cardiac: No Symptoms Abdominal/Gastrointestinal: No Symptoms Genitourinary Symptoms: No Symptoms Skin: No Symptoms Neurological: No Symptoms Psychological: No Symptoms Endocrine: No Symptoms Hematologic/Lymphatic: No Symptoms Immunological/Allergic: No Symptoms All Other Systems: Reviewed and Negative Objective Exam General Appearance: mild distress Neurologic Exam: alert, oriented x 3, cooperative Skin Exam: normal color, warm, dry Eye Exam: PERRL, EOMI, eyes nml inspection Ears, Nose, Throat Exam: normal ENT inspection Neck Exam: normal inspection Respiratory Exam: respiratory distress, wheezing Cardiovascular Exam: regular rate/rhythm, normal heart sounds, normal peripheral pulses, capillary refill >3 sec Gastrointestinal/Abdomen Exam: normal bowel sounds, No tenderness, No mass Extremity Exam: normal inspection Back Exam: normal inspection Pelvic Exam: deferred Rectal Exam: deferred OBJECTIVE DATA Vital Signs: Vital Signs - 24 hr Temp Pulse Resp BP Pulse Ox 03/11/23 07:47 77 16 92 L 03/11/23 07:00 96.8 F 84 23 139/71 93 L 03/11/23 03:18 72 20 92 L 03/11/23 03:00 96.9 F 92 H 24 134/69 95 03/10/23 23:48 79.3 F 67 23 160/87 94 L 03/10/23 23:17 77 20 93 L 03/10/23 19:08 97.7 F 79 23 130/65 95 03/10/23 19:01 84 20 94 L 03/10/23 16:00 97.3 F 82 28 H 124/69 94 L 03/10/23 14:52 92 L 03/10/23 14:50 84 18 87 L 03/10/23 11:51 97.8 F 93 H 20 141/75 94 L 03/10/23 11:34 92 H 18 99 Pain Assessment - Last Documented Pain Intensity 0 Pain Scale Used 0-10 Pain Scale Intake and Output: Intake & Output 03/08/23 03/09/23 03/10/23 03/11/23 11:59 11:59 11:59 11:59 Intake Total 1762 3423 1332 Balance 1762 3423 1332 Weight 76.204 kg 74.8 kg Lab Results: Lab Results-Last 24 Hours 03/10/23 03/10/23 03/11/23 Range/Units 10:35 10:35 05:40 WBC 26.8 H* 22.5 H (4.0-10.5) x10^3/uL RBC 4.45 4.09 L (4.1-5.4) x10^6/uL Hgb 12.2 11.2 L (12.0-16.0) g/dL Hct 39.8 36.4 (35-47) % MCV 89.4 89.0 (78-100) fL MCH 27.4 27.4 (26-32) pg MCHC 30.7 L 30.8 L (32-36) g/dL RDW 15.5 H 15.4 H (11.5-14.0) % Plt Count 417 414 (150-450) x10^3/uL MPV 8.9 9.1 (7.5-11.0) fL Segmented Neutrophils 88 H (36.0-66.0) % Lymphocytes (Manual) 8 L (24-44) % Monocytes (Manual) 4 (0.0-12.0) % Toxic Granulation 1+ Platelet Estimate NORMAL (NORMAL) RBC Morphology ABNORMAL Anisocytosis 1+ Smear Path Review Pending Sodium 140 (137-145) mmol/L Potassium 4.6 (3.5-5.1) mmol/L Chloride 103 (98-107) mmol/L Carbon Dioxide 26 (22-30) mmol/L Anion Gap 14.9 (5-15) MEQ/L BUN 13 (7-17) mg/dL Creatinine 0.57 (0.52-1.04) mg/dL Estimated GFR 107.9 ML/MIN Glucose 250 H (74-106) mg/dL Calcium 9.5 (8.4-10.2) mg/dL 03/11/23 Range/Units 05:40 WBC (4.0-10.5) x10^3/uL RBC (4.1-5.4) x10^6/uL Hgb (12.0-16.0) g/dL Hct (35-47) % MCV (78-100) fL MCH (26-32) pg MCHC (32-36) g/dL RDW (11.5-14.0) % Plt Count (150-450) x10^3/uL MPV (7.5-11.0) fL Segmented Neutrophils (36.0-66.0) % Lymphocytes (Manual) (24-44) % Monocytes (Manual) (0.0-12.0) % Toxic Granulation Platelet Estimate (NORMAL) RBC Morphology Anisocytosis Smear Path Review Sodium 141 (137-145) mmol/L Potassium 4.6 (3.5-5.1) mmol/L Chloride 104 (98-107) mmol/L Carbon Dioxide 31 H (22-30) mmol/L Anion Gap 9.8 (5-15) MEQ/L BUN 16 (7-17) mg/dL Creatinine 0.47 L (0.52-1.04) mg/dL Estimated GFR 113.1 ML/MIN Glucose 169 H (74-106) mg/dL Calcium 8.9 (8.4-10.2) mg/dL Radiology Exams: Radiology Procedures Category Date Time Status CHEST 1 VIEW (PORTABLE) Routine Exams 03/11/23 07:00 Completed Multi-Disciplinary Progress Notes: Multi-Disciplinary Progress Notes 03/11/23 03:22 Respiratory Note by Rachel Pina Upon arrival to bedside for scheduled neb tx, pt was found asleep on room air. SpO2 was 80-81%. Patient was placed back on 2L nasal cannula and SpO2 quickly came up to 92%. RN notified. Initialized on 03/11/23 03:22 - END OF NOTE 03/10/23 14:50 (created 03/10/23 17:41) Respiratory Note by Gill Doherty O2 sat on RA at rest is 87%. Placed patient on 2lpm per NC and O2 sat increased to 93% on 2lpm per NC at rest. Initialized on 03/10/23 17:41 - END OF NOTE 03/10/23 10:48 Case Management Note by Megan Jay Addendum entered by Megan Jay 03/10/23 15:38: NURSE SHOULD CALL PHARMACY TO CHECK COST OF RX PRIOR TO SENDING PATIENT HOME TO BE SURE THEY ARE COST EFFECTIVE FOR HER Original Note: S/W PATIENT- SHE CONTINUES TO DENY ANY NEW NEEDS AT TIME OF DC. SHE IS A SELF PAY PATIENT SO COST EFFECTIVE MEDICATIONS WOULD BE BEST AT [place]. SHE WAS GIVEN RX DISCOUNT CARDS TO USE AT PHARMACY. IF PATIENT NEEDS O2 AT [place]- SHE IS OKAY TO USE [facility]. SHE WAS NOTIFIED THAT [facility] IS GREAT ABOUT WORKING WITH PATIENT'S THAT ARE SELF PAY. SHE VERIFIED UNDERSTANDING. NO DENIED ANY OTHER NEW NEEDS. OXYGEN FORM PLACED ON CHART FOR WEEKEND USE IF NEEDED. Initialized on 03/10/23 10:48 - END OF NOTE Assessment/Plan (1) Bronchitis Current Visit: Yes Status: Acute Assessment & Plan: Patient planned to go home but symptoms worsened. Will defer discharge Continue steroids, antibiotics and bronchodilators. She continues to require oxygen. Code(s): J40 - BRONCHITIS, NOT SPECIFIED ACUTE OR CHRONIC (2) Acute respiratory failure with hypoxia Current Visit: Yes Status: Acute Assessment & Plan: Continue O2 as needed Code(s): J96.01 - ACUTE RESPIRATORY FAILURE WITH HYPOXIA Telemedicine Encounter - Telemedicine Encounter Telemedicine Encounter: The entirety of this encounter was performed via Telemedicine after consent obtained. Labs and imaging reviewed Jacob Aranda MD Access [facility]
[2023-03-11] MEDS: TYLENOL 325 MG PO PRN (11:41)
[2023-03-11] MEDS: xanAX 0.5 MG PO PRN ×2 (13:00→23:12)
[2023-03-11] MEDS: Nicoderm CQ 21 MG TOP SCH (17:51)
[2023-03-11] MEDS: DESYREL 50 MG PO SCH (21:23)
[2023-03-12] MEDS: DUONEB 0.5-3 MG/3 ml Neb IH SCH ×4 (02:58→14:42)
[2023-03-12] MEDS: Sodium Chloride 0.9% 1000 ML 1,000 ML IV SCH (04:19)
[2023-03-12] MEDS: solu-MEDROL 80 MG, Sterile H2O 10 ml 2 ML IV SCH ×4 (05:43→14:34)
[2023-03-12 07:19] VITALS: TEMP 97.3
[2023-03-12] MEDS: Mucinex 600MG ER Tabs PO SCH (09:43)
[2023-03-12] MEDS: ECOTRIN 81 MG PO SCH (09:43)
[2023-03-12] MEDS: ROCEPHIN 1 Gm-D5w 50 ml Bag** 1 G/50 ML IVPB IV SCH (09:45)
--- NOTE | 2023-03-12 10:07 | CONS ---
CONSULT DATE: 03/10/2023 HISTORY OF PRESENT ILLNESS: Ms. Abebe is a 52 year-old woman with significant smoking history, who has been admitted with complaints of shortness of breath. She was noted to have significant hypoxemia and has been requiring supplemental O2. Patient categorically denies any previous pulmonary problems and reports fairly well preserved effort tolerance. She is currently on O2 via nasal cannula at 6 liters with desats with activity. Patient had a CT chest performed that was negative for pulmonary embolus. She also had a VQ scan performed that was low probability. She is being treated with steroids and antibiotics along with bronchodilators with clinical improvement. PAST MEDICAL HISTORY: Patient reportedly only takes aspirin and has been in good health. PAST SURGICAL HISTORY: No recent surgeries. PERSONAL AND SOCIAL HISTORY: She works at [employer]. She has been a smoker. ALLERGIES: MORPHINE AND IV CONTRAST. CURRENT MEDICATIONS: Medications reviewed. PHYSICAL EXAMINATION: Middle aged woman able to carry out a conversation. Appears comfortable. Vital signs noted. HEENT: Normocephalic. Oral exam is limited. CVS: 1st and 2nd heart sounds normal, regular rhythm. RESPIRATORY: Shows diminished breath sounds. Occasional rhonchi are heard. ABDOMEN: Soft. EXTREMITIES: No edema is noted. LABORATORY DATA: X-rays, CT and VQ reviewed. ASSESSMENT: This is a 52 year-old woman admitted with: 1. CHRONIC OBSTRUCTIVE PULMONARY DISEASE WITH ACUTE EXACERATION. 2. ACUTE BRONCHITIS. 3. HYPOXEMIA. 4. NICOTINE ADDICTION. RECOMMENDATIONS: 1. Patient has shown clinical improvement. 2. Continue to wean supplemental O2. May require supplemental O2 upon discharge if continues to desat. 3. Advised complete smoking cessation. 4. PFT as outpatient. 5. CTA will also serve as low-dose CT for screening moving forward given she is almost 53 years old. Will continue to follow upon discharge.
--- NOTE | 2023-03-12 10:40 | PCM.DS ---
Discharge Summary Date of Admission: 03/08/23 17:29 Date of Discharge: 03/12/23 Admitting Physician: LAWANDA BLANK MD Consults: Consults on Case 03/10/23 09:15 Consult Pulmonology ROUTINE Primary Care Provider: NO FAMILY DOCTOR Allergies Allergies morphine Allergy (Verified 03/08/23 11:36) IVP DYE Allergy (Uncoded 03/08/23 11:36) Hospital Summary - Hospital Course Hospital Course: This patient was admitted with dyspnea and cough. She had exacerbation of COPD. She was treated with bronchodilators and steroids. Symptoms improved and wheezing improved although she continues to require oxygen. The patient will be dismissed on 03/12/23. - Vitals & Intake/Output Vital Signs: Vital Signs Temperature 97.3 F 03/12/23 07:18 Pulse Rate 81 03/12/23 07:18 Respiratory Rate 21 03/12/23 07:18 Blood Pressure 153/77 03/12/23 07:18 O2 Sat by Pulse Oximetry 96 03/12/23 07:18 Intake & Output: Intake & Output 03/09/23 03/10/23 03/11/23 03/12/23 11:59 11:59 11:59 11:59 Intake Total 1762 3423 1332 3529 Balance 1762 3423 1332 3529 Weight 74.8 kg 74.8 kg - Lab Result Diagrams: 03/11/23 05:40 03/11/23 05:40 Micro Results-Entire Visit: Microbiology 03/08/23 12:20 Blood Culture - Preliminary Blood 03/08/23 12:13 Blood Culture - Preliminary Blood - Radiology Exams Ordered Rad Exams-Entire Visit: Radiology Procedures Category Date Time Status CHEST 1 VIEW (PORTABLE) Routine Exams 03/11/23 07:00 Completed - Procedures and Test Procedures and Tests throughout Hospitalization: Therapy Orders & Screens 03/08/23 16:12 Oxygen Nasal Cannula 2 lpm Comment: Respiratory Therapy Consult ONCE Comment: Reason For Exam: 03/08/23 17:10 Smoking Cessation Education ONCE Comment: Diagnosis: SOB, Hypoxia, Leukocytosis Smoking Status: Current every day smoker How long have you smoked: 45 years Have you smoked in the past 12 months: Yes Approximately how many cigarettes per day: 1 pack Do you dip or chew tobacco: No 03/09/23 09:47 EKG ROUTINE Comment: Diagnosis: SOB, Hypoxia, Leukocytosis 03/09/23 23:15 Flutter Therapy UD Comment: Diagnosis: SOB, Hypoxia, Leukocytosis Discharge Exam General Appearance: no apparent distress Neurologic Exam: alert, oriented x 3, cooperative Eye Exam: PERRL, EOMI Ears, Nose, Throat Exam: normal ENT inspection Neck Exam: normal inspection, non-tender, supple Respiratory Exam: normal breath sounds, rhonchi Cardiovascular Exam: regular rate/rhythm, normal heart sounds, normal peripheral pulses Gastrointestinal/Abdomen Exam: soft, normal bowel sounds, tenderness Pelvic Exam: deferred Rectal Exam: deferred Extremity Exam: normal inspection Skin Exam: normal color Lymphatic Exam: No adenopathy Final Diagnosis/Problem List - Final Discharge Diagnosis/Problem (1) Bronchitis Current Visit: Yes Status: Acute Code(s): J40 - BRONCHITIS, NOT SPECIFIED ACUTE OR CHRONIC (2) Acute respiratory failure with hypoxia Current Visit: Yes Status: Acute Code(s): J96.01 - ACUTE RESPIRATORY FAILURE WITH HYPOXIA Telemedicine Encounter - Telemedicine Encounter Telemedicine Encounter: The entirety of this encounter was performed via Telemedicine" - Discharge Disposition: Home, Self-Care Condition: Good Prescriptions: New Albuterol/Ipratropium 3ml Neb* [DUONEB 0.5-3 MG/3 ml Neb] 3 ml IH Q4HRT 30 Days Guaifenesin 600 mg ER [Mucinex 600MG ER Tabs] 600 mg PO BID 10 Days tablet Nicotine 21 mg [Nicoderm CQ 21 MG] 21 mg TOP Q24H 30 Days patch Prednisone 20 mg [Deltasone 20 mg] 0 mg PO BID 14 Days tablet Continue Aspirin 81 gm Chew [Baby Aspirin 81 mg Chew] 81 mg PO DAILY Ibuprofen 200 mg [Motrin 200 mg] 600 mg PO DAILY PRN PRN PRN Reason: Pain Instructions: Acute bronchitis, Oxygen Therapy, Adult (DC), Quitting smoking Additional Instructions: [facility] YOU CAN CALL THEM AT [phone] ANY QUESTIONS. YOU WILL NEED TO WEAR YOUR OXYGEN AT 2L AT HOME AT ALL TIMES. Follow up with: CAROLINE YEE [ACTIVE STAFF] - 03/25/23 11:00 am Forms: Work/School Release Form
[2023-03-12 11:51] VITALS: BP 179/84
[2023-03-12 14:45] VITALS: PULSE 88; RESP 18; O2SAT 95
== END 2023-03-12 15:03 | disposition home or self-care (01) | DRG 202 ==
LOC: ED 11:34 → MED SURG 16:10 → OBSVTOIN 17:29
PROVIDERS: ADMIT Internal Medicine; ATTEND Internal Medicine
DX: J40 Bronchitis, not specified as acute or chronic (principal); J96.01 Acute respiratory failure with hypoxia; J44.1 Chronic obstructive pulmonary disease with (acute) exacerbation; D72.829 Elevated white blood cell count, unspecified; F17.200 Nicotine dependence, unspecified, uncomplicated; E78.5 Hyperlipidemia, unspecified; Z20.828 Contact with and (suspected) exposure to other viral communicable diseases
CPT/HCPCS: 0241U; 36000; 36415; 36600; 71045; 71250; 80048; 80053; 82375; 82803; 82947; 83605; 83880; 84484; 85025; 85027; 85379; 86308; 87040; 87651; 93005; 93041; 93268; 94640; 94667; 94760; 94762; 96365; 96374; 96375; 99285; J0696; J2405; J2930; Q3014; A9270-GY; G0378

== ENCOUNTER 2024-06-05 02:43 | Observation (INO) | payer MEDICAID ==
[2024-06-05] MEDS ORDERED: Zofran 4 MG/2 ML VIAL ONE (03:39)
[2024-06-05] MEDS ORDERED: Sodium Chloride 0.9% 1000 ML 1,000 ML ONE (03:39)
[2024-06-05] MEDS: Zofran 4 MG/2 ML VIAL IV ONE (03:40)
--- NOTE | 2024-06-05 03:40 | ERPHSYRPT ---
- History of Present Illness Time Seen by Provider: 06/05/24 03:41 Source: patient Exam Limitations: no limitations Patient Subjective Stated Complaint: Pt. states, "I've been feeling bad since Wednesday, I have been coughing up yellow phlegm, I get sob when I walk. I am so nauseas and I can't keep anything down." Triage Nursing Assessment: Pt. ambulated to room but had to stop and rest d/t sob. Resp. slightly labored, A&Ox3, pleasant cooperative, Skin pale, warm and dry. Physician History: Patient is a 53-year-old female current smoker presents to emergency department for evaluation of progressive shortness of breath coughing nausea and vomiting. Patient reports shortness of breath is worse with exertion. She has not been able to tolerate p.o. No obvious sick contacts. Patient admits to fever. No rash. No diarrhea. Symptoms are progressive symptoms are moderate in intensity. Patient voices no other complaints or concerns at this time. Portions of this note were created with voice recognition technology. There may be grammatical, spelling, punctuation or sound alike errors Timing/Duration: day(s) (3 days) Severity: moderate Modifying Factors: Improves With: nothing Associated Symptoms: nausea, vomiting, fever Allergies/Adverse Reactions: doxycycline Allergy (Verified 06/05/24 05:37) morphine Allergy (Verified 03/08/23 11:36) IVP DYE Allergy (Severe, Uncoded 06/05/24 05:37) Home Medications: Aspirin 81 gm Chew [Baby Aspirin 81 mg Chew] 81 mg PO DAILY 03/08/23 [History] Hx Tetanus, Diphtheria Vaccination/Date Given: No Hx Influenza Vaccination/Date Given: No Hx Pneumococcal Vaccination/Date Given: No Immunizations Up to Date: No Travel Risk - International Travel Have you traveled outside of the country in past 3 weeks: No - Emerging Infectious Disease Are you exhibiting symptoms associated with any current EIDs: Yes Symptoms: Abdominal Pain, Cough: New Onset, Headaches/Body Aches/, Vomitting - Review of Systems Constitutional: No Symptoms, No Fever, No Chills Eyes: No Symptoms Ears, Nose, & Throat: No Symptoms Respiratory: No Symptoms, No Cough, No Dyspnea Cardiac: No Symptoms, No Chest Pain, No Edema, No Syncope Abdominal/Gastrointestinal: No Symptoms, No Abdominal Pain, No Nausea, No Vomiting, No Diarrhea Genitourinary Symptoms: No Symptoms, No Dysuria Musculoskeletal: No Symptoms, No Back Pain, No Neck Pain Skin: No Symptoms, No Rash Neurological: No Symptoms, No Dizziness, No Focal Weakness, No Sensory Changes Psychological: No Symptoms Endocrine: No Symptoms Hematologic/Lymphatic: No Symptoms Immunological/Allergic: No Symptoms All Other Systems: Reviewed and Negative - Past Medical History Pertinent Past Medical History: Yes Neurological History: No Pertinent History ENT History: No Pertinent History Cardiac History: High Cholesterol Respiratory History: No Pertinent History Endocrine Medical History: No Pertinent History Musculoskeletal History: No Pertinent History GI Medical History: No Pertinent History History: No Pertinent History Psycho-Social History: Depression Female Reproductive Disorders: No Pertinent History Other Medical History: juvenile arthritis - Past Surgical History Past Surgical History: Yes Neuro Surgical History: No Pertinent History Cardiac: No Pertinent History Respiratory: No Pertinent History Gastrointestinal: Appendectomy Genitourinary: No Pertinent History Musculoskeletal: Other Female Surgical History: Section, Hysterectomy, Other Other Surgical History: X1. D&C. Left shoulder surgery in 2017 for torn bicep Significant Family History: no pertinent family hx - Social History Smoking Status: Current every day smoker How long have you smoked: 38 years Exposure to second hand smoke: No Drug Use: none - Social Determinants of Health Will the patient participate in the screening: Declined to provide - Nursing Vital Signs Nursing Vital Signs: Initial Vital Signs Temperature 97.4 F 06/05/24 02:53 Pulse Rate 74 06/05/24 02:53 Respiratory Rate 22 06/05/24 02:53 Blood Pressure 141/77 06/05/24 02:53 O2 Sat by Pulse Oximetry 93 L 06/05/24 02:53 Pain Scale Pain Intensity 3 - Physical Exam General Appearance: no apparent distress, alert Eye Exam: PERRL/EOMI, eyes nml inspection Ears, Nose, Throat Exam: normal ENT inspection, pharynx normal, moist mucous membranes Neck Exam: normal inspection, non-tender, supple, full range of motion Respiratory Exam: airway intact, diminished breath sounds, rhonchi, wheezing, No respiratory distress Cardiovascular Exam: regular rate/rhythm, normal heart sounds, normal peripheral pulses Gastrointestinal/Abdomen Exam: soft, normal bowel sounds, tenderness (Diffuse abdominal tenderness), No mass Back Exam: normal inspection, normal range of motion, No CVA tenderness, No vertebral tenderness Extremity Exam: normal inspection, normal range of motion, pelvis stable Neurologic Exam: alert, oriented x 3, cooperative, normal mood/affect, nml station & gait, sensation nml, No motor deficits Skin Exam: normal color, warm, dry, No rash Lymphatic Exam: No adenopathy SpO2 Interpretation: normal SpO2: 93 O2 Delivery: Room Air - Course Nursing assessment & vital signs reviewed: Yes EKG Interpreted by Me: RATE (82), Sinus Rhythm, NORMAL AXIS, NORMAL INTERVALS, NORMAL QRS - CT Exams Abdomen/Pelvis CT Interpretation: Tele-radiologist Report (Enlarged liver, cholelithiasis, right nephrolithiasis, right kidney angiomyolipoma, diverticulosis, intra- abdominal lymphadenopathy) Ordered Tests: Active Orders 24 hr Category Date Time Status Major Assembly Lineman STAT Care 06/05/24 03:37 Active EKG-ER Only STAT Care 06/05/24 03:34 Active IV Insertion STAT Care 06/05/24 03:34 Active Pulse Oximetry (ED) STAT Care 06/05/24 03:34 Active ABDOMEN AND PELVIS W/0 CONTRAS [CT] Stat Exams 06/05/24 03:40 Completed CHEST 1 VIEW (PORTABLE) Stat Exams 06/05/24 03:39 Taken BLOOD CULTURE Stat Lab 06/05/24 05:13 Received BNPII [NT PRO BNPII] Stat Lab 06/05/24 04:53 Completed CBC W DIFF Stat Lab 06/05/24 04:35 Completed CK (IN-HOUSE) [CK-Creatinine Phosphokinase] Stat Lab 06/05/24 04:53 Completed CMP Stat Lab 06/05/24 04:35 Completed CULTURE,URINE Stat Lab 06/05/24 04:31 Received D-DIMER QUANTITATIVE Stat Lab 06/05/24 04:35 Completed LIPASE Stat Lab 06/05/24 04:35 Completed TROPONIN Q4H Lab 06/05/24 04:35 Completed TROPONIN Q4H Lab 06/05/24 07:45 Ordered TROPONIN Q4H Lab 06/05/24 11:45 Ordered UA W/RFX UR CULTURE Stat Lab 06/05/24 04:31 Completed Respiratory Therapy Assessment DAILY RT 06/05/24 04:17 Active Transfer Order Routine Transfer 06/05/24 Ordered Medication Summary Generic Name Dose Route Start Last Admin Trade Name Freq PRN Reason Stop Dose Admin Sodium Chloride 1,000 mls @ 500 mls/hr 06/05/24 03:45 06/05/24 05:46 Sodium Chloride 0.9% 1000 Ml IV 07/05/24 03:44 Infused .Q2H ELIECER Infusion Discontinued Medications Generic Name Dose Route Start Last Admin Trade Name Freq PRN Reason Stop Dose Admin Hydrocodone Bitart/Acetaminophen 10 ml 06/05/24 04:44 06/05/24 04:50 Hydrocodone/Acetaminophen 5 Ml Udcup PO 06/05/24 04:45 10 ml STAT STA Administration Hydrocodone Bitart/Acetaminophen Confirm 06/05/24 04:47 Hydrocodone/Acetaminophen 5 Ml Udcup Administered 06/05/24 04:48 Dose 10 ml .ROUTE .STK-MED ONE Albuterol/Ipratropium 3 ml 06/05/24 04:05 06/05/24 04:21 Ipratropium/Albuterol Sulfate 3 Ml Ampul.Neb IH 06/05/24 04:06 3 ml STAT ONE Administration Albuterol/Ipratropium Confirm 06/05/24 04:14 Ipratropium/Albuterol Sulfate 3 Ml Ampul.Neb Administered 06/05/24 04:15 Dose 3 ml IH .STK-MED ONE Methylprednisolone Sodium 0 mg 06/05/24 04:06 06/05/24 04:21 Succinate 125 mg/ Sterile IV 06/05/24 04:07 125 mg Water 2 ml STAT ONE Administration Enoxaparin Sodium 80 mg 06/05/24 05:49 06/05/24 06:06 Enoxaparin Sodium 80 Mg/0.8 Ml Syringe SQ 06/05/24 05:50 80 mg STAT ONE Administration Enoxaparin Sodium Confirm 06/05/24 06:05 Enoxaparin Sodium 80 Mg/0.8 Ml Syringe Administered 06/05/24 06:06 Dose 80 mg SQ .STK-MED ONE Azithromycin 500 mg in 250 mls @ 250 mls/hr 06/05/24 05:35 06/05/24 05:46 Zithromax 500 Mg/ 250 Ml Nacl Premix IV 06/05/24 06:34 250 mls/hr STAT STA Administration Ceftriaxone Sodium 2 gm in 100 mls @ 200 mls/hr 06/05/24 05:35 06/05/24 05:39 Rocephin 2 Gm/100 Ml Nacl IV 06/05/24 06:04 200 mls/hr STAT ONE Administration Ceftriaxone Sodium Confirm 06/05/24 05:36 Rocephin 1 Gm / 100 Ml Nacl Administered 06/05/24 05:37 Dose 1 gm in 100 mls @ ud IV .STK-MED ONE Ceftriaxone Sodium Confirm 06/05/24 05:38 Rocephin 2 Gm/100 Ml Nacl Administered 06/05/24 05:39 Dose 2 gm in 100 mls @ ud IV .STK-MED ONE Azithromycin Confirm 06/05/24 05:45 Zithromax 500 Mg/ 250 Ml Nacl Premix Administered 06/05/24 05:46 Dose 500 mg in 250 mls @ ud IV .STK-MED ONE Methylprednisolone Sodium Succinate Confirm 06/05/24 04:20 Methylprednis Sod Succ 125 Mg/2 Ml Vial Administered 06/05/24 04:21 Dose 125 mg .ROUTE .STK-MED ONE Ondansetron HCl 4 mg 06/05/24 03:38 06/05/24 03:40 Ondansetron Hcl 4 Mg/2 Ml Vial IV 06/05/24 03:39 4 mg STAT ONE Administration Ondansetron HCl Confirm 06/05/24 03:39 Ondansetron Hcl 4 Mg/2 Ml Vial Administered 06/05/24 03:40 Dose 4 mg .ROUTE .STK-MED ONE Sterile Water Confirm 06/05/24 04:20 Water For Injection,Sterile 10 Ml Vial Administered 06/05/24 04:21 Dose 10 ml IJ .STK-MED ONE Lab/Rad Data: Laboratory Result Diagrams 06/05/24 04:35 06/05/24 04:35 Laboratory Results 06/05/24 06/05/24 06/05/24 Range/Units 04:53 04:53 04:35 WBC (3.98-10.04) x10^3/uL RBC (3.93-5.22) x10^6/uL Hgb (11.2-15.7) g/dL Hct (34.1-44.9) % MCV (79.4-94.8) fL MCH (25.6-32.2) pg MCHC (32.2-35.5) g/dL RDW (11.7-14.4) % Plt Count (182-369) x10^3/uL MPV (9.4-12.3) fL Gran % (34.0-71.1) % Immature Gran % (Auto) (0.001-0.429) % Nucleat RBC Rel Count (0.00-0.2) % Eos # (Auto) (0.04-0.36) x10^3/uL Immature Gran # (Auto) (0.001-0.031) x10^3u/L Absolute Lymphs (auto) (1.18-3.74) x10^3/uL Absolute Monos (auto) (0.24-0.86) x10^3/uL Absolute Nucleated RBC (0.00-0.012) x10^3u/L Lymphocytes % (19.3-51.7) % Monocytes % (4.7-12.5) % Eosinophils % (0.7-5.8) % Basophils % (0.1-1.2) % Absolute Granulocytes (1.56-6.13) x10^3/uL Basophils # (0.01-0.08) x10^3/uL D-Dimer 0.73 H* (0.0-0.50) mg/L Sodium (135-145) mmol/L Potassium (3.5-5.1) mmol/L Chloride (98-107) mmol/L Carbon Dioxide (22-30) mmol/L Anion Gap (5-15) MEQ/L BUN (7-17) mg/dL Creatinine (0.52-1.04) mg/dL Estimated GFR ML/MIN Glucose (74-106) mg/dL Calcium (8.4-10.2) mg/dL Total Bilirubin (0.2-1.3) mg/dL AST (14-36) U/L ALT (0-35) U/L Alkaline Phosphatase (38-126) U/L Creatine Kinase 229 H (30-135) U/L Troponin I (0.000-0.033) ng/mL NT-Pro-B Natriuret Pep 27.2 (<300) pg/mL Serum Total Protein (6.3-8.2) g/dL Albumin (3.5-5.0) g/dL Lipase (23-300) U/L Urine Color (Yellow) Urine Appearance (Clear) Urine pH (4.6-8.0) Ur Specific Stanton (1.005-1.030) Urine Protein (Negative) Urine Glucose (UA) (Negative) mg/dL Urine Ketones (Negative) Urine Blood (Negative) Urine Nitrite (Negative) Urine Bilirubin (Negative) Urine Urobilinogen (0.2) mg/dL Ur Leukocyte Esterase (Negative) U Hyaline Cast (Auto) (0-2) /LPF Urine Microscopic RBC (0-5) /HPF Urine Microscopic WBC (0-5) /HPF Ur Epithelial Cells (None Seen) /HPF Urine Bacteria (None Seen) /HPF Urine Culture Reflexed (NO) Influenza Type A Ag (NEGATIVE) Influenza Type B Ag (NEGATIVE) RSV (PCR) (NEGATIVE) SARS-CoV-2 (PCR) (NEGATIVE) 06/05/24 06/05/24 06/05/24 Range/Units 04:35 04:35 04:35 WBC 4.6 (3.98-10.04) x10^3/uL RBC 5.42 H (3.93-5.22) x10^6/uL Hgb 14.8 (11.2-15.7) g/dL Hct 45.5 H (34.1-44.9) % MCV 83.9 (79.4-94.8) fL MCH 27.3 (25.6-32.2) pg MCHC 32.5 (32.2-35.5) g/dL RDW 14.6 H (11.7-14.4) % Plt Count 314 (182-369) x10^3/uL MPV 8.7 L (9.4-12.3) fL Gran % 47.8 (34.0-71.1) % Immature Gran % (Auto) 0.7 H (0.001-0.429) % Nucleat RBC Rel Count 0.0 (0.00-0.2) % Eos # (Auto) 0.02 L (0.04-0.36) x10^3/uL Immature Gran # (Auto) 0.03 (0.001-0.031) x10^3u/L Absolute Lymphs (auto) 1.42 (1.18-3.74) x10^3/uL Absolute Monos (auto) 0.89 H (0.24-0.86) x10^3/uL Absolute Nucleated RBC 0.00 (0.00-0.012) x10^3u/L Lymphocytes % 31.0 (19.3-51.7) % Monocytes % 19.4 H (4.7-12.5) % Eosinophils % 0.4 L (0.7-5.8) % Basophils % 0.7 (0.1-1.2) % Absolute Granulocytes 2.19 (1.56-6.13) x10^3/uL Basophils # 0.03 (0.01-0.08) x10^3/uL D-Dimer (0.0-0.50) mg/L Sodium 139 (135-145) mmol/L Potassium 3.7 (3.5-5.1) mmol/L Chloride 100 (98-107) mmol/L Carbon Dioxide 27 (22-30) mmol/L Anion Gap 15.6 H (5-15) MEQ/L BUN 13 (7-17) mg/dL Creatinine 0.63 (0.52-1.04) mg/dL Estimated GFR 104.7 ML/MIN Glucose 103 (74-106) mg/dL Calcium 9.3 (8.4-10.2) mg/dL Total Bilirubin 0.40 (0.2-1.3) mg/dL AST 63 H (14-36) U/L ALT 31 (0-35) U/L Alkaline Phosphatase 96 (38-126) U/L Creatine Kinase (30-135) U/L Troponin I < 0.012 (0.000-0.033) ng/mL NT-Pro-B Natriuret Pep (<300) pg/mL Serum Total Protein 7.4 (6.3-8.2) g/dL Albumin 4.4 (3.5-5.0) g/dL Lipase 95 (23-300) U/L Urine Color (Yellow) Urine Appearance (Clear) Urine pH (4.6-8.0) Ur Specific Stanton (1.005-1.030) Urine Protein (Negative) Urine Glucose (UA) (Negative) mg/dL Urine Ketones (Negative) Urine Blood (Negative) Urine Nitrite (Negative) Urine Bilirubin (Negative) Urine Urobilinogen (0.2) mg/dL Ur Leukocyte Esterase (Negative) U Hyaline Cast (Auto) (0-2) /LPF Urine Microscopic RBC (0-5) /HPF Urine Microscopic WBC (0-5) /HPF Ur Epithelial Cells (None Seen) /HPF Urine Bacteria (None Seen) /HPF Urine Culture Reflexed (NO) Influenza Type A Ag (NEGATIVE) Influenza Type B Ag (NEGATIVE) RSV (PCR) (NEGATIVE) SARS-CoV-2 (PCR) (NEGATIVE) 06/05/24 06/05/24 Range/Units 04:31 03:47 WBC (3.98-10.04) x10^3/uL RBC (3.93-5.22) x10^6/uL Hgb (11.2-15.7) g/dL Hct (34.1-44.9) % MCV (79.4-94.8) fL MCH (25.6-32.2) pg MCHC (32.2-35.5) g/dL RDW (11.7-14.4) % Plt Count (182-369) x10^3/uL MPV (9.4-12.3) fL Gran % (34.0-71.1) % Immature Gran % (Auto) (0.001-0.429) % Nucleat RBC Rel Count (0.00-0.2) % Eos # (Auto) (0.04-0.36) x10^3/uL Immature Gran # (Auto) (0.001-0.031) x10^3u/L Absolute Lymphs (auto) (1.18-3.74) x10^3/uL Absolute Monos (auto) (0.24-0.86) x10^3/uL Absolute Nucleated RBC (0.00-0.012) x10^3u/L Lymphocytes % (19.3-51.7) % Monocytes % (4.7-12.5) % Eosinophils % (0.7-5.8) % Basophils % (0.1-1.2) % Absolute Granulocytes (1.56-6.13) x10^3/uL Basophils # (0.01-0.08) x10^3/uL D-Dimer (0.0-0.50) mg/L Sodium (135-145) mmol/L Potassium (3.5-5.1) mmol/L Chloride (98-107) mmol/L Carbon Dioxide (22-30) mmol/L Anion Gap (5-15) MEQ/L BUN (7-17) mg/dL Creatinine (0.52-1.04) mg/dL Estimated GFR ML/MIN Glucose (74-106) mg/dL Calcium (8.4-10.2) mg/dL Total Bilirubin (0.2-1.3) mg/dL AST (14-36) U/L ALT (0-35) U/L Alkaline Phosphatase (38-126) U/L Creatine Kinase (30-135) U/L Troponin I (0.000-0.033) ng/mL NT-Pro-B Natriuret Pep (<300) pg/mL Serum Total Protein (6.3-8.2) g/dL Albumin (3.5-5.0) g/dL Lipase (23-300) U/L Urine Color Dark Yellow A (Yellow) Urine Appearance Clear (Clear) Urine pH 6.0 (4.6-8.0) Ur Specific Stanton 1.025 (1.005-1.030) Urine Protein 30 (Negative) Urine Glucose (UA) Negative (Negative) mg/dL Urine Ketones Trace A (Negative) Urine Blood Trace (Negative) Urine Nitrite Negative (Negative) Urine Bilirubin Negative (Negative) Urine Urobilinogen 1.0 A (0.2) mg/dL Ur Leukocyte Esterase Negative (Negative) U Hyaline Cast (Auto) NONE SEEN (0-2) /LPF Urine Microscopic RBC 11-20 A (0-5) /HPF Urine Microscopic WBC 3-5 (0-5) /HPF Ur Epithelial Cells Few (None Seen) /HPF Urine Bacteria Rare A (None Seen) /HPF Urine Culture Reflexed YES (NO) Influenza Type A Ag NEGATIVE (NEGATIVE) Influenza Type B Ag NEGATIVE (NEGATIVE) RSV (PCR) NEGATIVE (NEGATIVE) SARS-CoV-2 (PCR) NEGATIVE (NEGATIVE) - Progress Progress: improved Progress Note: 53-year-old female presents to emergency department for evaluation of fever diarrhea cough shortness of breath abdominal pain. Physical exam reveals coarse breath sounds diminished with wheezing. Patient had mild generalized abdominal pain. COVID RSV influenza negative however I believe patient's symptomology is secondary to a viral process. Chest x-ray formal read pending. However I compared the chest x-ray to the previous there are multiple areas of granulomatous disease/focal calcifications however this appears to be unchanged from previous. D-dimer positive. Patient not a candidate for CTA secondary to contrast dye allergy. Patient received a dose of Lovenox. Possible VQ scan as an inpatient. Patient O2 sat on room air is 87%. Patient normally does not require oxygen. Patient on supplemental oxygen 4 L satting 95%. Workup reveals dehydration. BUN/creatinine ratio greater than 20. Specific gravity elevated as well. IV fluids infused. Blood cultures obtained. IV antibiotics initiated. CT abdomen pelvis chronic findings however there is intra-abdominal lymphadenopathy observed. Please see CT report for details.. Patient reassessed. She feels much better. However in light of her hypoxia patient will be admitted. Plan of care discussed with patient. She agrees to admission to [facility] for further evaluation and treatment. Management discussed with hospitalist admission to observation at 7:22 AM. Initial troponin negative. CK was ordered secondary to positive RBC trace blood on urinalysis. CK within normal limits. Portions of this note were created with voice recognition technology. There may be grammatical, spelling, punctuation or sound alike errors Complexity of problem addressed is moderate acute complicated no critical care time. Complex of data reviewed analyzes extensive. Test ordered test reviewed results analyzed and correlated clinically with history and physical exam. Risk of complication and or risk of morbidity/mortality of patient management is high. Patient requires hospitalization for further evaluation and treatment. Vital stable. Time spent to admit patient is approximately 20 minutes. Plan of care established for shared decision making. No social determinants of health present to impede follow-up. Portions of this note were created with voice recognition technology. There may be grammatical, spelling, punctuation or sound alike errors 06/05/24 07:44 06/05/24 07:48 Counseled pt/family regarding: lab results, diagnosis, rad results - Departure Departure Disposition: Observation Clinical Impression: Nausea and vomiting, Shortness of breath, Abdominal pain, Hypoxia, Dehydration, Hepatomegaly, Cholelithiasis, Angiomyolipoma of right kidney, Diverticulosis, Intra-abdominal lymphadenopathy Condition: Stable Critical Care Time: No Referrals: DOCTOR,NO FAMILY [Primary Care Provider] - Follow up/PCP as directed
[2024-06-05] MEDS: Sodium Chloride 0.9% 1000 ML 1,000 ML IV SCH ×2 (03:41→16:28)
[2024-06-05] MEDS ORDERED: DUONEB 0.5-3 MG/3 ml Neb IH ONE (04:14)
[2024-06-05] MEDS ORDERED: solu-MEDROL ONE (04:20)
[2024-06-05] MEDS ORDERED: Sterile H2O 10 ml IJ ONE (04:20)
[2024-06-05] MEDS: solu-MEDROL 125 MG, Sterile H2O 10 ml 2 ML IV ONE (04:21)
[2024-06-05] MEDS: DUONEB 0.5-3 MG/3 ml Neb IH ONE (04:21)
[2024-06-05 04:38] LABS: Absolute Neutrophil Ct (ANC) 2.19 x10^3/uL (1.56-6.13); BASOPHIL % 0.7 % (0.1-1.2); Basophil (Absolute #) 0.03 x10^3/uL (0.01-0.08); Eosinophil % 0.4 % (0.7-5.8); Eosinophil (Absolute #) 0.02 x10^3/uL (0.04-0.36); Hematocrit 45.5 % (34.1-44.9); Hemoglobin 14.8 g/dL (11.2-15.7); IMMATURE GRAN # 0.03 x10^3u/L (0.001-0.031); IMMATURE GRAN % 0.7 % (0.001-0.429); Lymphocyte (Absolute #) 1.42 x10^3/uL (1.18-3.74); Mean Cell Volume 83.9 fL (79.4-94.8); Mean Corpuscular Hemoglobin 27.3 pg (25.6-32.2); Mean Corpuscular Hgb Concent. 32.5 g/dL (32.2-35.5); Mean Platelet Volume 8.7 fL (9.4-12.3); Monocyte (Absolute #) 0.89 x10^3/uL (0.24-0.86); Monocytes % 19.4 % (4.7-12.5); Neutrophil % 47.8 % (34.0-71.1); Platelet Count 314 x10^3/uL (182-369); Red Blood Count 5.42 x10^6/uL (3.93-5.22); Red Cell Distribution Width 14.6 % (11.7-14.4); White Blood Count 4.6 x10^3/uL (3.98-10.04)
[2024-06-05 04:45] LABS: ALBUMIN 4.4 g/dL (3.5-5.0); ANION GAP 15.6 MEQ/L (5-15); BILIRUBIN,TOTAL 0.4 mg/dL (0.2-1.3); Calcium 9.3 mg/dL (8.4-10.2); Creatinine 1 0.63 mg/dL (0.52-1.04); EST GLOMERULAR FILTRATION RATE 104.7 ML/MIN; Potassium 3.7 mmol/L (3.5-5.1); Total Protein 7.4 g/dL (6.3-8.2)
[2024-06-05] MEDS ORDERED: HYDROCODONE-ACETAMIN 2.5-108/5 ML SOLUTION ONE (04:47)
[2024-06-05] MEDS: HYDROCODONE-ACETAMIN 2.5-108/5 ML SOLUTION PO STA (04:50)
[2024-06-05 05:04] LABS: Appearance Clear (Clear); Bacteria Rare /HPF (None Seen); Bilirubin Negative (Negative); Blood Trace (Negative); Epithelial Cells Few /HPF (None Seen); Glucose, Urine Negative (Negative); Hyaline Casts NONE SEEN /LPF (0-2); Ketones Trace (Negative); Leukocyte Esterase Negative (Negative); Nitrite Negative (Negative); Protein,Urine Dip 30 (Negative); Specific Gravity 1.025 (1.005-1.030)
[2024-06-05 05:30] LABS: INFLUENZA A NEGATIVE (NEGATIVE); INFLUENZA B NEGATIVE (NEGATIVE); RESPIRATORY SYNCTIAL VIRUS NEGATIVE (NEGATIVE); SARS-CoV-2 Xpert Express NEGATIVE (NEGATIVE)
[2024-06-05] MEDS ORDERED: ROCEPHIN 1 GM / 100 ML NaCl 0 GM/0 ML IVPB IV ONE (05:36)
[2024-06-05] MEDS ORDERED: ROCEPHIN 2 GM/100 ML NACL 2 GM/100 ML IVPB IV ONE (05:38)
[2024-06-05] MEDS: ROCEPHIN 2 GM/100 ML NACL 2 GM/100 ML IVPB IV ONE (05:39)
[2024-06-05] MEDS ORDERED: Zithromax 500 MG/ 250 ML NaCl Premix 500 MG/250 ML IVPB IV ONE (05:45)
[2024-06-05] MEDS: Zithromax 500 MG/ 250 ML NaCl Premix 500 MG/250 ML IVPB IV STA (05:46)
[2024-06-05] MEDS ORDERED: ENOXAPARIN SODIUM SQ ONE (06:05)
[2024-06-05] MEDS: ENOXAPARIN SODIUM SQ ONE (06:06)
--- NOTE | 2024-06-05 06:36 | XRAY ---
CLINICAL HISTORY: pain COMPARISON: "No prior studies available for comparison." TECHNIQUE: Non-contrast CT of the abdomen and pelvis was performed, with the following protocol: axial images, and reconstructed coronal and sagittal images. No intravenous contrast was administered. One of the following dose reduction techniques was utilized for this exam: Automated exposure control, adjustment of the mA and/or kV according to patient size, and use of iterative reconstruction. FINDINGS: Abdomen: Liver: Mildly enlarged in size with normal shape showing tiny calcific focus at caudate lobe with no focal lesions or cysts identified (on non contrast bases). Gallbladder and Biliary System: The gallbladder is normal in size and shape showing stone measuring 8 mm. No wall thickening, pericholecystic fluid were identified. Pancreas: Pancreatic head, body, and tail are visualized and appear normal in size and density. No pancreatic masses or calcifications were noted. Spleen: Normal in size, shape, and density. No splenic lesions or masses were identified. Kidneys and Adrenal Glands: Both kidneys are normal in size, shape, and position. Cortical thickness is within normal limits. No left renal calculi. Right renal upper calyceal non-obstructing stone measuring 1.5 mm. No hydronephrosis. Right renal mid-polar cortical lesion of fat attenuation value measuring 7.5 x 14 x 15 mm in its maximum AP x TS x CC dimensions respectively is seen, likely angiomyolipoma. Adrenal glands are unremarkable. Appendix: Not seen. No CT evidence of acute appendicitis. Pelvis: Urinary Bladder: empty. Uterus: history of hysterectomy. Ovaries: Not well visualized but no gross abnormalities noted. Vagina: Normal in contour and wall thickness. Peritoneal and Retroperitoneal Structures: No free fluid or abnormal fluid collections were identified within the abdomen or pelvis. Multiple para aortic, bilateral common, external and internal iliac lymph nodes are seen, largest measuring 20 x 13 mm (left external iliac) and 19 x 8 mm (right internal iliac). Multiple mesenteric lymph nodes are seen, largest measuring 12 x 8mm. Multiple bilateral inguinal lymph nodes are seen, largest measuring 18 mm (left side). Bowel: Colonic diverticulsis. No evidence of divreticuitis. The visualized bowel loops are normal in caliber. No evidence of bowel obstruction or wall thickening. Bones and Soft Tissues: Lumbar spondylosis with depressed end plate and sclerosis of likely schmorl's nodes. Bilateral sacroiliitis (more in the right side). A small (about 6 mm) fat containing umbilical hernia is seen. Lower lung lobes show bilateral pulmonary nodules, largest seen at right side measuring 14 mm with internal calcifications. IMPRESSION: Gall bladder stone. Right renal upper calyceal non-obstructing stone measuring 1.5 mm. No hydronephrosis. Multiple subcentimetric para-aortic, mesenteric and bulky bilateral common, external, and internal iliac lymph nodes, clinical correlation recommended. Multiple bilateral inguinal lymph nodes. Right renal mid-polar cortical lesion of fat attenuation value, likely an angiomyolipoma. Electronically Signed by: Rosa Isela Velez MD. (06/05/2024 06:31:31 EST)
--- NOTE | 2024-06-05 08:38 | XRAY ---
Indication: Cough and wheezing. Comparison: March 11, 2023 Portable chest unchanged again demonstrating scattered pulmonary, mediastinal, and hilar calcified granulomas. Heart not enlarged. Bony thorax intact. No new/acute findings.
--- NOTE | 2024-06-05 12:32 | PCM.HP ---
<CHRISTOPHER HOLLIDAY - Last Filed: 06/05/24 12:39> History of Present Illness - Chief Complaint Chief Complaint: Hypoxia, Date: 06/05/24 History of Present Illness: is a 53 year old female with a pmhx of tobacco abuse and HLD who presented to ED 06/05/24 with complaints of fever, nausea, vomiting, cough, and dyspnea. Patient reports onset of symptoms 06/01/24. She has been unable to tolerate a diet and feels very weak. She has been febrile with TMax of 103 (Wednesday).Cough is productive with yellow sputum. Dyspnea worse with exertion. Denies recent sick contacts. Denies cp, abdominal pain, RANDLE, or dizziness. Upon arrival to ED patient hypoxic. Patient placed on 4L [place]. EKG NS. CT abdomen demonstrating enlarged liver, cholelithiasis, right nephrolithiasis, right kidney angiomyolipoma, diverticulosis, intra-abdominal lymphadenopathy. CXR with no acute findings. DDimer elevated (VQ scan ordered). Initial lab findings unremarkable. Respiratory viral panel negative. Patient received Ceftriaxone/azithromycin, DuoNebs, solumedrol in ED. Admit for acute respiratory failure with hypoxia. - Review of Systems Constitutional: Fever, Chills, Weakness Eyes: No Symptoms Ears, Nose, & Throat: No Symptoms Respiratory: Cough, Short Of Breath, Wheezing Cardiac: No Symptoms Abdominal/Gastrointestinal: Nausea, Vomiting Genitourinary Symptoms: No Symptoms Musculoskeletal: No Symptoms Skin: No Symptoms Neurological: No Symptoms Psychological: No Symptoms Endocrine: No Symptoms Hematologic/Lymphatic: No Symptoms Immunological/Allergic: No Symptoms Medications & Allergies Home Medications: Home Medication List Aspirin 81 gm Chew [Baby Aspirin 81 mg Chew] 81 mg PO DAILY 03/08/23 [History Confirmed 06/05/24] Albuterol/Ipratropium 3ml Neb* [DUONEB 0.5-3 MG/3 ml Neb] 3 ml IH Q4HRT 30 Days 03/11/23 [Rx Confirmed 06/05/24] Allergies/Adverse Reactions: Allergies Allergy/AdvReac Type Severity Reaction Status Date / Time doxycycline Allergy Verified 06/05/24 05:37 morphine Allergy Verified 03/08/23 11:36 IVP DYE Allergy Severe Uncoded 06/05/24 05:37 - Past Medical History Past Medical History: Yes Neurological History: No Pertinent History ENT History: No Pertinent History Cardiac History: High Cholesterol Respiratory History: No Pertinent History Endocrine Medical History: No Pertinent History Musculoskelatal History: No Pertinent History, Arthritis GI Medical History: No Pertinent History History: No Pertinent History Pyscho-Social History: Anxiety, Depression Reproductive Disorders: No Pertinent History Comment: juvenile arthritis - Past Surgical History Past Surgical History: Yes Neuro Surgical History: No Pertinent History Cardiac History: No Pertinent History Respiratory Surgery: No Pertinent History GI Surgical History: Appendectomy Genitourinary Surgical Hx: No Pertinent History Musculskeletal Surgical Hx: Other Female Surgical History: Section, Hysterectomy, Other Other Surgical History: X1. D&C. Left shoulder surgery in 2017 for torn bicep Significant Family History: heart disease - Social History Smoking Status: Current every day smoker How long have you smoked: Exposure to second hand smoke: Yes Alcohol: None Drug Use: none - Social Determinants of Health Will the patient participate in the screening: Yes Do you worry about a steady place to live?: No Do you have any problems with any of the following?: No known problems In the past 12 months,have you had to go without utilities?: No Have you or anyone in your house had to go without enough: No Transportation Issues: No Has anyone in your support network made you feel unsafe?: No Does the patient want assistance with any of the above?: No - Physical Exam Vital Signs: Vital Signs - 24 hr Temp Pulse Resp BP BP Pulse Ox 06/05/24 11:57 78 18 128/70 94 L 06/05/24 09:49 93 L 06/05/24 09:47 98.3 F 69 18 127/70 95 06/05/24 08:01 98.3 F 69 18 127/70 95 06/05/24 07:50 93 L 06/05/24 07:30 112/60 95 06/05/24 07:00 115/69 91 L 06/05/24 06:30 108/69 95 06/05/24 06:01 126/77 93 L 06/05/24 05:30 101/60 95 06/05/24 05:00 129/66 95 06/05/24 04:31 128/83 97 06/05/24 04:25 83 22 96 06/05/24 04:00 116/73 97 06/05/24 03:56 114/76 91 L 06/05/24 03:34 91 L 06/05/24 03:31 133/94 92 L 06/05/24 03:00 128/74 90 L 06/05/24 02:53 97.4 F 74 22 141/77 93 L General Appearance: no apparent distress Neurologic Exam: alert, oriented x 3, cooperative Eye Exam: PERRL/EOMI Ears, Nose, Throat Exam: normal ENT inspection Neck Exam: normal inspection Respiratory Exam: wheezing Cardiovascular Exam: regular rate/rhythm, normal heart sounds Gastrointestinal/Abdomen Exam: soft, normal bowel sounds Pelvic Exam: not done Rectal Exam: deferred Back Exam: normal inspection Extremity Exam: normal inspection Skin Exam: normal color Results - Labs Lab/Micro Results: Lab Results-Last 24 Hours 06/05/24 06/05/24 06/05/24 Range/Units 03:47 04:31 04:35 WBC 4.6 (3.98-10.04) x10^3/uL RBC 5.42 H (3.93-5.22) x10^6/uL Hgb 14.8 (11.2-15.7) g/dL Hct 45.5 H (34.1-44.9) % MCV 83.9 (79.4-94.8) fL MCH 27.3 (25.6-32.2) pg MCHC 32.5 (32.2-35.5) g/dL RDW 14.6 H (11.7-14.4) % Plt Count 314 (182-369) x10^3/uL MPV 8.7 L (9.4-12.3) fL Gran % 47.8 (34.0-71.1) % Immature Gran % (Auto) 0.7 H (0.001-0.429) % Nucleat RBC Rel Count 0.0 (0.00-0.2) % Eos # (Auto) 0.02 L (0.04-0.36) x10^3/uL Immature Gran # (Auto) 0.03 (0.001-0.031) x10^3u/L Absolute Lymphs (auto) 1.42 (1.18-3.74) x10^3/uL Absolute Monos (auto) 0.89 H (0.24-0.86) x10^3/uL Absolute Nucleated RBC 0.00 (0.00-0.012) x10^3u/L Lymphocytes % 31.0 (19.3-51.7) % Monocytes % 19.4 H (4.7-12.5) % Eosinophils % 0.4 L (0.7-5.8) % Basophils % 0.7 (0.1-1.2) % Absolute Granulocytes 2.19 (1.56-6.13) x10^3/uL Basophils # 0.03 (0.01-0.08) x10^3/uL D-Dimer (0.0-0.50) mg/L Sodium (135-145) mmol/L Potassium (3.5-5.1) mmol/L Chloride (98-107) mmol/L Carbon Dioxide (22-30) mmol/L Anion Gap (5-15) MEQ/L BUN (7-17) mg/dL Creatinine (0.52-1.04) mg/dL Estimated GFR ML/MIN Glucose (74-106) mg/dL Calcium (8.4-10.2) mg/dL Total Bilirubin (0.2-1.3) mg/dL AST (14-36) U/L ALT (0-35) U/L Alkaline Phosphatase (38-126) U/L Creatine Kinase (30-135) U/L Troponin I (0.000-0.033) ng/mL NT-Pro-B Natriuret Pep (<300) pg/mL Serum Total Protein (6.3-8.2) g/dL Albumin (3.5-5.0) g/dL Lipase (23-300) U/L Urine Color Dark Yellow A (Yellow) Urine Appearance Clear (Clear) Urine pH 6.0 (4.6-8.0) Ur Specific [place] 1.025 (1.005-1.030) Urine Protein 30 (Negative) Urine Glucose (UA) Negative (Negative) mg/dL Urine Ketones Trace A (Negative) Urine Blood Trace (Negative) Urine Nitrite Negative (Negative) Urine Bilirubin Negative (Negative) Urine Urobilinogen 1.0 A (0.2) mg/dL Ur Leukocyte Esterase Negative (Negative) U Hyaline Cast (Auto) NONE SEEN (0-2) /LPF Urine Microscopic RBC 11-20 A (0-5) /HPF Urine Microscopic WBC 3-5 (0-5) /HPF Ur Epithelial Cells Few (None Seen) /HPF Urine Bacteria Rare A (None Seen) /HPF Urine Culture Reflexed YES (NO) Influenza Type A Ag NEGATIVE (NEGATIVE) Influenza Type B Ag NEGATIVE (NEGATIVE) RSV (PCR) NEGATIVE (NEGATIVE) SARS-CoV-2 (PCR) NEGATIVE (NEGATIVE) 06/05/24 06/05/24 06/05/24 Range/Units 04:35 04:35 04:35 WBC (3.98-10.04) x10^3/uL RBC (3.93-5.22) x10^6/uL Hgb (11.2-15.7) g/dL Hct (34.1-44.9) % MCV (79.4-94.8) fL MCH (25.6-32.2) pg MCHC (32.2-35.5) g/dL RDW (11.7-14.4) % Plt Count (182-369) x10^3/uL MPV (9.4-12.3) fL Gran % (34.0-71.1) % Immature Gran % (Auto) (0.001-0.429) % Nucleat RBC Rel Count (0.00-0.2) % Eos # (Auto) (0.04-0.36) x10^3/uL Immature Gran # (Auto) (0.001-0.031) x10^3u/L Absolute Lymphs (auto) (1.18-3.74) x10^3/uL Absolute Monos (auto) (0.24-0.86) x10^3/uL Absolute Nucleated RBC (0.00-0.012) x10^3u/L Lymphocytes % (19.3-51.7) % Monocytes % (4.7-12.5) % Eosinophils % (0.7-5.8) % Basophils % (0.1-1.2) % Absolute Granulocytes (1.56-6.13) x10^3/uL Basophils # (0.01-0.08) x10^3/uL D-Dimer 0.73 H* (0.0-0.50) mg/L Sodium 139 (135-145) mmol/L Potassium 3.7 (3.5-5.1) mmol/L Chloride 100 (98-107) mmol/L Carbon Dioxide 27 (22-30) mmol/L Anion Gap 15.6 H (5-15) MEQ/L BUN 13 (7-17) mg/dL Creatinine 0.63 (0.52-1.04) mg/dL Estimated GFR 104.7 ML/MIN Glucose 103 (74-106) mg/dL Calcium 9.3 (8.4-10.2) mg/dL Total Bilirubin 0.40 (0.2-1.3) mg/dL AST 63 H (14-36) U/L ALT 31 (0-35) U/L Alkaline Phosphatase 96 (38-126) U/L Creatine Kinase (30-135) U/L Troponin I < 0.012 (0.000-0.033) ng/mL NT-Pro-B Natriuret Pep (<300) pg/mL Serum Total Protein 7.4 (6.3-8.2) g/dL Albumin 4.4 (3.5-5.0) g/dL Lipase 95 (23-300) U/L Urine Color (Yellow) Urine Appearance (Clear) Urine pH (4.6-8.0) Ur Specific [place] (1.005-1.030) Urine Protein (Negative) Urine Glucose (UA) (Negative) mg/dL Urine Ketones (Negative) Urine Blood (Negative) Urine Nitrite (Negative) Urine Bilirubin (Negative) Urine Urobilinogen (0.2) mg/dL Ur Leukocyte Esterase (Negative) U Hyaline Cast (Auto) (0-2) /LPF Urine Microscopic RBC (0-5) /HPF Urine Microscopic WBC (0-5) /HPF Ur Epithelial Cells (None Seen) /HPF Urine Bacteria (None Seen) /HPF Urine Culture Reflexed (NO) Influenza Type A Ag (NEGATIVE) Influenza Type B Ag (NEGATIVE) RSV (PCR) (NEGATIVE) SARS-CoV-2 (PCR) (NEGATIVE) 06/05/24 06/05/24 06/05/24 Range/Units 04:53 04:53 07:18 WBC (3.98-10.04) x10^3/uL RBC (3.93-5.22) x10^6/uL Hgb (11.2-15.7) g/dL Hct (34.1-44.9) % MCV (79.4-94.8) fL MCH (25.6-32.2) pg MCHC (32.2-35.5) g/dL RDW (11.7-14.4) % Plt Count (182-369) x10^3/uL MPV (9.4-12.3) fL Gran % (34.0-71.1) % Immature Gran % (Auto) (0.001-0.429) % Nucleat RBC Rel Count (0.00-0.2) % Eos # (Auto) (0.04-0.36) x10^3/uL Immature Gran # (Auto) (0.001-0.031) x10^3u/L Absolute Lymphs (auto) (1.18-3.74) x10^3/uL Absolute Monos (auto) (0.24-0.86) x10^3/uL Absolute Nucleated RBC (0.00-0.012) x10^3u/L Lymphocytes % (19.3-51.7) % Monocytes % (4.7-12.5) % Eosinophils % (0.7-5.8) % Basophils % (0.1-1.2) % Absolute Granulocytes (1.56-6.13) x10^3/uL Basophils # (0.01-0.08) x10^3/uL D-Dimer (0.0-0.50) mg/L Sodium (135-145) mmol/L Potassium (3.5-5.1) mmol/L Chloride (98-107) mmol/L Carbon Dioxide (22-30) mmol/L Anion Gap (5-15) MEQ/L BUN (7-17) mg/dL Creatinine (0.52-1.04) mg/dL Estimated GFR ML/MIN Glucose (74-106) mg/dL Calcium (8.4-10.2) mg/dL Total Bilirubin (0.2-1.3) mg/dL AST (14-36) U/L ALT (0-35) U/L Alkaline Phosphatase (38-126) U/L Creatine Kinase 229 H (30-135) U/L Troponin I < 0.012 (0.000-0.033) ng/mL NT-Pro-B Natriuret Pep 27.2 (<300) pg/mL Serum Total Protein (6.3-8.2) g/dL Albumin (3.5-5.0) g/dL Lipase (23-300) U/L Urine Color (Yellow) Urine Appearance (Clear) Urine pH (4.6-8.0) Ur Specific [place] (1.005-1.030) Urine Protein (Negative) Urine Glucose (UA) (Negative) mg/dL Urine Ketones (Negative) Urine Blood (Negative) Urine Nitrite (Negative) Urine Bilirubin (Negative) Urine Urobilinogen (0.2) mg/dL Ur Leukocyte Esterase (Negative) U Hyaline Cast (Auto) (0-2) /LPF Urine Microscopic RBC (0-5) /HPF Urine Microscopic WBC (0-5) /HPF Ur Epithelial Cells (None Seen) /HPF Urine Bacteria (None Seen) /HPF Urine Culture Reflexed (NO) Influenza Type A Ag (NEGATIVE) Influenza Type B Ag (NEGATIVE) RSV (PCR) (NEGATIVE) SARS-CoV-2 (PCR) (NEGATIVE) - Radiology Impressions Radiology Exams & Impressions: Radiology Procedures Category Date Time Status ABDOMEN AND PELVIS W/0 CONTRAS [CT] Stat Exams 06/05/24 03:40 Completed CHEST 1 VIEW (PORTABLE) Stat Exams 06/05/24 03:39 Completed PULMONARY PERF VENTILATION [NUCMED] Stat Exams 06/05/24 10:27 Ordered - Other Procedures and Tests Respiratory Therapy 06/05/24 04:17 Respiratory Therapy Assessment DAILY Assessment/Plan (1) Acute respiratory failure with hypoxia Current Visit: Yes Status: Acute Assessment & Plan: -CXR reviewed and negative for acute findings -DDimer elevated at 0.73 - will obtain VQ as pt is allergic to IVP Dye -Supplemental oxygen with goal spo2 > 91% - currently on 4L - baseline RA -Solumedrol given in ED - will continue at 40mg BID -Ceftriaxone and azithromycin given in ED - will continue -lovenox -RT eval and follow -DuoNebs/INH -ABG if significant lethargy/hypoxia Code(s): J96.01 - ACUTE RESPIRATORY FAILURE WITH HYPOXIA (2) Acute bronchitis Current Visit: Yes Status: Acute Assessment & Plan: -see ARF Code(s): J20.9 - ACUTE BRONCHITIS, UNSPECIFIED (3) Abnormal CT of the abdomen Current Visit: Yes Status: Acute Assessment & Plan: -CT abdomen demonstrating enlarged liver, cholelithiasis, right nephrolithiasis, right kidney angiomyolipoma, diverticulosis, intra-abdominal lymphadenopathy - will need follow up as OP Code(s): R93.5 - ABN FINDINGS ON DX IMAGING OF ABD REGIONS, INC RETROPERITON (4) HLD (hyperlipidemia) Current Visit: Yes Status: Acute Assessment & Plan: -Not on home statin - continue lifestyle changes VTE Lovenox PPI: Protonix Dispo: 1-2 days Code status: full code Code(s): E78.5 - HYPERLIPIDEMIA, UNSPECIFIED <WILEY CROOK - Last Filed: 06/05/24 19:00> History of Present Illness - Chief Complaint History of Present Illness: is a 53 year old female. - Physical Exam Vital Signs: Vital Signs - 24 hr Temp Pulse Resp BP BP Pulse Ox 06/05/24 18:41 66 18 98 06/05/24 16:00 97.6 F 74 18 108/63 93 L 06/05/24 13:23 74 18 95 06/05/24 11:57 78 18 128/70 94 L 06/05/24 09:49 93 L 06/05/24 09:47 98.3 F 69 18 127/70 95 06/05/24 08:01 98.3 F 69 18 127/70 95 06/05/24 07:50 93 L 06/05/24 07:30 112/60 95 06/05/24 07:00 115/69 91 L 06/05/24 06:30 108/69 95 06/05/24 06:01 126/77 93 L 06/05/24 05:30 101/60 95 06/05/24 05:00 129/66 95 06/05/24 04:31 128/83 97 06/05/24 04:25 83 22 96 06/05/24 04:00 116/73 97 06/05/24 03:56 114/76 91 L 06/05/24 03:34 91 L 06/05/24 03:31 133/94 92 L 06/05/24 03:00 128/74 90 L 06/05/24 02:53 97.4 F 74 22 141/77 93 L Results - Labs Lab/Micro Results: Lab Results-Last 24 Hours 06/05/24 06/05/24 06/05/24 Range/Units 03:47 04:31 04:35 WBC 4.6 (3.98-10.04) x10^3/uL RBC 5.42 H (3.93-5.22) x10^6/uL Hgb 14.8 (11.2-15.7) g/dL Hct 45.5 H (34.1-44.9) % MCV 83.9 (79.4-94.8) fL MCH 27.3 (25.6-32.2) pg MCHC 32.5 (32.2-35.5) g/dL RDW 14.6 H (11.7-14.4) % Plt Count 314 (182-369) x10^3/uL MPV 8.7 L (9.4-12.3) fL Gran % 47.8 (34.0-71.1) % Immature Gran % (Auto) 0.7 H (0.001-0.429) % Nucleat RBC Rel Count 0.0 (0.00-0.2) % Eos # (Auto) 0.02 L (0.04-0.36) x10^3/uL Immature Gran # (Auto) 0.03 (0.001-0.031) x10^3u/L Absolute Lymphs (auto) 1.42 (1.18-3.74) x10^3/uL Absolute Monos (auto) 0.89 H (0.24-0.86) x10^3/uL Absolute Nucleated RBC 0.00 (0.00-0.012) x10^3u/L Lymphocytes % 31.0 (19.3-51.7) % Monocytes % 19.4 H (4.7-12.5) % Eosinophils % 0.4 L (0.7-5.8) % Basophils % 0.7 (0.1-1.2) % Absolute Granulocytes 2.19 (1.56-6.13) x10^3/uL Basophils # 0.03 (0.01-0.08) x10^3/uL D-Dimer (0.0-0.50) mg/L Sodium (135-145) mmol/L Potassium (3.5-5.1) mmol/L Chloride (98-107) mmol/L Carbon Dioxide (22-30) mmol/L Anion Gap (5-15) MEQ/L BUN (7-17) mg/dL Creatinine (0.52-1.04) mg/dL Estimated GFR ML/MIN Glucose (74-106) mg/dL Calcium (8.4-10.2) mg/dL Total Bilirubin (0.2-1.3) mg/dL AST (14-36) U/L ALT (0-35) U/L Alkaline Phosphatase (38-126) U/L Creatine Kinase (30-135) U/L Troponin I (0.000-0.033) ng/mL NT-Pro-B Natriuret Pep (<300) pg/mL Serum Total Protein (6.3-8.2) g/dL Albumin (3.5-5.0) g/dL Lipase (23-300) U/L Urine Color Dark Yellow A (Yellow) Urine Appearance Clear (Clear) Urine pH 6.0 (4.6-8.0) Ur Specific [place] 1.025 (1.005-1.030) Urine Protein 30 (Negative) Urine Glucose (UA) Negative (Negative) mg/dL Urine Ketones Trace A (Negative) Urine Blood Trace (Negative) Urine Nitrite Negative (Negative) Urine Bilirubin Negative (Negative) Urine Urobilinogen 1.0 A (0.2) mg/dL Ur Leukocyte Esterase Negative (Negative) U Hyaline Cast (Auto) NONE SEEN (0-2) /LPF Urine Microscopic RBC 11-20 A (0-5) /HPF Urine Microscopic WBC 3-5 (0-5) /HPF Ur Epithelial Cells Few (None Seen) /HPF Urine Bacteria Rare A (None Seen) /HPF Urine Culture Reflexed YES (NO) Influenza Type A Ag NEGATIVE (NEGATIVE) Influenza Type B Ag NEGATIVE (NEGATIVE) RSV (PCR) NEGATIVE (NEGATIVE) SARS-CoV-2 (PCR) NEGATIVE (NEGATIVE) 06/05/24 06/05/24 06/05/24 Range/Units 04:35 04:35 04:35 WBC (3.98-10.04) x10^3/uL RBC (3.93-5.22) x10^6/uL Hgb (11.2-15.7) g/dL Hct (34.1-44.9) % MCV (79.4-94.8) fL MCH (25.6-32.2) pg MCHC (32.2-35.5) g/dL RDW (11.7-14.4) % Plt Count (182-369) x10^3/uL MPV (9.4-12.3) fL Gran % (34.0-71.1) % Immature Gran % (Auto) (0.001-0.429) % Nucleat RBC Rel Count (0.00-0.2) % Eos # (Auto) (0.04-0.36) x10^3/uL Immature Gran # (Auto) (0.001-0.031) x10^3u/L Absolute Lymphs (auto) (1.18-3.74) x10^3/uL Absolute Monos (auto) (0.24-0.86) x10^3/uL Absolute Nucleated RBC (0.00-0.012) x10^3u/L Lymphocytes % (19.3-51.7) % Monocytes % (4.7-12.5) % Eosinophils % (0.7-5.8) % Basophils % (0.1-1.2) % Absolute Granulocytes (1.56-6.13) x10^3/uL Basophils # (0.01-0.08) x10^3/uL D-Dimer 0.73 H* (0.0-0.50) mg/L Sodium 139 (135-145) mmol/L Potassium 3.7 (3.5-5.1) mmol/L Chloride 100 (98-107) mmol/L Carbon Dioxide 27 (22-30) mmol/L Anion Gap 15.6 H (5-15) MEQ/L BUN 13 (7-17) mg/dL Creatinine 0.63 (0.52-1.04) mg/dL Estimated GFR 104.7 ML/MIN Glucose 103 (74-106) mg/dL Calcium 9.3 (8.4-10.2) mg/dL Total Bilirubin 0.40 (0.2-1.3) mg/dL AST 63 H (14-36) U/L ALT 31 (0-35) U/L Alkaline Phosphatase 96 (38-126) U/L Creatine Kinase (30-135) U/L Troponin I < 0.012 (0.000-0.033) ng/mL NT-Pro-B Natriuret Pep (<300) pg/mL Serum Total Protein 7.4 (6.3-8.2) g/dL Albumin 4.4 (3.5-5.0) g/dL Lipase 95 (23-300) U/L Urine Color (Yellow) Urine Appearance (Clear) Urine pH (4.6-8.0) Ur Specific [place] (1.005-1.030) Urine Protein (Negative) Urine Glucose (UA) (Negative) mg/dL Urine Ketones (Negative) Urine Blood (Negative) Urine Nitrite (Negative) Urine Bilirubin (Negative) Urine Urobilinogen (0.2) mg/dL Ur Leukocyte Esterase (Negative) U Hyaline Cast (Auto) (0-2) /LPF Urine Microscopic RBC (0-5) /HPF Urine Microscopic WBC (0-5) /HPF Ur Epithelial Cells (None Seen) /HPF Urine Bacteria (None Seen) /HPF Urine Culture Reflexed (NO) Influenza Type A Ag (NEGATIVE) Influenza Type B Ag (NEGATIVE) RSV (PCR) (NEGATIVE) SARS-CoV-2 (PCR) (NEGATIVE) 06/05/24 06/05/24 06/05/24 Range/Units 04:53 04:53 07:18 WBC (3.98-10.04) x10^3/uL RBC (3.93-5.22) x10^6/uL Hgb (11.2-15.7) g/dL Hct (34.1-44.9) % MCV (79.4-94.8) fL MCH (25.6-32.2) pg MCHC (32.2-35.5) g/dL RDW (11.7-14.4) % Plt Count (182-369) x10^3/uL MPV (9.4-12.3) fL Gran % (34.0-71.1) % Immature Gran % (Auto) (0.001-0.429) % Nucleat RBC Rel Count (0.00-0.2) % Eos # (Auto) (0.04-0.36) x10^3/uL Immature Gran # (Auto) (0.001-0.031) x10^3u/L Absolute Lymphs (auto) (1.18-3.74) x10^3/uL Absolute Monos (auto) (0.24-0.86) x10^3/uL Absolute Nucleated RBC (0.00-0.012) x10^3u/L Lymphocytes % (19.3-51.7) % Monocytes % (4.7-12.5) % Eosinophils % (0.7-5.8) % Basophils % (0.1-1.2) % Absolute Granulocytes (1.56-6.13) x10^3/uL Basophils # (0.01-0.08) x10^3/uL D-Dimer (0.0-0.50) mg/L Sodium (135-145) mmol/L Potassium (3.5-5.1) mmol/L Chloride (98-107) mmol/L Carbon Dioxide (22-30) mmol/L Anion Gap (5-15) MEQ/L BUN (7-17) mg/dL Creatinine (0.52-1.04) mg/dL Estimated GFR ML/MIN Glucose (74-106) mg/dL Calcium (8.4-10.2) mg/dL Total Bilirubin (0.2-1.3) mg/dL AST (14-36) U/L ALT (0-35) U/L Alkaline Phosphatase (38-126) U/L Creatine Kinase 229 H (30-135) U/L Troponin I < 0.012 (0.000-0.033) ng/mL NT-Pro-B Natriuret Pep 27.2 (<300) pg/mL Serum Total Protein (6.3-8.2) g/dL Albumin (3.5-5.0) g/dL Lipase (23-300) U/L Urine Color (Yellow) Urine Appearance (Clear) Urine pH (4.6-8.0) Ur Specific [place] (1.005-1.030) Urine Protein (Negative) Urine Glucose (UA) (Negative) mg/dL Urine Ketones (Negative) Urine Blood (Negative) Urine Nitrite (Negative) Urine Bilirubin (Negative) Urine Urobilinogen (0.2) mg/dL Ur Leukocyte Esterase (Negative) U Hyaline Cast (Auto) (0-2) /LPF Urine Microscopic RBC (0-5) /HPF Urine Microscopic WBC (0-5) /HPF Ur Epithelial Cells (None Seen) /HPF Urine Bacteria (None Seen) /HPF Urine Culture Reflexed (NO) Influenza Type A Ag (NEGATIVE) Influenza Type B Ag (NEGATIVE) RSV (PCR) (NEGATIVE) SARS-CoV-2 (PCR) (NEGATIVE) 06/05/24 Range/Units 12:11 WBC (3.98-10.04) x10^3/uL RBC (3.93-5.22) x10^6/uL Hgb (11.2-15.7) g/dL Hct (34.1-44.9) % MCV (79.4-94.8) fL MCH (25.6-32.2) pg MCHC (32.2-35.5) g/dL RDW (11.7-14.4) % Plt Count (182-369) x10^3/uL MPV (9.4-12.3) fL Gran % (34.0-71.1) % Immature Gran % (Auto) (0.001-0.429) % Nucleat RBC Rel Count (0.00-0.2) % Eos # (Auto) (0.04-0.36) x10^3/uL Immature Gran # (Auto) (0.001-0.031) x10^3u/L Absolute Lymphs (auto) (1.18-3.74) x10^3/uL Absolute Monos (auto) (0.24-0.86) x10^3/uL Absolute Nucleated RBC (0.00-0.012) x10^3u/L Lymphocytes % (19.3-51.7) % Monocytes % (4.7-12.5) % Eosinophils % (0.7-5.8) % Basophils % (0.1-1.2) % Absolute Granulocytes (1.56-6.13) x10^3/uL Basophils # (0.01-0.08) x10^3/uL D-Dimer (0.0-0.50) mg/L Sodium (135-145) mmol/L Potassium (3.5-5.1) mmol/L Chloride (98-107) mmol/L Carbon Dioxide (22-30) mmol/L Anion Gap (5-15) MEQ/L BUN (7-17) mg/dL Creatinine (0.52-1.04) mg/dL Estimated GFR ML/MIN Glucose (74-106) mg/dL Calcium (8.4-10.2) mg/dL Total Bilirubin (0.2-1.3) mg/dL AST (14-36) U/L ALT (0-35) U/L Alkaline Phosphatase (38-126) U/L Creatine Kinase (30-135) U/L Troponin I < 0.012 (0.000-0.033) ng/mL NT-Pro-B Natriuret Pep (<300) pg/mL Serum Total Protein (6.3-8.2) g/dL Albumin (3.5-5.0) g/dL Lipase (23-300) U/L Urine Color (Yellow) Urine Appearance (Clear) Urine pH (4.6-8.0) Ur Specific [place] (1.005-1.030) Urine Protein (Negative) Urine Glucose (UA) (Negative) mg/dL Urine Ketones (Negative) Urine Blood (Negative) Urine Nitrite (Negative) Urine Bilirubin (Negative) Urine Urobilinogen (0.2) mg/dL Ur Leukocyte Esterase (Negative) U Hyaline Cast (Auto) (0-2) /LPF Urine Microscopic RBC (0-5) /HPF Urine Microscopic WBC (0-5) /HPF Ur Epithelial Cells (None Seen) /HPF Urine Bacteria (None Seen) /HPF Urine Culture Reflexed (NO) Influenza Type A Ag (NEGATIVE) Influenza Type B Ag (NEGATIVE) RSV (PCR) (NEGATIVE) SARS-CoV-2 (PCR) (NEGATIVE) - Radiology Impressions Radiology Exams & Impressions: Radiology Procedures Category Date Time Status ABDOMEN AND PELVIS W/0 CONTRAS [CT] Stat Exams 06/05/24 03:40 Completed CHEST 1 VIEW (PORTABLE) Stat Exams 06/05/24 03:39 Completed CHEST 2 VIEWS (PA AND LAT) Routine Exams 06/05/24 14:31 Completed PULMONARY PERF PARTICULATE [NUCMED] Stat Exams 06/05/24 10:27 Completed - Other Procedures and Tests Respiratory Therapy 06/05/24 04:17 Respiratory Therapy Assessment DAILY 06/05/24 12:49 Incentive Spirometry UD 06/05/24 13:18 Oxygen Nasal Cannula 2 lpm GENET Encounter - GENET Encounter Attestation GENET Encounter Attestation: "IhavepersonallyseenandMiguelina,ZOHAIB URENA andhavediscussed pertinent aspects of their care with Christopher Esquivel agree with the history, physical exam (any modifications based on my personal exam will be noted below), assessment, and plan as outlined in original note. Please see immediately below for my summary of findings and additional assessment and plan along with any meaningful corrections/explanations to the Subjective/Objective portions of the GENET note will be noted." My portion of the encounter took place via telemedicine. -Acute bronchitis with hypoxia, likely due to undiagnosed COPD with exacerbation. Patient is a chronic smoker. Will treat with oxygen support, steroids, nebs. Anticipate discharge home tomorrow.
[2024-06-05] MEDS ORDERED: Robitussin AC Syrup Unit Dose Cup PO PRN (12:49)
[2024-06-05] MEDS: DUONEB 0.5-3 MG/3 ml Neb IH SCH (13:20)
--- NOTE | 2024-06-05 15:56 | XRAY ---
Indication: Nuclear medicine VQ scan protocol. Short of breath. Comparison: Taken earlier in the day. PA/lateral chest unchanged again demonstrating scattered pulmonary, mediastinal, and hilar calcified granulomas. Heart not enlarged. No new/acute cardiopulmonary debilities.
--- NOTE | 2024-06-05 16:10 | XRAY ---
Indication: Worsening short of breath 1 week. Status post influenza. Comparison: None Patient received 5.4 mCi technetium 99 MAA for the perfusion portion of the exam. Multiple planar images obtained. Ventilation exam not performed due to "faulty ventilation kit." Perfusion images demonstrates bilaterally homogeneous radiopharmaceutical activity. Specifically no segmental/subsegmental perfusion defects. Impression: Normal nuclear medicine perfusion scan.
[2024-06-05] MEDS: TYLENOL 325 MG PO PRN (16:12)
[2024-06-05] MEDS: HYDROCODONE-CHLORPHEN ER SUSP PO PRN (16:27)
[2024-06-05] MEDS: Nicoderm CQ 21 MG TOP SCH (19:17)
[2024-06-05] MEDS: solu-MEDROL 40 MG, Sterile H2O 10 ml 1 ML IV SCH (23:18)
[2024-06-06 05:14] LABS: Absolute Neutrophil Ct (ANC) 6.81 x10^3/uL (1.56-6.13); BASOPHIL % 0.1 % (0.1-1.2); Basophil (Absolute #) 0.01 x10^3/uL (0.01-0.08); Eosinophil (Absolute #) 0 x10^3/uL (0.04-0.36); Hematocrit 36.8 % (34.1-44.9); Hemoglobin 11.5 g/dL (11.2-15.7); IMMATURE GRAN # 0.03 x10^3u/L (0.001-0.031); IMMATURE GRAN % 0.4 % (0.001-0.429); Lymphocyte (Absolute #) 1.14 x10^3/uL (1.18-3.74); Lymphocytes % 13.3 % (19.3-51.7); Mean Cell Volume 86.4 fL (79.4-94.8); Mean Corpuscular Hgb Concent. 31.3 g/dL (32.2-35.5); Mean Platelet Volume 8.9 fL (9.4-12.3); Monocyte (Absolute #) 0.55 x10^3/uL (0.24-0.86); Monocytes % 6.4 % (4.7-12.5); Neutrophil % 79.8 % (34.0-71.1); Platelet Count 289 x10^3/uL (182-369); Red Blood Count 4.26 x10^6/uL (3.93-5.22); Red Cell Distribution Width 14.7 % (11.7-14.4); White Blood Count 8.5 x10^3/uL (3.98-10.04)
[2024-06-06 05:27] LABS: ALBUMIN 3.8 g/dL (3.5-5.0); ANION GAP 11.8 MEQ/L (5-15); BILIRUBIN,TOTAL 0.3 mg/dL (0.2-1.3); Calcium 8.7 mg/dL (8.4-10.2); Creatinine 1 0.56 mg/dL (0.52-1.04); EST GLOMERULAR FILTRATION RATE 107.7 ML/MIN; Potassium 4.3 mmol/L (3.5-5.1); Total Protein 6.6 g/dL (6.3-8.2)
--- NOTE | 2024-06-06 05:31 | PCM.NOTE ---
Date and Time: 06/06/24 0531 Subjective Assessment: is a 53 year old female with a pmhx of tobacco abuse and HLD who presented to ED 06/05/24 with complaints of fever, nausea, vomiting, cough, and dyspnea. Patient reports onset of symptoms 06/01/24. She has been unable to tolerate a diet and feels very weak. She has been febrile with TMax of 103 (S aturday).Cough is productive with yellow sputum. Dyspnea worse with exertion. Denies recent sick contacts. Denies cp, abdominal pain, RANDLE, or dizziness. Upon arrival to ED patient hypoxic. Patient placed on 4L [place]. EKG NS. CT abdomen demonstrating enlarged liver, cholelithiasis, right nephrolithiasis, right kidney angiomyolipoma, diverticulosis, intra-abdominal lymphadenopathy. CXR with no acute findings. VQ scan negative. DDimer elevated (VQ scan ordered). Initial lab findings unremarkable. Respiratory viral panel negative. Patient received Ceftriaxone/azithromycin, DuoNebs, solumedrol in ED. Admit for acute respiratory failure with hypoxia. 06/06/24: Met with patient bedside. Endorses some improvement of dyspnea and cough but does not feel ready for discharge. VQ scan negative. Continue solumedrol and abx. - Review of Systems Constitutional: Weakness Eyes: No Symptoms Ears, Nose, & Throat: No Symptoms Respiratory: Orthopnea, Short Of Breath, Wheezing Cardiac: No Symptoms Abdominal/Gastrointestinal: No Symptoms Genitourinary Symptoms: No Symptoms Musculoskeletal: No Symptoms Skin: No Symptoms Neurological: No Symptoms Psychological: No Symptoms Endocrine: No Symptoms Hematologic/Lymphatic: No Symptoms Immunological/Allergic: No Symptoms Objective Exam General Appearance: no apparent distress Neurologic Exam: alert, oriented x 3, cooperative Skin Exam: normal color Eye Exam: PERRL Ears, Nose, Throat Exam: normal ENT inspection Neck Exam: normal inspection Respiratory Exam: crackles/rales, wheezing Cardiovascular Exam: regular rate/rhythm, normal heart sounds Gastrointestinal/Abdomen Exam: soft, normal bowel sounds Extremity Exam: normal inspection Back Exam: normal inspection Pelvic Exam: deferred Rectal Exam: deferred Objective Data Vital Signs: Vital Signs - 24 hr Temp Pulse Resp BP BP Pulse Ox 06/06/24 04:00 97.8 F 63 21 117/68 97 06/06/24 00:00 97.7 F 66 24 121/59 92 L 06/05/24 20:00 97.2 F 66 18 101/56 93 L 06/05/24 18:41 66 18 98 06/05/24 16:00 97.6 F 74 18 108/63 93 L 06/05/24 13:23 74 18 95 06/05/24 11:57 78 18 128/70 94 L 06/05/24 09:49 93 L 06/05/24 09:47 98.3 F 69 18 127/70 95 06/05/24 08:01 98.3 F 69 18 127/70 95 06/05/24 07:50 93 L 06/05/24 07:30 112/60 95 06/05/24 07:00 115/69 91 L 06/05/24 06:30 108/69 95 06/05/24 06:01 126/77 93 L Pain Assessment - Last Documented Pain Intensity 0 Pain Scale Used [facility] Intake and Output: Intake & Output 06/03/24 06/04/24 06/05/24 06/06/24 11:59 11:59 11:59 11:59 Intake Total 120 1783 Output Total 600 Balance 120 1183 Weight 79.9 kg Lab Results: Lab Results-Last 24 Hours 06/05/24 06/05/24 06/05/24 Range/Units 03:47 04:53 04:53 WBC (3.98-10.04) x10^3/uL RBC (3.93-5.22) x10^6/uL Hgb (11.2-15.7) g/dL Hct (34.1-44.9) % MCV (79.4-94.8) fL MCH (25.6-32.2) pg MCHC (32.2-35.5) g/dL RDW (11.7-14.4) % Plt Count (182-369) x10^3/uL MPV (9.4-12.3) fL Gran % (34.0-71.1) % Immature Gran % (Auto) (0.001-0.429) % Nucleat RBC Rel Count (0.00-0.2) % Eos # (Auto) (0.04-0.36) x10^3/uL Immature Gran # (Auto) (0.001-0.031) x10^3u/L Absolute Lymphs (auto) (1.18-3.74) x10^3/uL Absolute Monos (auto) (0.24-0.86) x10^3/uL Absolute Nucleated RBC (0.00-0.012) x10^3u/L Lymphocytes % (19.3-51.7) % Monocytes % (4.7-12.5) % Eosinophils % (0.7-5.8) % Basophils % (0.1-1.2) % Absolute Granulocytes (1.56-6.13) x10^3/uL Basophils # (0.01-0.08) x10^3/uL Sodium (135-145) mmol/L Potassium (3.5-5.1) mmol/L Chloride (98-107) mmol/L Carbon Dioxide (22-30) mmol/L Anion Gap (5-15) MEQ/L BUN (7-17) mg/dL Creatinine (0.52-1.04) mg/dL Estimated GFR ML/MIN Glucose (74-106) mg/dL Calcium (8.4-10.2) mg/dL Total Bilirubin (0.2-1.3) mg/dL AST (14-36) U/L ALT (0-35) U/L Alkaline Phosphatase (38-126) U/L Creatine Kinase 229 H (30-135) U/L Troponin I (0.000-0.033) ng/mL NT-Pro-B Natriuret Pep 27.2 (<300) pg/mL Serum Total Protein (6.3-8.2) g/dL Albumin (3.5-5.0) g/dL Influenza Type A Ag NEGATIVE (NEGATIVE) Influenza Type B Ag NEGATIVE (NEGATIVE) RSV (PCR) NEGATIVE (NEGATIVE) SARS-CoV-2 (PCR) NEGATIVE (NEGATIVE) 06/05/24 06/05/24 06/05/24 Range/Units 07:18 12:11 18:30 WBC (3.98-10.04) x10^3/uL RBC (3.93-5.22) x10^6/uL Hgb (11.2-15.7) g/dL Hct (34.1-44.9) % MCV (79.4-94.8) fL MCH (25.6-32.2) pg MCHC (32.2-35.5) g/dL RDW (11.7-14.4) % Plt Count (182-369) x10^3/uL MPV (9.4-12.3) fL Gran % (34.0-71.1) % Immature Gran % (Auto) (0.001-0.429) % Nucleat RBC Rel Count (0.00-0.2) % Eos # (Auto) (0.04-0.36) x10^3/uL Immature Gran # (Auto) (0.001-0.031) x10^3u/L Absolute Lymphs (auto) (1.18-3.74) x10^3/uL Absolute Monos (auto) (0.24-0.86) x10^3/uL Absolute Nucleated RBC (0.00-0.012) x10^3u/L Lymphocytes % (19.3-51.7) % Monocytes % (4.7-12.5) % Eosinophils % (0.7-5.8) % Basophils % (0.1-1.2) % Absolute Granulocytes (1.56-6.13) x10^3/uL Basophils # (0.01-0.08) x10^3/uL Sodium (135-145) mmol/L Potassium (3.5-5.1) mmol/L Chloride (98-107) mmol/L Carbon Dioxide (22-30) mmol/L Anion Gap (5-15) MEQ/L BUN (7-17) mg/dL Creatinine (0.52-1.04) mg/dL Estimated GFR ML/MIN Glucose (74-106) mg/dL Calcium (8.4-10.2) mg/dL Total Bilirubin (0.2-1.3) mg/dL AST (14-36) U/L ALT (0-35) U/L Alkaline Phosphatase (38-126) U/L Creatine Kinase (30-135) U/L Troponin I < 0.012 < 0.012 < 0.012 (0.000-0.033) ng/mL NT-Pro-B Natriuret Pep (<300) pg/mL Serum Total Protein (6.3-8.2) g/dL Albumin (3.5-5.0) g/dL Influenza Type A Ag (NEGATIVE) Influenza Type B Ag (NEGATIVE) RSV (PCR) (NEGATIVE) SARS-CoV-2 (PCR) (NEGATIVE) 06/06/24 06/06/24 Range/Units 04:45 04:45 WBC 8.5 (3.98-10.04) x10^3/uL RBC 4.26 (3.93-5.22) x10^6/uL Hgb 11.5 D (11.2-15.7) g/dL Hct 36.8 (34.1-44.9) % MCV 86.4 (79.4-94.8) fL MCH 27.0 (25.6-32.2) pg MCHC 31.3 L (32.2-35.5) g/dL RDW 14.7 H (11.7-14.4) % Plt Count 289 (182-369) x10^3/uL MPV 8.9 L (9.4-12.3) fL Gran % 79.8 H (34.0-71.1) % Immature Gran % (Auto) 0.4 (0.001-0.429) % Nucleat RBC Rel Count 0.0 (0.00-0.2) % Eos # (Auto) 0 L (0.04-0.36) x10^3/uL Immature Gran # (Auto) 0.03 (0.001-0.031) x10^3u/L Absolute Lymphs (auto) 1.14 L (1.18-3.74) x10^3/uL Absolute Monos (auto) 0.55 (0.24-0.86) x10^3/uL Absolute Nucleated RBC 0.00 (0.00-0.012) x10^3u/L Lymphocytes % 13.3 L (19.3-51.7) % Monocytes % 6.4 (4.7-12.5) % Eosinophils % 0.0 L (0.7-5.8) % Basophils % 0.1 (0.1-1.2) % Absolute Granulocytes 6.81 H (1.56-6.13) x10^3/uL Basophils # 0.01 (0.01-0.08) x10^3/uL Sodium 141 (135-145) mmol/L Potassium 4.3 (3.5-5.1) mmol/L Chloride 104 (98-107) mmol/L Carbon Dioxide 29 (22-30) mmol/L Anion Gap 11.8 (5-15) MEQ/L BUN 14 (7-17) mg/dL Creatinine 0.56 (0.52-1.04) mg/dL Estimated GFR 107.7 ML/MIN Glucose 144 H (74-106) mg/dL Calcium 8.7 (8.4-10.2) mg/dL Total Bilirubin 0.30 (0.2-1.3) mg/dL AST 43 H (14-36) U/L ALT 27 (0-35) U/L Alkaline Phosphatase 75 (38-126) U/L Creatine Kinase (30-135) U/L Troponin I (0.000-0.033) ng/mL NT-Pro-B Natriuret Pep (<300) pg/mL Serum Total Protein 6.6 (6.3-8.2) g/dL Albumin 3.8 (3.5-5.0) g/dL Influenza Type A Ag (NEGATIVE) Influenza Type B Ag (NEGATIVE) RSV (PCR) (NEGATIVE) SARS-CoV-2 (PCR) (NEGATIVE) Radiology Exams: Radiology Procedures Category Date Time Status ABDOMEN AND PELVIS W/0 CONTRAS [CT] Stat Exams 06/05/24 03:40 Completed CHEST 1 VIEW (PORTABLE) Stat Exams 06/05/24 03:39 Completed CHEST 2 VIEWS (PA AND LAT) Routine Exams 06/05/24 14:31 Completed PULMONARY PERF PARTICULATE [NUCMED] Stat Exams 06/05/24 10:27 Completed Multi-Disciplinary Progress Notes: Multi-Disciplinary Progress Notes 06/06/24 01:39 Respiratory Note by Rachel Pina Pt requested not to be woke up for scheduled 1am neb tx. RT checked on pt at 0130 and pt was sleeping. Advised RN to call if pt wakes and would like her tx. Initialized on 06/06/24 01:39 - END OF NOTE Assessment/Plan (1) Acute respiratory failure with hypoxia Current Visit: Yes Status: Acute Assessment & Plan: -CXR reviewed and negative for acute findings -DDimer elevated at 0.73 - will obtain VQ as pt is allergic to IVP Dye -Supplemental oxygen with goal spo2 > 91% - currently on 4L - baseline RA -Solumedrol given in ED - will continue at 40mg BID -Ceftriaxone and azithromycin given in ED - will continue -lovenox -RT eval and follow -DuoNebs/INH -ABG if significant lethargy/hypoxia 06/06: -Titrate oxygen -Continue Nebs/solumedrol/abx -VQ scan reviewed and normal perfusion -CMP/CBC reviewed Code(s): J96.01 - ACUTE RESPIRATORY FAILURE WITH HYPOXIA (2) Acute bronchitis Current Visit: Yes Status: Acute Assessment & Plan: -see ARF Code(s): J20.9 - ACUTE BRONCHITIS, UNSPECIFIED (3) Abnormal CT of the abdomen Current Visit: Yes Status: Acute Assessment & Plan: -CT abdomen demonstrating enlarged liver, cholelithiasis, right nephrolithiasis, right kidney angiomyolipoma, diverticulosis, intra-abdominal lymphadenopathy - will need follow up as OP Code(s): R93.5 - ABN FINDINGS ON DX IMAGING OF ABD REGIONS, INC RETROPERITON (4) HLD (hyperlipidemia) Current Visit: Yes Status: Acute Assessment & Plan: -Not on home statin - continue lifestyle changes VTE Lovenox PPI: Protonix Dispo: 1-2 days Code status: full code Code(s): E78.5 - HYPERLIPIDEMIA, UNSPECIFIED Code(s): J96.01 - ACUTE RESPIRATORY FAILURE WITH HYPOXIA (2) Acute bronchitis Current Visit: Yes Status: Acute Code(s): J20.9 - ACUTE BRONCHITIS, UNSPECIFIED (3) Abnormal CT of the abdomen Current Visit: Yes Status: Acute Code(s): R93.5 - ABN FINDINGS ON DX IMAGING OF ABD REGIONS, INC RETROPERITON (4) HLD (hyperlipidemia) Current Visit: Yes Status: Acute Code(s): E78.5 - HYPERLIPIDEMIA, UNSPECIFIED
[2024-06-06] MEDS: ROCEPHIN 1 GM / 100 ML NaCl 1 GM/100 ML IVPB IV SCH (09:38)
[2024-06-06] MEDS: Zithromax 500 MG/ 250 ML NaCl Premix 500 MG/250 ML IVPB IV SCH (09:38)
[2024-06-06] MEDS: ENOXAPARIN SODIUM SQ SCH (09:39)
[2024-06-06] MEDS: Protonix 40MG Tablet PO SCH (09:39)
[2024-06-06] MEDS: ECOTRIN 81 MG PO SCH (09:39)
[2024-06-06] MEDS ORDERED: BABY ASPIRIN 81 MG CHEW PO SCH (10:00)
[2024-06-06] MEDS: Zofran 4 MG/2 ML VIAL IV PRN (11:58)
[2024-06-07] MEDS: DUONEB 0.5-3 MG/3 ml Neb IH PRN (00:03)
[2024-06-07 05:28] LABS: Absolute Neutrophil Ct (ANC) 5.09 x10^3/uL (1.56-6.13); BASOPHIL % 0.3 % (0.1-1.2); Basophil (Absolute #) 0.02 x10^3/uL (0.01-0.08); Eosinophil (Absolute #) 0 x10^3/uL (0.04-0.36); Hematocrit 35.5 % (34.1-44.9); Hemoglobin 11.2 g/dL (11.2-15.7); IMMATURE GRAN # 0.18 x10^3u/L (0.001-0.031); IMMATURE GRAN % 2.5 % (0.001-0.429); Lymphocyte (Absolute #) 1.58 x10^3/uL (1.18-3.74); Lymphocytes % 21.7 % (19.3-51.7); Mean Cell Volume 87.4 fL (79.4-94.8); Mean Corpuscular Hemoglobin 27.6 pg (25.6-32.2); Mean Corpuscular Hgb Concent. 31.5 g/dL (32.2-35.5); Mean Platelet Volume 9.3 fL (9.4-12.3); Monocyte (Absolute #) 0.41 x10^3/uL (0.24-0.86); Monocytes % 5.6 % (4.7-12.5); Neutrophil % 69.9 % (34.0-71.1); Platelet Count 293 x10^3/uL (182-369); Red Blood Count 4.06 x10^6/uL (3.93-5.22); Red Cell Distribution Width 15.2 % (11.7-14.4); White Blood Count 7.3 x10^3/uL (3.98-10.04)
[2024-06-07 05:41] LABS: ALBUMIN 3.6 g/dL (3.5-5.0); ANION GAP 12.8 MEQ/L (5-15); BILIRUBIN,TOTAL 0.3 mg/dL (0.2-1.3); Calcium 8.6 mg/dL (8.4-10.2); Creatinine 1 0.43 mg/dL (0.52-1.04); EST GLOMERULAR FILTRATION RATE 114.8 ML/MIN; Potassium 4.4 mmol/L (3.5-5.1); Total Protein 6.2 g/dL (6.3-8.2)
[2024-06-07] MEDS: DELTASONE 20 MG PO SCH (09:57)
--- NOTE | 2024-06-07 10:44 | PCM.DS ---
Discharge Summary Date of Admission: 06/05/24 07:53 Date of Discharge: 06/07/24 Admitting Physician: WILEY CROOK MD Primary Care Provider: NO FAMILY DOCTOR Allergies Allergies doxycycline Allergy (Verified 06/05/24 05:37) morphine Allergy (Verified 03/08/23 11:36) IVP DYE Allergy (Severe, Uncoded 06/05/24 05:37) Hospital Summary - Hospital Course Hospital Course: is a 53 year old female with a pmhx of tobacco abuse and HLD who pr esented to ED 06/05/24 with complaints of fever, nausea, vomiting, cough, and dyspnea. Patient reports onset of symptoms 06/01/24. She has been unable to tolerate a diet and feels very weak. She has been febrile with TMax of 103 (Wednesday).Cough is productive with yellow sputum. Dyspnea worse with exertion. Denies recent sick contacts. Denies cp, abdominal pain, RANDLE, or dizziness. Upon arrival to ED patient hypoxic. Patient placed on 4L N[place]. EKG NS. CT abdomen demonstrating enlarged liver, cholelithiasis, right nephrolithiasis, right kidney angiomyolipoma, diverticulosis, intra-abdominal lymphadenopathy. Patient is advised to follow up OP for these findings. CXR with no acute findings. VQ scan negative. DDimer elevated (VQ scan ordered). Initial lab findings unremarkable. Respiratory viral panel negative. Patient received Ceftriaxone/azithromycin, DuoNebs, solumedrol in ED. Admit for acute respiratory failure with hypoxia. IP treatment with ceftriaxone/azith/solumedrol. Dyspnea, cough, and weakness greatly improve. Patient is now on RA and requesting discharge home. Will send home on Augmentin/prednisone. Patient agreeable to plan and stable for discharge. Advised follow up in one week with PCP. Discharge Note New Diagnosis: Acute bronchitis New Medications: Augmentin/prednisone/protonix Follow Up: PCP I spent 35 minutes [id number] with the patient on the day of discharge performing discharge exam, discussing hospital stay and discharge instructions with patient and caregivers, preparation of discharge records, prescriptions & referral forms and addressing any questions/concerns the patient had as documented above. - Vitals & Intake/Output Vital Signs: Vital Signs Temperature 97.0 F 06/07/24 07:24 Pulse Rate 52 L 06/07/24 07:34 Respiratory Rate 16 06/07/24 07:34 Blood Pressure 129/71 06/07/24 07:24 O2 Sat by Pulse Oximetry 93 L 06/07/24 07:34 Intake & Output: Intake & Output 06/04/24 06/05/24 06/06/24 06/07/24 11:59 11:59 11:59 11:59 Intake Total 120 2263 2960 Output Total 600 400 Balance 120 1663 2560 Weight 79.9 kg 81.7 kg 81.2 kg - Lab Result Diagrams: 06/07/24 05:16 06/07/24 05:16 Lab Results-Last 24 Hrs: Lab Results-Last 24 Hours 06/07/24 06/07/24 Range/Units 05:16 05:16 WBC 7.3 (3.98-10.04) x10^3/uL RBC 4.06 (3.93-5.22) x10^6/uL Hgb 11.2 (11.2-15.7) g/dL Hct 35.5 (34.1-44.9) % MCV 87.4 (79.4-94.8) fL MCH 27.6 (25.6-32.2) pg MCHC 31.5 L (32.2-35.5) g/dL RDW 15.2 H (11.7-14.4) % Plt Count 293 (182-369) x10^3/uL MPV 9.3 L (9.4-12.3) fL Gran % 69.9 (34.0-71.1) % Immature Gran % (Auto) 2.5 H (0.001-0.429) % Nucleat RBC Rel Count 0.0 (0.00-0.2) % Eos # (Auto) 0 L (0.04-0.36) x10^3/uL Immature Gran # (Auto) 0.18 H (0.001-0.031) x10^3u/L Absolute Lymphs (auto) 1.58 (1.18-3.74) x10^3/uL Absolute Monos (auto) 0.41 (0.24-0.86) x10^3/uL Absolute Nucleated RBC 0.00 (0.00-0.012) x10^3u/L Lymphocytes % 21.7 (19.3-51.7) % Monocytes % 5.6 (4.7-12.5) % Eosinophils % 0.0 L (0.7-5.8) % Basophils % 0.3 (0.1-1.2) % Absolute Granulocytes 5.09 (1.56-6.13) x10^3/uL Basophils # 0.02 (0.01-0.08) x10^3/uL Sodium 141 (135-145) mmol/L Potassium 4.4 (3.5-5.1) mmol/L Chloride 106 (98-107) mmol/L Carbon Dioxide 27 (22-30) mmol/L Anion Gap 12.8 (5-15) MEQ/L BUN 16 (7-17) mg/dL Creatinine 0.43 L (0.52-1.04) mg/dL Estimated GFR 114.8 ML/MIN Glucose 154 H (74-106) mg/dL Calcium 8.6 (8.4-10.2) mg/dL Total Bilirubin 0.30 (0.2-1.3) mg/dL AST 45 H (14-36) U/L ALT 29 (0-35) U/L Alkaline Phosphatase 70 (38-126) U/L Serum Total Protein 6.2 L (6.3-8.2) g/dL Albumin 3.6 (3.5-5.0) g/dL Micro Results-Entire Visit: Microbiology 06/05/24 04:31 Urine Culture - Final Clean Catch Midstream <10K NORMAL SKIN ZORAN PROBABLE SKIN CONTAMINANT 06/05/24 05:13 Blood Culture - Preliminary Blood 06/05/24 05:13 Blood Culture - Preliminary Blood - Radiology Exams Ordered Rad Exams-Entire Visit: Radiology Procedures Category Date Time Status CHEST 2 VIEWS (PA AND LAT) Routine Exams 06/05/24 14:31 Completed PULMONARY PERF PARTICULATE [NUCMED] Stat Exams 06/05/24 10:27 Completed - Procedures and Test Procedures and Tests throughout Hospitalization: Therapy Orders & Screens 06/05/24 04:17 Respiratory Therapy Assessment DAILY Comment: 06/05/24 12:49 Incentive Spirometry UD Comment: Diagnosis: Hypoxia, Respiratory Therapy Consult ONCE Comment: Reason For Exam: Diagnosis: Hypoxia, 06/05/24 13:18 Oxygen Nasal Cannula 2 lpm Comment: Diagnosis: Hypoxia, 06/05/24 18:18 EKG ROUTINE Comment: Diagnosis: Hypoxia, 06/07/24 07:34 Qualify for Home Oxygen TODAY Comment: Diagnosis: Hypoxia, Discharge Exam General Appearance: no apparent distress Neurologic Exam: alert, oriented x 3, cooperative Eye Exam: PERRL Ears, Nose, Throat Exam: normal ENT inspection Neck Exam: normal inspection Respiratory Exam: crackles/rales Cardiovascular Exam: regular rate/rhythm, normal heart sounds Gastrointestinal/Abdomen Exam: soft, normal bowel sounds Pelvic Exam: deferred Rectal Exam: deferred Back Exam: normal inspection Extremity Exam: normal inspection Skin Exam: normal color Final Diagnosis/Problem List - Final Discharge Diagnosis/Problem (1) Acute respiratory failure with hypoxia Current Visit: Yes Status: Acute Code(s): J96.01 - ACUTE RESPIRATORY FAILURE WITH HYPOXIA (2) Acute bronchitis Current Visit: Yes Status: Acute Code(s): J20.9 - ACUTE BRONCHITIS, UNSPECIFIED (3) Abnormal CT of the abdomen Current Visit: Yes Status: Chronic Code(s): R93.5 - ABN FINDINGS ON DX IMAGING OF ABD REGIONS, INC RETROPERITON (4) HLD (hyperlipidemia) Current Visit: Yes Status: Chronic Code(s): E78.5 - HYPERLIPIDEMIA, UNSPECIFIED - Discharge Discharge Date: 06/07/24 Disposition: Home, Self-Care Condition: Stable Prescriptions: New Amox Tr/Potass Clav. 875 mg [Augmentin 875-125 Tablet] 875 mg PO BID 7 Days #14 tablet Prednisone 20 mg [Deltasone 20 mg] 20 mg PO BID 5 Days #10 tablet Hydrocodone/Chlorphen P-Stirex [Hydrocodone-Chlorph ER Susp (TUSSIONEX)] 5 ml PO [id number] PRN 7 Days #70 ml MDD 10 PRN Reason: Cough PANTOPRAZOLE 40 mg Tablet [Protonix 40MG Tablet] 40 mg PO DAILY 30 Days #30 tablet Continue Aspirin 81 gm Chew [Baby Aspirin 81 mg Chew] 81 mg PO DAILY Albuterol/Ipratropium 3ml Neb* [DUONEB 0.5-3 MG/3 ml Neb] 3 ml IH Q4HRT 30 Days Follow up with: CARLY LAUREANO NP [NON-STAFF PHY W/O PRIVILEGES] - 06/12/24 2:00 pm (arrive 30 min earlier)
[2024-06-07 12:09] VITALS: BP 144/83; PULSE 59; RESP 20; TEMP 97.3; O2SAT 94
== END 2024-06-07 14:37 | disposition home or self-care (01) ==
LOC: ED 02:43 → MED SURG 07:53
PROVIDERS: ADMIT Internal Medicine; ATTEND Internal Medicine
DX: J96.01 Acute respiratory failure with hypoxia (principal); J20.9 Acute bronchitis, unspecified; R93.5 Abnormal findings on diagnostic imaging of other abdominal regions, including retroperitoneum; E78.5 Hyperlipidemia, unspecified; F17.200 Nicotine dependence, unspecified, uncomplicated; R50.9 Fever, unspecified; R11.2 Nausea with vomiting, unspecified; R05.1 Acute cough; Z79.899 Other long term (current) drug therapy
CPT/HCPCS: 0241U; 36415; 71045; 71046; 74176; 78580; 80053; 81001; 82550; 83690; 83880; 84484; 85025; 85379; 87040; 87086; 93005; 93041; 94640; 94760; 94762; 96360; 96361; 96372; 96374; 96375; 99285; A9540; Q3014; 93268; J0456; J0696; J1650; J2405; J2919; A9270-GY; G0378